=== PATIENT | male | born 1950 | race Caucasian/White ===

== ENCOUNTER 2019-04-12 11:17 | Inpatient (IN) | payer OTHER ==
[~2019-04-12] VITALS: Ht 177.8 cm; Wt 90.7 kg
[~2019-04-12 11:17] MED LIST: ASPI81TA85 PO; BENZ150C2 PO; CEFP200T PO; CHLO125TA PO; D3 H10002 PO; FLOM0.4C39 PO; METO25TA4 PO; PLAV1TAB2 PO; SIMV40TA2 PO; ZYLO300T6 PO
[2019-04-12 12:03] LABS: BASO % 0.2 % (0.0-1.0); EOS # 0.1 10^3/uL (0.0-0.5); EOS % 1.9 % (0.0-3.0); HEMATOCRIT 32.4 % (42.0-52.0); HEMOGLOBIN 10.3 g/dl (13.5-17.5); LYMPH # 0.9 10^3/uL (1.5-5.0); LYMPH % 16.9 % (24.0-44.0); MEAN CORPUSCULAR HEMOGLOBIN 30.1 pg (27.0-33.0); MEAN CORPUSCULAR HGB CONC 31.8 g/dl (32.0-36.5); MEAN CORPUSCULAR VOLUME 94.7 fl (80.0-96.0); MONO # 0.3 10^3/uL (0.0-0.8); MONO % 5.4 % (0.0-5.0); NEUTROPHILS % 74.8 % (36.0-66.0); PLATELET COUNT, AUTOMATED 235 10^3/uL (150-450); RED BLOOD COUNT 3.42 10^6/uL (4.30-6.10); WHITE BLOOD COUNT 5.3 10^3/uL (4.0-10.0)
--- NOTE | 2019-04-12 12:09 | REP ---
Portable chest x-ray: Single view. History: Chest pain. Findings: An Rtuhsc-M-Ahcv catheter is noted in place on the right side. EKG monitoring electrodes are seen. The lungs are symmetrically aerated and clear. Heart size is somewhat prominent unchanged. There is slight blunting of the left lateral pleural angle suspected. Impression: Suspect small left pleural effusion. Borderline heart size. Icacaj-B-Ubbm catheter. Electronically Signed by Porfirio Bangura MD 04/12/2019 12:01 P
[2019-04-12] MEDS ORDERED: DIGOXIN INJ 0.5 MG/2 ML AMP (J1160) IV ONE (12:15)
[2019-04-12 12:29] LABS: CK-MB VALUE MASS < 1.0 NG/ML (<3.6); CPK CREATINE PHOSPHOKINASE 68 U/L (39-308); CREATININE FOR GFR 2.21 MG/DL (0.70-1.30); GLOMERULAR FILTRATION RATE 31.5 (>42); MAGNESIUM LEVEL 1.7 MG/DL (1.8-2.4); MB/CK RELATIVE INDEX 1.47 (< OR =4); TROPONIN I < 0.02 NG/ML (< 0.10)
[2019-04-12] MEDS ORDERED: ZOCO80TA PO (12:29)
[2019-04-12] MEDS ORDERED: NON-325T5 PO (12:29)
[2019-04-12] MEDS ORDERED: BENZ200C70 PO (12:29)
[2019-04-12] MEDS ORDERED: COLA100C5 PO (12:29)
[2019-04-12] MEDS ORDERED: ENAL20TA PO (12:29)
[2019-04-12] MEDS ORDERED: FLOM0.4C39 PO (12:29)
[2019-04-12] MEDS ORDERED: ONDA4TAB5 PO (12:29)
[2019-04-12] MEDS ORDERED: METO50TA7 PO (12:29)
[2019-04-12] MEDS ORDERED: NS 1,000 ML IV ONE (12:30)
[2019-04-12] MEDS ORDERED: PACL1INJ2 IV (12:33)
[2019-04-12] MEDS ORDERED: CARB5INJ3 IV (12:33)
[2019-04-12] MEDS ORDERED: POTASSIUM CHLORIDE 10 MEQ SR TABLET PO ONE (12:45)
--- NOTE | 2019-04-12 13:44 | ECGEPIP ---
[facility] - ED Test Date: 2019-04-12 Pat Name: SHANE NICE Department: Room: - Gender: Male Director Of Therapy Services: : 1950 Requested By: Ramsey Suh Order Number: [id number] Reading MD: Rosetta Rodriguez Measurements Intervals [place] Rate: 118 P: [place]: 0 QRS: -2 QRSD: 87 T: -12 QT: 311 QTc: 437 Interpretive Statements ATRIAL FIBRILLATION WITH RAPID VENTRICULAR RESPONSE NONSPECIFIC ST & T-WAVE ABNORMALITY ABNORMAL RHYTHM ECG NO PRIOR Electronically Signed on 04-12-2019 13:44:09 EST by Rosetta Rodriguez
[2019-04-12] MEDS ORDERED: METOPROLOL TART 25 MG TABLET PO ONE (14:00)
[2019-04-12] MEDS ORDERED: ONDANSETRON 4 MG TAB (S0181) PO PRN (14:00)
[2019-04-12] MEDS ORDERED: BENZONATATE 100 MG CAP PO PRN (14:00)
[2019-04-12] MEDS ORDERED: METOPROLOL TART 25 MG TABLET PO SCH ×2 (14:15→21:00)
[2019-04-12] MEDS ORDERED: METOPROLOL 5 MG/5 ML VIAL IV PRN (14:15)
[2019-04-12] MEDS ORDERED: MAG SULF 1GM/100ML (MAG RUN) 1 GM in IV 1 EA IV ONE (15:00)
--- NOTE | 2019-04-12 15:08 | HPEPDOC ---
General Date of Admission Apr 12, 2019 at 13:51 Date of Service: Apr 12, 2019 Chief Complaint The patient is a 69-year-old male admitted with a reason for visit of Atrial Fibrillation With Rvr. Source: Patient, Family Exam Limitations: No limitations Timing/Duration: Day(s) Severity: Moderate Associated Symptoms: Weakness, Hypotension, Dizziness History of Present Illness Patient is 69 years old male with past medical history bladder carcinoma,Stage III B, [id number] left lung squamous cell carcinoma diagnosed June 2018, status post concurrent chemoradiation, coronary artery diseases, status post stent placement presented with weakness, hypotension. Patient stated that around 1 we ek ago he developed progressive weakness associated with syncope one time. Of note patient recently started second cycle of chemotherapy. Patient stated that he had a poor appetite and did not drink enough water. In emergency room patient was found to have blood pressure of 82/60, with atrial fibrillation on EKG with heart rate 151. Patient received 1 dose of digoxin and fluid resuscitation, his pulse became 120 and blood pressure improved to 126/78, orthostatic vital signs was positive. Patient denies fever, chills, vomiting, increased shortness of breath, diarrhea or dysuria Home Medications Scheduled Allopurinol (Zyloprim) 300 Mg Tablet, 300 MG PO DAILY, (Reported) Aspirin (Aspir 81) 81 Mg Tablet.dr, 81 MG PO DAILY, (Reported) Carboplatin (Carboplatin) 10 Mg/1 Ml Vial, 610 MG IV ASDIRECTED, (Reported) ON DAY 1 OF 21 DAY CYCLE Chlorthalidone (Chlorthalidone) 25 Mg Tablet, 12.5 MG PO DAILY, (Reported) Cholecalciferol (Vitamin D3) (Vitamin D3) 1,000 Unit Capsule, 2,000 UNIT PO DAILY, (Reported) Clopidogrel Bisulfate (Plavix) 75 Mg Tablet, 75 MG PO DAILY, (Reported) Docusate Sodium (Colace) 100 Mg Capsule, 100 MG PO BID, (Reported) Enalapril Maleate (Enalapril Maleate) 20 Mg Tablet, 20 MG PO DAILY, (Reported) Metoprolol Tartrate (Metoprolol Tartrate) 50 Mg Tablet, 25 MG PO BID, (Reported) Paclitaxel (Paclitaxel) 6 Mg/1 Ml Vial, 210 MG IV ASDIRECTED, (Reported) ON DAYS 1,8,15 OF 21 DAY CYCLE Simvastatin (Zocor) 80 Mg Tablet, 40 MG PO QHS, (Reported) Tamsulosin HCl (Flomax) 0.4 Mg Capsule, 0.4 MG PO DAILY, (Reported) Scheduled PRN Acetaminophen (Acetaminophen) 325 Mg Tablet, 650 MG PO Q6H PRN for PAIN, (Reported) Benzonatate (Benzonatate) 200 Mg Capsule, 200 MG PO BID PRN for COUGH, (Reported) Ondansetron HCl (Ondansetron HCl) 4 Mg Tablet, 4 MG PO Q4H PRN for NAUSEA OR VOMITING, (Reported) Allergies Coded Allergies: No Known Allergies (Unverified , 11/06/18) Past Medical History Medical History bladder carcinoma,Stage III B, [id number] left lung squamous cell carcinoma diagnosed June 2018, status post concurrent chemoradiation, coronary artery diseases, status post stent placement, gout Surgical History Aortic aneurysm repair in 2018 Family History His father from colon cancer, mother had diabetes, history of blood clots Social History * Smoker: former Smoker Alcohol: sober A-FIB/CHADSVASC A-FIB History Current/History of A-Fib/PAF?: Yes Current PO Anticoag Therapy: Yes Age/Risk Factor Scoring CHADSVASC: CHADSVASC Response (Comments) Value Age Risk Factor Age 65-74 years old 1 Gender Risk Factor Male 0 Hx of Vascular Disease Yes 1 Total 2 Treatment Treatment ordered: Rivaroxaban Review of Systems Constitutional: Reports: Weakness, Fatigue; Denies: Chills, Fever Eyes: Denies: Pain, Vision change ENT: Denies: Head Aches Skin: Denies: Rash, Lesions Pulmonary: Reports: Cough; Denies: Dyspnea Cardiovascular: Reports: Palpitations, Lt Headedness; Denies: Chest Pain Gastrointestinal: Denies: Nausea, Vomiting Genitourinary: Denies: Dysuria, Frequency Hematologic: Denies: Bruising Endocrine: Denies: Polydipsia, Polyphagia Musculoskeletal: Denies: Neck Pain Neurological: Denies: Weakness, Numbness Psych: Reports: Mood Normal Physical Examination General Exam: Positive: Alert, Cooperative Eye Exam: Positive: PERRLA, Conjunctiva & lids normal ENT Exam: Positive: Atraumatic Neck Exam: Positive: Supple; Negative: JVD Chest Exam: Positive: Rhonchi, Diminished Heart Exam: Positive: Irregular Rhythm Telemetry: Positive: Atrial fibrillation Abdomen Exam: Positive: Normal bowel sounds Extremity Exam: Positive: Cyanosis; Negative: Clubbing Skin Exam: Positive: Nl turgor and temperature Neuro Exam: Positive: Normal Gait, Strength at 5/5 X4 ext, Cranial Nerves 3-12 NL Psych Exam: Positive: Mental status NL Vital Signs Vital Signs Date Time Temp Pulse Resp B/P (MAP) Pulse Ox O2 Delivery O2 Flow Rate FiO2 04/12/19 13:06 120 20 126/78 (94) 98 Room Air 04/12/19 11:23 97.7 Laboratory Data Labs 24H Laboratory Tests 2 04/12/19 11:30: Immature Granulocyte % (Auto) 0.8, Neutrophils (%) (Auto) 74.8H, Lymphocytes (%) (Auto) 16.9L, Monocytes (%) (Auto) 5.4H, Eosinophils (%) (Auto) 1.9, Basophils (%) (Auto) 0.2, Neutrophils # (Auto) 4.0, Lymphocytes # (Auto) 0.9L, Monocytes # (Auto) 0.3, Eosinophils # (Auto) 0.1, Basophils # (Auto) 0.0, Nucleated Red Blood Cells % (auto) 0.0, Glomerular Filtration Rate 31.5L, Magnesium Level 1.7L, Total Creatine Kinase 68, Creatine Kinase MB < 1.0, Creatine Kinase MB Relative Index 1.47, Troponin I < 0.02, Thyroid Stimulating Hormone (TSH) 1.380 04/12/19 11:51: POC Glucose (Misc Panel) 128H, POC Sodium (Misc Panel) 139, POC Potassium (Misc Panel) 3.0L, POC Chloride (Misc Panel) 101, POC Total CO2 (Misc Panel) 25.0, POC Blood Urea Nitrogen (Misc Panel 38H, POC Ionized Calcium (Misc Panel) 4.7, POC Creatinine (Misc Panel) 2.3H, POC Hematocrit (Misc Panel) 33.0L 04/12/19 14:19: CBC/BMP Laboratory Tests 04/12/19 11:30 Assessment/Plan Patient is 69 years old male with past medical history bladder carcinoma,Stage III B, [id number] left lung squamous cell carcinoma diagnosed June 2018, status post concurrent chemoradiation, coronary artery diseases, status post stent p lacement presented with weakness, hypotension. Patient stated that around 1 week ago he developed progressive weakness associated with syncope one time. Patient was found to have atrial fibrillation with rapid ventricular rate Problems (1) Atrial fibrillation with RVR Status: Acute Problem Text: New onset of atrial fibrillation Gerson Vasc score 2 Xarelto PO I increased the dose of metoprolol to 50 mg by mouth twice a day Lopressor 5 mg IV when necessary Echo (2) Hypotension Problem Text: Most likely secondary to atrial fibrillation and dehydration Improved after IV fluid resuscitation (3) Hypomagnesemia Status: Acute Problem Text: Replaced (4) Hypokalemia Status: Acute Problem Text: Replaced (5) Acute renal failure Status: Acute Problem Text: Most likely secondary to dehydration due to poor oral intake Continue to monitor Continue IV hydration (6) Stage III squamous cell carcinoma of left lung Onset Date: ~ 06/2018 Status: Chronic Problem Text: Follow-up with oncologist in the outpatient settings (7) Coronary artery disease Status: Chronic Problem Text: Continue cardioprotective medications Plan / VTE VTE Prophylaxis Ordered?: Yes ANTHONY JONES DO Apr 12, 2019 15:08
[2019-04-12 15:14] LABS: BLOOD UREA NITROGEN 40 MG/DL (7-18); CALCIUM LEVEL 8.6 MG/DL (8.8-10.2); CARBON DIOXIDE LEVEL 27 MEQ/L (21-32); CHLORIDE LEVEL 106 MEQ/L (98-107); GLOMERULAR FILTRATION RATE 35.3 (>42); GLUCOSE, FASTING 126 MG/DL (70-100); MAGNESIUM LEVEL 1.7 MG/DL (1.8-2.4); POTASSIUM SERUM 3.7 MEQ/L (3.5-5.1); SODIUM LEVEL 142 MEQ/L (136-145); TROPONIN I < 0.02 NG/ML (< 0.10)
[2019-04-12 15:38] VITALS: BP 94/66
[2019-04-12] MEDS: NS 1,000 ML IV SCH (16:09)
[2019-04-12] MEDS: CLOPIDOGREL 75 MG TAB PO SCH (16:12)
[2019-04-12] MEDS ORDERED: RIVAROXABAN 10 MG TAB (XARELTO) PO SCH (18:00)
[2019-04-12] MEDS ORDERED: SLF 3 ML SYR IV PRN (18:30)
[2019-04-12 20:00] VITALS: BP 121/68
[2019-04-12] MEDS ORDERED: SIMVASTATIN 40 MG TAB PO SCH (21:00)
[2019-04-12] MEDS: DOCUSATE SODIUM 100 MG CAP PO SCH (21:17)
[2019-04-12] MEDS: ACETAMINOPHEN TAB 650MG DOSE (2X325MG) PO PRN (21:18)
[2019-04-12] MEDS: SLF 3 ML SYR IV SCH (21:19)
[2019-04-12] MEDS: METOPROLOL TART 25 MG TABLET PO SCH (21:19)
[2019-04-13] VITALS: BP 98/58
[2019-04-13] MEDS: NS 1,000 ML IV SCH (02:35)
[2019-04-13 04:00] VITALS: BP 101/54
[2019-04-13] MEDS: SLF 3 ML SYR IV SCH (05:02)
[2019-04-13 06:21] LABS: HEMATOCRIT 26.3 % (42.0-52.0); HEMOGLOBIN 8.4 g/dl (13.5-17.5); MEAN CORPUSCULAR HEMOGLOBIN 30.4 pg (27.0-33.0); MEAN CORPUSCULAR HGB CONC 31.9 g/dl (32.0-36.5); MEAN CORPUSCULAR VOLUME 95.3 fl (80.0-96.0); PLATELET COUNT, AUTOMATED 166 10^3/uL (150-450); RED BLOOD COUNT 2.76 10^6/uL (4.30-6.10); WHITE BLOOD COUNT 3.7 10^3/uL (4.0-10.0)
[2019-04-13 06:31] LABS: ALBUMIN 2.5 GM/DL (3.2-5.2); ALT/SGPT 22 U/L (12-78); BILIRUBIN,TOTAL 0.3 MG/DL (0.2-1.0); BLOOD UREA NITROGEN 33 MG/DL (7-18); CALCIUM LEVEL 8.7 MG/DL (8.8-10.2); CARBON DIOXIDE LEVEL 25 MEQ/L (21-32); CHLORIDE LEVEL 110 MEQ/L (98-107); GLOMERULAR FILTRATION RATE 49.3 (>42); GLUCOSE, FASTING 110 MG/DL (70-100); POTASSIUM SERUM 3.8 MEQ/L (3.5-5.1); SODIUM LEVEL 141 MEQ/L (136-145); TOTAL PROTEIN 6.2 GM/DL (6.4-8.2); TROPONIN I < 0.02 NG/ML (< 0.10)
[2019-04-13 07:34] LABS: MAGNESIUM LEVEL 1.7 MG/DL (1.8-2.4)
[2019-04-13 08:00] VITALS: BP 119/70
[2019-04-13] MEDS ORDERED: ENALAPRIL MALEATE 10 MG TAB PO SCH (09:00)
[2019-04-13] MEDS ORDERED: VITAMIN D 1,000 INTERNATIONAL UNITS TABLET PO SCH (09:00)
[2019-04-13] MEDS ORDERED: ALLOPURINOL 300 MG TAB PO SCH (09:00)
[2019-04-13] MEDS ORDERED: TAMSULOSIN 0.4 MG CAP PO SCH (09:00)
[2019-04-13] MEDS ORDERED: ASPIRIN 81 MG ENTERIC TAB PO SCH (09:00)
[2019-04-13] MEDS: DOCUSATE SODIUM 100 MG CAP PO SCH (09:25)
[2019-04-13] MEDS: CLOPIDOGREL 75 MG TAB PO SCH (09:26)
[2019-04-13] MEDS: ACETAMINOPHEN TAB 650MG DOSE (2X325MG) PO PRN (09:26)
[2019-04-13] MEDS: METOPROLOL TART 25 MG TABLET PO SCH (09:27)
[2019-04-13 11:18] VITALS: BP 119/70
[2019-04-13 12:00] VITALS: BP 109/58
[2019-04-13] MEDS ORDERED: XARE10TA PO (12:13)
[2019-04-13] MEDS ORDERED: METO1TAB87 PO (12:13)
--- NOTE | 2019-04-13 14:22 | DS.PDOC ---
Discharge Summary General Date of Admission Apr 12, 2019 at 13:51 Date of Discharge 04/13/19 Discharge Summary PROCEDURES PERFORMED DURING STAY: [None]. ADMITTING DIAGNOSES: Atrial fibrillation with RVR Hypotension Hypomagnesemia Hypokalemia Acute renal failure Stage III squamous cell carcinoma of left lung Coronary artery disease DISCHARGE DIAGNOSES: Atrial fibrillation with RVR Hypotension Hypomagnesemia Hypokalemia Acute renal failure Stage III squamous cell carcinoma of left lung Coronary artery disease COMPLICATIONS/CHIEF COMPLAINT: Atrial Fibrillation With Rvr. HISTORY OF PRESENT ILLNESS: Patient is 69 years old male with past medical history bladder carcinoma,Stage III B, [id number] left lung squamous cell carcinoma diagnosed June 2018, status post concurrent chemoradiation, coronary artery diseases, status post stent placement presented with weakness, hypotension. Patient stated that around 1 week ago he developed progressive weakness associated with syncope one time. Of note patient recently started second cycle of chemotherapy. Patient stated that he had a poor appetite and did not drink enough water. In emergency room patient was found to have blood pressure of 82/60, with atrial fibrillation on EKG with heart rate 151. Patient received 1 dose of digoxin and fluid resuscitation, his pulse became 120 and blood pressure improved to 126/78, orthostatic vital signs was positive. Patient denies fever, chills, vomiting, increased shortness of breath, diarrhea or dysuria HOSPITAL COURSE: During hospital stay following issue addressed (1) Atrial fibrillation with RVR New onset of atrial fibrillation Gerson Vasc score 2 Xarelto PO I increased the dose of metoprolol to 50 mg by mouth twice a day. On 04/13/19 heart rate is within normal limit Lopressor 5 mg IV when necessary Echo (2) Hypotension Problem Text: Most likely secondary to atrial fibrillation and dehydration Improved after IV fluid resuscitation (3) Hypomagnesemia Status: Acute Problem Text: Replaced (4) Hypokalemia Status: Acute Problem Text: Replaced (5) Acute renal failure Improved Most likely secondary to dehydration due to poor oral intake Patient received IV hydration (6) Stage III squamous cell carcinoma of left lung Onset Date: ~ 06/2018 Status: Chronic Problem Text: Follow-up with oncologist in the outpatient settings (7) Coronary artery disease Status: Chronic Problem Text: Continue cardioprotective medications DISCHARGE MEDICATIONS: Please see below. ALLERGIES: Please see below. PHYSICAL EXAMINATION ON DISCHARGE: VITAL SIGNS: Please see below. GENERAL APPEARANCE: Well-nourished, well-developed, not in apparent distress HEENT: Normocephalic, atraumatic. Mucous members moist and pink CARDIOVASCULAR: S1-S2, irregularly irregular LUNGS: . Diminished lung sounds, ABDOMEN: Bowel sounds are hypoactive. Abdomen is soft and nontender. MUSCULOSKELETAL: Range of motion is intact in all 4 extremities NEUROLOGICAL: Cranial nerves II-12 are grossly intact. Speech is not dysarthric LABORATORY DATA: Please see below. IMAGING: Test Date: 2019-04-12 Pat Name: SHANE NICE Department: Room: - Gender: Male Assisted Living Administrator: : 1950 Requested By: Ramsey Suh Order Number: [id number] Reading MD: Rosetta Rodriguez Measurements Intervals [place] Rate: 118 P: TX: 0 QRS: -2 QRSD: 87 T: -12 QT: 311 QTc: 437 Interpretive Statements ATRIAL FIBRILLATION WITH RAPID VENTRICULAR RESPONSE NONSPECIFIC ST & T-WAVE ABNORMALITY ABNORMAL RHYTHM ECG NO PRIOR Electronically Signed on 04-12-2019 13:44:09 EST by Rosetta Rodriguez DD: Rosetta Rodriguez MD 04/12/19 1143 DT: KENIA 04/12/19 1344 DS: HUONG 04/12/19 1344 04/12/19 1344 DS2: PROGNOSIS: Favorable ACTIVITY:As tolerated DIET: Cardiac DISCHARGE PLAN: Home DISCHARGE INSTRUCTIONS: Continue taking prescribed medications ITEMS TO FOLLOWUP ON ON OUTPATIENT: PCP, oncologist, sql server architect next week DISCHARGE CONDITION: Stable TIME SPENT ON DISCHARGE: Greater than 20 minutes. Vital Signs/I&Os Vital Signs Date Time Temp Pulse Resp B/P (MAP) Pulse Ox O2 Delivery O2 Flow Rate FiO2 04/13/19 12:00 97.8 78 16 109/58 (75) 97 Room Air I&O- Last 24 Hours up to 6 AM 04/13/19 06:00 Intake Total 2800 ml Output Total 550 ml Balance 2250 ml Laboratory Data Labs 24H Laboratory Tests 2 04/12/19 14:19: Anion Gap 9, Glomerular Filtration Rate 35.3L, Calcium Level 8.6L, Magnesium Level 1.7L, Troponin I < 0.02, Thyroid Stimulating Hormone (TSH) 1.050 04/12/19 17:37: Magnesium Level 2.1 04/12/19 21:58: Troponin I < 0.02 04/13/19 05:41: Anion Gap 6L, Glomerular Filtration Rate 49.3, Calcium Level 8.7L, Magnesium Level 1.7L, Troponin I < 0.02, Nucleated Red Blood Cells % (auto) 0.0, Total Bilirubin 0.3, Aspartate Amino Transf (AST/SGOT) 11, Alanine Aminotransferase (ALT/SGPT) 22, Alkaline Phosphatase 80, Total Protein 6.2L, Albumin 2.5L, Albumin/Globulin Ratio 0.68L CBC/BMP Laboratory Tests 04/12/19 14:19 04/13/19 05:41 Discharge Medications Scheduled Allopurinol (Zyloprim) 300 Mg Tablet, 300 MG PO DAILY, (Reported) Aspirin (Aspir 81) 81 Mg Tablet.dr, 81 MG PO DAILY, (Reported) Carboplatin (Carboplatin) 10 Mg/1 Ml Vial, 610 MG IV ASDIRECTED, (Reported) ON DAY 1 OF 21 DAY CYCLE Chlorthalidone (Chlorthalidone) 25 Mg Tablet, 12.5 MG PO DAILY, (Reported) Cholecalciferol (Vitamin D3) (Vitamin D3) 1,000 Unit Capsule, 2,000 UNIT PO DAILY, (Reported) Clopidogrel Bisulfate (Plavix) 75 Mg Tablet, 75 MG PO DAILY, (Reported) Docusate Sodium (Colace) 100 Mg Capsule, 100 MG PO BID, (Reported) Enalapril Maleate (Enalapril Maleate) 20 Mg Tablet, 20 MG PO DAILY, (Reported) Metoprolol Tartrate (Metoprolol Tartrate) 25 Mg Tablet, 50 MG PO BID Paclitaxel (Paclitaxel) 6 Mg/1 Ml Vial, 210 MG IV ASDIRECTED, (Reported) ON DAYS 1,8,15 OF 21 DAY CYCLE Rivaroxaban (Xarelto) 10 Mg Tablet, 10 MG PO DAILY@18 Simvastatin (Zocor) 80 Mg Tablet, 40 MG PO QHS, (Reported) Tamsulosin HCl (Flomax) 0.4 Mg Capsule, 0.4 MG PO DAILY, (Reported) Scheduled PRN Acetaminophen (Acetaminophen) 325 Mg Tablet, 650 MG PO Q6H PRN for PAIN, (Reported) Benzonatate (Benzonatate) 200 Mg Capsule, 200 MG PO BID PRN for COUGH, (Reported) Ondansetron HCl (Ondansetron HCl) 4 Mg Tablet, 4 MG PO Q4H PRN for NAUSEA OR VOMITING, (Reported) Allergies Coded Allergies: No Known Allergies (Unverified , 11/06/18) ANTHONY JONES DO Apr 13, 2019 14:22
--- NOTE | 2019-04-13 14:31 | ECHO ---
DATE OF PROCEDURE: DATE OF STUDY: 04/12/2019 DATE OF : 1950 AGE: 69 REFERRING PROVIDER: Dr. Abiodun Doyle PATIENT LOCATION: Room 3244 REASON FOR THE STUDY: Atrial fibrillation. 2-D MEASUREMENTS: IVS: 1.0 cm LV: 5.4 cm LVPW: 1.1 cm LA: 2.9 cm Aorta: 3.9 cm RV: 2.3 cm IVC: 1.5 cm DOPPLER MEASUREMENTS: Peak velocity across the aortic valve: 1.1 m/s Mitral E: 0.75 Mitral A: 0.90 Ratio: 0.8 2-D COMMENTS: 1. Normal left ventricular size, wall thickness, and overall global left ventricular systolic function. The estimated left ventricular systolic ejection fraction is 55-60%. 2. Normal left atrium. 3. Normal right atrium and right ventricle. 4. The atrial septum appeared to be normal without evidence of defect or shunt. 5. Normal aortic root. Not mentioned above, the ascending aorta is mildly enlarged at 3.7 cm. 6. Small pericardial effusion noted, no evidence of cardiac tamponade. 7. The aortic valve, mitral valve, and tricuspid valve appeared to be normal. The pulmonic valve and proximal pulmonary artery branches were not well visualized. 8. The inferior vena cava was normal in size, central venous pressure is most likely normal. 9. A liver cyst was noted. DOPPLER: No significant valvular abnormalities detected. Abnormal relaxation pattern was noted across the mitral valve leaflets as well as the mitral valve annulus consistent with features of grade 1 left ventricular diastolic dysfunction. IMPRESSION: 1. Normal global left ventricular systolic function. There are some features of grade 1 left ventricular diastolic dysfunction manifested by abnormal relaxation. 2. A small pericardial effusion was noted, no evidence of cardiac tamponade. 3. Mildly dilated ascending aorta at 3.7 cm. 4. No significant valvular abnormalities detected. 5. A liver cyst was noted. The patient might benefit from further imaging study. 6. The patient was in normal sinus rhythm during the test.
== END 2019-04-13 14:19 | disposition home or self-care (01) | DRG 309 ==
LOC: M ED 11:17 → M ED INP 13:51 → M PCU 15:32
PROVIDERS: ADMIT Internal Medicine; ATTEND Internal Medicine
DX: I48.91 Unspecified atrial fibrillation (principal); C34.92 Malignant neoplasm of unspecified part of left bronchus or lung; N17.9 Acute kidney failure, unspecified; E83.42 Hypomagnesemia; E86.0 Dehydration; E87.6 Hypokalemia; I95.9 Hypotension, unspecified; I25.10 Atherosclerotic heart disease of native coronary artery without angina pectoris; M10.9 Gout, unspecified; Z85.51 Personal history of malignant neoplasm of bladder; Z92.21 Personal history of antineoplastic chemotherapy; Z79.82 Long term (current) use of aspirin; Z79.01 Long term (current) use of anticoagulants; Z79.899 Other long term (current) drug therapy; Z86.79 Personal history of other diseases of the circulatory system; Z95.828 Presence of other vascular implants and grafts; Z87.891 Personal history of nicotine dependence

== ENCOUNTER → 2019-04-18 | Outpatient (CLI) | payer OTHER ==
[~2019-04-18] MED LIST changes: +BENZ200C70 PO; +CARB5INJ3 IV; +COLA100C5 PO; +ENAL20TA PO; +METO1TAB87 PO; +METO50TA7 PO; +NON-325T5 PO; +ONDA4TAB5 PO; +PACL1INJ2 IV; +XARE10TA PO; +ZOCO80TA PO
--- NOTE | 2019-04-18 18:13 | REP ---
Five views lumbar spine: 04/18/2019. Indication: Low back pain following injury. Comparison: 09/26/2018. Findings: The the patient is status post Endograft aortic and bilateral renal artery stents. There is compression of the superior L1 endplate with mild loss of craniocaudal height. This appears chronic, however, was not present in September. Multilevel degenerative sequelae are redemonstrated. No acute paraspinal soft tissue abnormalities are detected. Impression: Age indeterminate superior L1 endplate compression deformity as described. Otherwise unchanged compared to 09/26/2018. Electronically Signed by Jarred Deleon DO 04/18/2019 06:04 P
--- NOTE | 2019-04-19 00:29 | REP ---
Clinical: Trauma. Fall. Technique: AP and lateral views of the right knee. Findings: Generalized age-related changes are appreciated. No acute fracture or dislocation. No definite effusion. Impression: Generalized age-related changes. No acute fracture or dislocation appreciated Electronically Signed by Prashanth Franco MD 04/19/2019 12:21 A
== END ==
LOC: M RAD 16:13
PROVIDERS: ATTEND Internal Medicine Medical Oncology
DX: M25.561 Pain in right knee (principal); M53.86 Other specified dorsopathies, lumbar region; M54.5 Low back pain

== ENCOUNTER 2019-04-24 13:48 | Emergency (ER) | payer OTHER ==
[~2019-04-24] VITALS: Ht 177.8 cm; Wt 87.3 kg
[2019-04-24] MEDS ORDERED: CLOP75TA2 PO (14:19)
--- NOTE | 2019-04-24 14:39 | REP ---
CHEST, SINGLE VIEW: Single view of the chest is performed and compared to a prior study of 04/12/2019. There is cardiomegaly again noted. There is ectasia of the thoracic aorta. Mediastinal silhouette is unchanged. There is no evidence of acute infiltrate. Right central venous catheter is again seen. IMPRESSION: Stable exam. No acute infiltrate. Electronically Signed by Lalit Childers MD 04/25/2019 11:23 A
[2019-04-24 14:53] LABS: VENOUS BASE EXCESS 0.8 (-2.0-2.0); VENOUS HCO3 25.7 MEQ/L (23.0-27.0); VENOUS O2 SATURATION 79.6 % (60.0-80.0); VENOUS PARTIAL PRESSURE CO2 41.9 mmHg (38.0-50.0); VENOUS PARTIAL PRESSURE O2 45.9 mmHg (30.0-50.0); VENOUS PH 7.405 UNITS (7.330-7.430); VENOUS STANDARD HCO3 24.9 MEQ/L
[2019-04-24 14:57] LABS: BASO % 0.6 % (0.0-1.0); EOS # 0.1 10^3/uL (0.0-0.5); EOS % 3.4 % (0.0-3.0); HEMATOCRIT 26.9 % (42.0-52.0); HEMOGLOBIN 8.5 g/dl (13.5-17.5); LYMPH # 0.6 10^3/uL (1.5-5.0); LYMPH % 19.3 % (24.0-44.0); MEAN CORPUSCULAR HEMOGLOBIN 30.4 pg (27.0-33.0); MEAN CORPUSCULAR HGB CONC 31.6 g/dl (32.0-36.5); MEAN CORPUSCULAR VOLUME 96.1 fl (80.0-96.0); MONO # 0.2 10^3/uL (0.0-0.8); MONO % 6.2 % (0.0-5.0); NEUTROPHILS # 2.2 10^3/uL (1.5-8.5); NEUTROPHILS % 67.4 % (36.0-66.0); PLATELET COUNT, AUTOMATED 191 10^3/uL (150-450); WHITE BLOOD COUNT 3.2 10^3/uL (4.0-10.0)
[2019-04-24 15:12] LABS: INR 1.17; PROTHROMBIN TIME 14.6 SECONDS (11.8-14.0)
[2019-04-24 15:30] LABS: ALBUMIN 2.9 GM/DL (3.2-5.2); ALT/SGPT 31 U/L (12-78); BILIRUBIN,DIRECT < 0.1 MG/DL (0.0-0.2); BILIRUBIN,TOTAL 0.3 MG/DL (0.2-1.0); BLOOD UREA NITROGEN 23 MG/DL (7-18); CALCIUM LEVEL 8.6 MG/DL (8.8-10.2); CARBON DIOXIDE LEVEL 28 MEQ/L (21-32); CHLORIDE LEVEL 105 MEQ/L (98-107); CK-MB VALUE MASS < 1.0 NG/ML (<3.6); CPK CREATINE PHOSPHOKINASE 34 U/L (39-308); CREATININE FOR GFR 1.24 MG/DL (0.70-1.30); GLOMERULAR FILTRATION RATE > 60.0 (>42); GLUCOSE, FASTING 96 MG/DL (70-100); MB/CK RELATIVE INDEX 2.94 (< OR =4); NT-PRO BNP 120 PG/ML (<125); POTASSIUM SERUM 3.6 MEQ/L (3.5-5.1); SODIUM LEVEL 140 MEQ/L (136-145); TOTAL PROTEIN 7.4 GM/DL (6.4-8.2); TROPONIN I < 0.02 NG/ML (< 0.10)
[2019-04-24] MEDS ORDERED: ISOVUE-370 76% 100ML VIAL (Q9967) As Ordered ONE (15:32)
--- NOTE | 2019-04-24 16:37 | REP ---
CT angiography of the abdomen with IV contrast: History: Recent abdominal aortic aneurysm repair. Chest pain, shortness of breath and bloody sputum. History of lung carcinoma. Comparison CT study abdomen and pelvis September 26, 2018. 100 mL of intravenous Isovue [address] findings: Preliminary digital emergency planning and response manager radiograph demonstrates aortobi-iliac stent graft in place. Bowel gas pattern is normal. There is pleuroparenchymal opacity in the left base unchanged. There are new nodular densities in the lung bases particularly in the right base compared to the September 26, 2018 study. There is fatty infiltration of the liver. There are two adjacent low density nonenhancing liver masses consistent with cysts. There is a small left adrenal nodule, which is unchanged. This measures 2.3 cm in greatest diameter. There is an upper pole cyst in the left kidney measuring 4.2 cm in diameter. Smaller cysts are noted in the kidneys bilaterally. There is bilateral intrarenal nephrolithiasis also noted. The largest calculus is in the lower pole right kidney, 6.6 mm in diameter. No hydronephrosis is seen. No pancreatic abnormality is noted. There are calcific densities in the neck of the gallbladder consistent with cholelithiasis. An aortobi-iliac stent graft is seen in place. There is no evidence of Endo leak. There are bilateral renal artery stents. No evidence of retroperitoneal hematoma. There is left colonic diverticulosis without CT evidence of diverticulitis. Small and large bowel loops are unremarkable. A normal appendix is visible in the right lower quadrant. Urinary bladder is unremarkable. Prostate and seminal vesicles appear intact. No abdominal wall defect is seen. Impression: Aortobi-iliac stent graft in place treating a 6.8 cm abdominal aortic aneurysm. No evidence of graft leak or hematoma. Left colonic diverticulosis. Fatty infiltration of the liver. Hepatic and splenic cysts. Bilateral intrarenal nephrolithiasis without hydronephrosis. 2.2 cm left adrenal nodule. Metastatic nodules in the right lung base. Electronically Signed by Porfirio Bangura MD 04/24/2019 05:00 P
--- NOTE | 2019-04-24 16:48 | REP ---
CT pulmonary angiogram: With IV contrast. History: Recent abdominal aortic aneurysm repair. Chest pain shortness of breath. Bloody sputum. The patient gives a history of lung carcinoma. Comparison studies: Comparison CT study March 22, 2019. Contrast dose: 100 ML of Isovue [address] technique: Helical scanning is acquired and overlapping 1.5 mm and contiguous 3 mm axial images are reformatted. In addition, maximum intensity projection and multiplanar re-formation images are generated in sagittal and coronal imaging projections. CT pulmonary angiographic findings: There is good opacification in the pulmonary arterial tree. No vessel cutoff or filling defect is seen in the pulmonary arterial tree to suggest pulmonary embolism. Thoracic aorta is well opacified as well. The ascending aorta is normal in caliber. There is a aneurysm involving the transverse aorta. This segment of the thoracic aorta measures 5.2 cm in greatest transverse dimension. This is unchanged from comparison CT study March 22, 2019. There is no evidence of dissection. There is a tiny amount of left pleural fluid visible today which is a new finding. There are multiple pulmonary nodules bilaterally as before. The largest of these is in the a right lower lobe posteriorly where two adjacent nodules measure 1.6 and 1.5 cm in greatest diameter respectively. There is some patchy consolidation in the left lower lobe posteriorly which is unchanged from 03/22/2019. Right hilar, left hilar, subcarinal, peritracheal, an anterior mediastinal lymphadenopathy is observed. There is left supraclavicular lymphadenopathy as well. There is adenopathy insinuated between the transverse aorta and the trachea displacing the trachea somewhat to the right and narrowing it mildly. There is some mass effect on the brachial cephalic vein and superior vena cava as well although these structures are patent. A right internal jugular central venous Ustomo-P-Uoev catheter is noted in place. No pericardial effusion is appreciated. No bony destructive lesion is seen. Stents are noted in place in the right renal artery. There are low-density lesions in the left lobe of the liver most consistent with cysts unchanged. There is a small mass in the left adrenal gland measuring 2.3 cm in diameter. This is compatible with an adrenal metastasis. There is a cyst in the left kidney measuring 3.9 cm. There are also three tiny intrarenal calculi in the upper pole left kidney. Impression: No CT evidence of pulmonary embolus. 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 No evidence of dissection. Metastatic pulmonary nodules and bulky metastatic mediastinal and hilar lymphadenopathy again seen unchanged from the March 22, 2019 study. Small left adrenal mass. Stable low density lesions in the liver compatible with cysts. Electronically Signed by Porfirio Bangura MD 04/24/2019 05:00 P
[2019-04-24 18:00] VITALS: BP 114/65
[2019-04-24 18:40] LABS: CK-MB VALUE MASS < 1.0 NG/ML (<3.6); CPK CREATINE PHOSPHOKINASE 34 U/L (39-308); MB/CK RELATIVE INDEX 2.94 (< OR =4); TROPONIN I < 0.02 NG/ML (< 0.10)
[2019-04-25] MEDS ORDERED: METO1TAB87 PO (09:20)
--- NOTE | 2019-04-25 15:00 | ECGEPIP ---
[facility] - ED Test Date: 2019-04-24 Pat Name: SHANE NICE Department: Room: - Gender: Male Spanish Interpreter/Translator: AB : 1950 Requested By: Rosetta Rodriguez Order Number: [id number] Reading MD: Ramsey Suazo Measurements Intervals [place] Rate: 92 P: 51 [place]: 171 QRS: 44 QRSD: 86 T: 28 QT: 358 QTc: 443 Interpretive Statements SINUS RHYTHM NONSPECIFIC T-WAVE ABNORMALITY BASELINE ARTIFACT AFFECTS INTERPRETATION RHYTHM/RATE CHANGE COMPARED TO 04/12/19 Electronically Signed on 04-25-2019 15:00:02 EST by Ramsey Suazo
--- NOTE | 2019-04-25 15:01 | ECGEPIP ---
[facility] - ED Test Date: 2019-04-24 Pat Name: SHANE NICE Department: Room: - Gender: Male Hide Buffer: : 1950 Requested By: LEE ANN HUFF Order Number: [id number] Reading MD: Ramsey Suazo Measurements Intervals [place] Rate: 95 P: 49 [place]: 199 QRS: 1 QRSD: 104 T: -7 QT: 372 QTc: 469 Interpretive Statements SINUS RHYTHM NONSPECIFIC T WAVE ABNORMALITIES BASELINE ARTIFACT AFFECTS INTERPRETATION SIMILAR TO PRIOR ON SAME DATE Electronically Signed on 04-25-2019 15:01:00 EST by Ramsey Suazo
--- NOTE | 2019-04-26 10:29 | ED PDOC ---
Post-Departure Follow-Up dr villafuerte faxed formalmreport of cta chest and abd for fu. Gentry Montoya MD Apr 26, 2019 10:29
== END 2019-04-24 19:09 | disposition home or self-care (01) ==
LOC: M ED 13:48
DX: K92.0 Hematemesis (principal); C34.31 Malignant neoplasm of lower lobe, right bronchus or lung; I71.4 Abdominal aortic aneurysm, without rupture; K76.0 Fatty (change of) liver, not elsewhere classified; K57.90 Diverticulosis of intestine, part unspecified, without perforation or abscess without bleeding; K76.89 Other specified diseases of liver; D73.4 Cyst of spleen; E27.9 Disorder of adrenal gland, unspecified; I10 Essential (primary) hypertension; E78.5 Hyperlipidemia, unspecified; N40.0 Benign prostatic hyperplasia without lower urinary tract symptoms; C67.9 Malignant neoplasm of bladder, unspecified; Z87.891 Personal history of nicotine dependence; Z79.899 Other long term (current) drug therapy; Z79.82 Long term (current) use of aspirin; Z79.02 Long term (current) use of antithrombotics/antiplatelets
CPT/HCPCS: 71045; 71275; 74174; 80048; 80076; 82550; 82553; 82803; 83605; 83880; 84443; 84484; 85025; 85610; 87040; 87486; 87581; 87633; 87798; 93005; 93041; 99285; Q9967

== ENCOUNTER → 2019-06-06 | Outpatient (CLI) | payer OTHER ==
[~2019-06-06] MED LIST changes: +CLOP75TA2 PO; +GASTROGRAFIN SOLUTION 30ML (Q9963) As Ordered ONE; +HYDR-4571 PO; +ISOVUE-370 76% 100ML VIAL (Q9967) As Ordered ONE; -SIMV40TA2 PO; +SIMV40TA20 PO
--- NOTE | 2019-06-06 13:48 | REP ---
CT THORACIC ANGIOGRAM: With IV contrast. HISTORY: Pulmonary embolus, shortness of breath, lymphadenopathy. Stage III squamous cell carcinoma left lung. Post two cycles chemotherapy. COMPARISON STUDIES: Comparison study April 24, 2019. CONTRAST DOSE: 100 mL of Isovue [address] TECHNIQUE: Helical scanning is acquired and overlapping 1.5 mm and contiguous 3 mm axial images are reformatted. In addition, maximum intensity projection and multiplanar re-formation images are generated in sagittal and coronal imaging projections. CT PULMONARY ANGIOGRAPHIC FINDINGS: There is good opacification of the pulmonary arterial tree. There is no CT evidence of pulmonary embolus. The transverse aortic aneurysm is again seen measuring 5.5 cm in greatest right to left dimension, previously 5.4 cm. This is essentially unchanged. It is unchanged in craniocaudal span, 5.2 cm. There is no evidence of dissection. The previously noted pulmonary metastatic disease is improved with significant decrease in size and previously noted pulmonary metastatic lesions. The 16 mm nodule identified previously in the right lower lobe of the lung has decreased to a greatest diameter of 9 mm. No new pulmonary nodule is seen. All of the previously noted nodules are smaller. There is a similar proportion a decrease in the size of the scattered mediastinal lymphadenopathy. The left supraclavicular adenopathy is no longer visible. One of the lymph nodes in the anterior mediastinum has decreased from 18 mm in greatest diameter to 11. Right paratracheal lymph node has decreased from a short axis dimension of 23 mm to 15 mm. No new adenopathy is seen. Stable hepatic cysts are noted. The left adrenal nodule is slightly decreased from 23 mm to 20 mm. The right adrenal gland remains normal. In the lung parenchyma, there is a small persistent infiltrate in the left lower lobe which is unchanged. IMPRESSION: No CT evidence of pulmonary embolus. Interval improvement in pulmonary metastatic nodules and in the hilar and mediastinal adenopathy since the recent prior study of April 24, 2019. Essentially stable transverse thoracic aortic aneurysm. Electronically Signed by Porfirio Bangura MD 06/06/2019 02:06 P
--- NOTE | 2019-06-06 13:51 | REP ---
CT ABDOMEN AND PELVIS WITH IV CONTRAST: HISTORY: Shortness of breath, lymphadenopathy, PE. The patient status post chemotherapy for stage III squamous cell carcinoma left lung. Comparison abdomen CT study April 24, 2019. CT CONTRAST DOSE: 100 mL of intravenous Isovue 370. CT FINDINGS: Stable fairly large hepatic cysts and renal cysts are seen. Intrarenal nephrolithiasis is again noted. There is no evidence of hydronephrosis. Cholelithiasis is visible. No focal hepatic mass lesion is seen. Spleen is unremarkable. There is an adrenal nodule on the left measuring 2.0 cm in greatest diameter. Previously 2.3 cm. There is a small descending duodenal diverticulum. No pancreatic lesion is seen. The right adrenal gland is unremarkable. No upper abdominal lymphadenopathy is seen. No retroperitoneal adenopathy or mass lesion is observed. Aortobi-iliac and renal vascular stents remain in place. Abdominal aortic aneurysm is again seen measuring 6.6 cm in greatest diameter unchanged. No evidence of any avascular leak or rupal-aneurysmal fibrosis seen. Left colonic diverticulosis is again noted. No pelvic mass or adenopathy is observed. There is post-traumatic deformity in the right pelvis anteriorly which is old. No bony destructive lesion is appreciated. IMPRESSION: Slight decrease in the size of the previously noted left adrenal nodule. No new adenopathy seen. Cholelithiasis and nephrolithiasis noted. Renal and hepatic cysts again noted. Aortobi-iliac stent graft for abdominal aortic aneurysm. Electronically Signed by Porfirio Bangura MD 06/06/2019 02:07 P
--- NOTE | 2019-06-06 13:58 | REP ---
CT neck soft tissues: 06/06/2019. Indication: Lymphadenopathy. History of non-small cell lung carcinoma. Comparison: 03/22/2019. Technique: Axial CT images of the neck soft tissues were obtained following the IV administration of 100 ml Isovue 370. Coronal and sagittal reconstructions were provided. Findings: The previous level IV/supraclavicular lymphadenopathy has resolved. There are no pathologic lymph nodes on the current study within the neck soft tissues. Please see dedicated chest CT report for additional details. There is medialization of the left vocal cord consistent with paralysis. Bilateral carotid atherosclerotic disease is present. There is no abnormal solid soft tissue mass or fluid collection within the neck soft tissues. No acute ocular or intraorbital abnormalities are present. There is an incompletely evaluated. Small focus of pathologic gadolinium enhancement within the right frontal lobe best appreciated on page/image one of the axial images. No additional significant intracranial abnormalities are detected. Impression: Resolution of the pathologic level IV/supraclavicular lymph nodes. No current cervical lymphadenopathy. Incompletely evaluated focus of enhancement within the right frontal lobe without appreciated edema. Gadolinium enhanced MRI of the brain would be helpful for further characterization. Metastasis is not excluded. Bilateral carotid atherosclerotic disease. 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 Electronically Signed by Jarred Deleon DO 06/06/2019 01:50 P
== END ==
LOC: M RAD 11:07
PROVIDERS: ATTEND Internal Medicine Medical Oncology
DX: R06.02 Shortness of breath (principal); I89.0 Lymphedema, not elsewhere classified

== ENCOUNTER → 2019-06-17 | Outpatient (CLI) | payer OTHER ==
[~2019-06-17] MED LIST changes: -GASTROGRAFIN SOLUTION 30ML (Q9963) As Ordered ONE; +ONDA-83 PO; -ONDA4TAB5 PO
--- NOTE | 2019-06-17 14:55 | REP ---
INDICATION: Evaluate for metastases PROCEDURE: CT head with and without contrast COMPARISON STUDIES: No prior similar FINDINGS: No acute findings. Ventricles, cisterns and sulci within normal limits. No mass effect or midline shift. No abnormal fluid collections. Paranasal sinuses and mastoid air cells are clear. Following contrast, no abnormal enhancement. CONCLUSION: No acute findings. No evidence of metastatic disease to brain or calvarium. Electronically Signed by Yg Berumen MD 06/17/2019 02:46 P
== END ==
LOC: M RAD 13:56
PROVIDERS: ATTEND Internal Medicine Medical Oncology
DX: C34.90 Malignant neoplasm of unspecified part of unspecified bronchus or lung (principal)
CPT/HCPCS: 70470; Q9967

== ENCOUNTER → 2019-09-04 | Outpatient (CLI) | payer OTHER ==
[~2019-09-04] MED LIST changes: +GASTROGRAFIN SOLUTION 30ML (Q9963) As Ordered ONE
--- NOTE | 2019-09-04 13:58 | REP ---
REASON FOR EXAM: History of nonsmall cell lung carcinoma. COMPARISON: Multiple, the latest 06/24/2019. CONTRAST: 100 mL Isovue 370. There has been no significant change in the appearance of the mediastinum or pulmonary jeff. There is adenopathy status quo. There is no significant change in the appearance of the known thoracic aortic aneurysm. There are no pleural or pericardial effusions. There is no significant change in the appearance of the imaged osseous structures. Evaluation of the lung gonzalez shows increased opacification in the left lower lobe compared to the latest prior exam. The lung gonzalez are otherwise unchanged. Tiny scattered pulmonary nodules status quo. IMPRESSION: 1. No significant change in the appearance of the adenopathy. 2. No significant change in the appearance of the thoracic aortic aneurysm. 3. Increased opacity in the left lung lower lobe. This should be correlated clinically. Worsening disease versus pneumonia. Electronically Signed by Daniel Noel DO 09/04/2019 02:13 P
--- NOTE | 2019-09-04 14:15 | REP ---
REASON FOR EXAM: Followup. Patient has a history of nonsmall cell lung carcinoma. Multiple priors were reviewed, the latest of which is dated 06/06/2019. Contrast 100 mL Isovue 370. The liver, gallbladder, spleen, pancreas, adrenal glands, and kidneys are unchanged. Note is again made of hepatic cysts, renal cysts, and a left adrenal gland nodule. The abdominal aorta and paraaortic regions are unchanged. Note is again made of an abdominal aortic aneurysm which has undergone previous aortoiliac stent graft placement status quo. There is no free fluid or free air in the abdomen. The bowel loops and the mesenteries are essentially unchanged and again seen to be within normal limits. No intra-abdominal mass or adenopathy has developed. Stable lymph nodes are seen in the juan hepatis and near the celiac axis. CT PELVIS: The bowel loops and their mesenteries are essentially unchanged. No mass or adenopathy has developed. There is no free fluid or free air. Bone window technique through the examination shows no significant change in the appearance of the imaged osseous structures. IMPRESSION: 1. No significant change from the prior exam. There are hepatic cysts. There is cholelithiasis. No bilateral renal cysts. There is an unchanged left adrenal gland nodule. This could represent a metastatic focus. No noncontrast enhanced adrenal images were obtained today. If it represents a known metastatic focus, then it is stable. There is scattered colonic diverticulosis. 2. Other findings as described above. Electronically Signed by Daniel Noel DO 09/04/2019 03:03 P
== END ==
LOC: M RAD 10:49
PROVIDERS: ATTEND Internal Medicine Medical Oncology
DX: C34.90 Malignant neoplasm of unspecified part of unspecified bronchus or lung (principal)
CPT/HCPCS: 71260; 74177; Q9963; Q9967

== ENCOUNTER → 2019-11-05 | Outpatient (CLI) | payer OTHER ==
[~2019-11-05] MED LIST changes: +AZIT-12 PO; -GASTROGRAFIN SOLUTION 30ML (Q9963) As Ordered ONE; +GUAI20TA PO; -ISOVUE-370 76% 100ML VIAL (Q9967) As Ordered ONE; +VITAD1000T PO
--- NOTE | 2019-11-06 10:27 | REP ---
REASON FOR EXAM: Followup recurrent metastatic squamous cell carcinoma of the lung diagnosed March 2019. Patient's last chemoradiation therapy was August 2017 but the patient's last chemotherapy only 07/11/2019. No prior CT/PET scans for comparison . Previous CT examination of the chest, abdomen and pelvis, 09/04/2019 was reviewed. After the intravenous administration of 8.15 millicuries of FDG 18, triplane whole body PET/CT was performed from the skull base to the mid thigh. Patient also has a history of invasive transitional cell carcinoma of the urinary bladder. There is abnormal hypermetabolic activity which is of laryngeal origin and on the right with a maximal SUV value of 6.66. There is a focus of abnormal hypermetabolic activity seen in the left parotid space, which has a maximal SUV value of 5.74 and measures approximately 8 mm. In the right parotid space, there is a focus of abnormal hypermetabolic activity in a node, which measures approximately 1.3 cm. In the left subclavian region, there are two foci of hypermetabolic activity. One appears to be at least in part vascular while the other is focal and has a maximal SUV value of 10.34. There is marked mediastinal and hilar bulky adenopathy. In the mediastinum, the hypermetabolic activity has maximal SUV values of 15.53 and in the subcarinal region, the maximal SUV value is 8.3. The mediastinal adenopathy deviates the trachea to the right. There is hypermetabolic activity in the pulmonary jeff with an SUV value on the right of 9.28 and on the left 10.35. In the left lung base, there is abnormal hypermetabolic activity with maximal SUV value of 12.78. This abnormal areas measures approximately 4 x 2.5 cm. In the right lung base, there is a 1.1 cm sized nodule which is hypermetabolic having maximal SUV value of 5.12. Once again, note is made of an aortic aneurysm and an hepatic cyst appearing stable when compared to the latest prior standard CT. No other abnormal hypermetabolic foci are seen in the neck, chest, abdomen, or pelvis. IMPRESSION: There is extensive metastatic disease with hypermetabolic activity seen in the neck and chest as described above. Whether the activity seen in each parotid space is due to concomitant parotid gland disease or is due to metastatic parotid space lymph node disease cannot be determined by this exam. This should be correlated clinically with appropriate followup. Other findings as described above. Electronically Signed by Daniel Noel DO 11/06/2019 11:28 A
== END ==
LOC: M PLARAD 11:32
PROVIDERS: ATTEND Internal Medicine Medical Oncology
DX: C34.32 Malignant neoplasm of lower lobe, left bronchus or lung (principal); Z85.51 Personal history of malignant neoplasm of bladder; K76.89 Other specified diseases of liver; I71.9 Aortic aneurysm of unspecified site, without rupture; C79.89 Secondary malignant neoplasm of other specified sites
CPT/HCPCS: 78815; A9552

== ENCOUNTER 2019-11-14 03:13 | Inpatient (IN) | payer OTHER ==
[~2019-11-14] VITALS: Ht 177.8 cm; Wt 87.5 kg
[~2019-11-14 03:13] MED LIST changes: -GUAI20TA PO; -VITAD1000T PO
[2019-11-14] MEDS ORDERED: GUAI20TA PO (03:37)
[2019-11-14 04:20] LABS: HEMATOCRIT 35.1 % (42.0-52.0); HEMOGLOBIN 11.3 g/dl (13.5-17.5); MEAN CORPUSCULAR HGB CONC 32.2 g/dl (32.0-36.5); MEAN CORPUSCULAR VOLUME 96.2 fl (80.0-96.0); PLATELET COUNT, AUTOMATED 295 10^3/uL (150-450); RED BLOOD COUNT 3.65 10^6/uL (4.30-6.10); WHITE BLOOD COUNT 8.2 10^3/uL (4.0-10.0)
[2019-11-14 04:29] LABS: BLOOD UREA NITROGEN 13 MG/DL (7-18); CALCIUM LEVEL 8.4 MG/DL (8.8-10.2); CARBON DIOXIDE LEVEL 27 MEQ/L (21-32); CHLORIDE LEVEL 108 MEQ/L (98-107); CREATININE FOR GFR 1.04 MG/DL (0.70-1.30); GLOMERULAR FILTRATION RATE > 60.0 (>42); GLUCOSE, FASTING 126 MG/DL (70-100); POTASSIUM SERUM 3.4 MEQ/L (3.5-5.1); SODIUM LEVEL 144 MEQ/L (136-145)
[2019-11-14] MEDS ORDERED: ZYLO300T6 PO (05:13)
[2019-11-14] MEDS ORDERED: VITAD1000T PO (05:14)
[2019-11-14] MEDS ORDERED: KCL 10MEQ/100ML SWI (KRUN) 10 MEQ in IV 1 EA IV SCH (05:30)
--- NOTE | 2019-11-14 05:44 | HPEPDOC ---
[facility] Medical History & Physical Date of Admission Nov 14, 2019 Date of Service: Nov 14, 2019 Attending Physician: AUGUST LEWIS MD History and Physical CHIEF COMPLAINT: Hemoptysis HISTORY OF PRESENT ILLNESS: 69-year-old male with past medical history of metastatic lung cancer status post chemotherapy, currently on immunotherapy, atrial fibrillation on Xarelto, coronary artery disease, hypertension and hyperlipidemia presents from home with hemoptysis. It started 4 hours ago, has coughed up roughly 1 cup of blood, reports bleeding has now stopped. He does report mild dyspnea, no other associated symptoms. Denies any chest pain, nausea, vomiting, diarrhea or constipation. 10 point review of system is negative except for above PAST MEDICAL HISTORY: 1. Lung cancer. 2. Coronary artery disease. 3. Peripheral artery disease. 4. Hypertension PAST SURGICAL HISTORY: 1. AAA repair. 2. Bladder surgery. 3. Renal stent placement. SOCIAL HISTORY: Previous smoker, smoked 1 pack per day for 50 years Denies alcohol use. Denies drug use FAMILY HISTORY: Positive for malignancy ALLERGIES: Please see below. HOME MEDICATIONS: Please see below. PHYSICAL EXAMINATION: VITAL SIGNS: Please see below. GENERAL: No distress HEENT: Normocephalic, atraumatic, moist mucous membranes NECK: Supple CARDIOVASCULAR EXAMINATION: S1, S2, no murmurs RESPIRATORY EXAMINATION: Scattered rhonchi, no wheezing ABDOMINAL EXAMINATION: Soft, nontender, nondistended, positive bowel sounds EXTREMITIES: Range of motion intact SKIN: No rash NEUROLOGICAL EXAMINATION: Alert and oriented 3, no focal deficits PSYCHIATRIC EXAMINATION: Calm and cooperative LABORATORY DATA: See below. IMAGING: Chest x-ray without acute pathology MICROBIOLOGY: Please see below. ASSESSMENT: 69-year-old male with multiple medical comorbidities including lung cancer and atrial fibrillation for which she is on anticoagulation and is being admitted for hemoptysis.. PLAN: 1. Hemoptysis Patient is reportedly taking aspirin, Plavix and Xarelto, unable to tell me if he had any cardiac stents previously, reports aspirin, Plavix usage due to AAA repair, will hold aspirin, Plavix and Xarelto for now, hemoptysis seems to have stopped, H&H stable, patient comfortable on room air at this time. 2. Coronary artery disease/peripheral artery disease. Holding her aspirin/Plavix, continue statin and beta matheus. 3. Metastatic lung cancer. Status post chemotherapy, currently on immunotherapy 4. Atrial fibrillation. Hold Xarelto, continue metoprolol for rate control. DVT prophylaxis: TEDs. GI prophylaxis: Not needed Vital Signs Vital Signs Date Time Temp Pulse Resp B/P (MAP) Pulse Ox O2 Delivery O2 Flow Rate FiO2 11/14/19 03:31 90 97 11/14/19 03:30 112/70 (84) 11/14/19 03:20 18 Room Air 11/14/19 03:18 97.9 Laboratory Data Labs 24H Laboratory Tests 2 11/14/19 03:39: Nucleated Red Blood Cells % (auto) 0.0, Anion Gap 9, Glomerular Filtration Rate > 60.0, Calcium Level 8.4L CBC/BMP Laboratory Tests 11/14/19 03:39 Home Medications Scheduled Allopurinol (Zyloprim) 300 Mg Tablet, 300 MG PO DAILY Aspirin (Aspir 81) 81 Mg Tablet.dr, 81 MG PO DAILY Cholecalciferol (Vitamin D3) (Vitamin D3) 1,000 Unit Tablet, 2,000 UNITS PO DAILY Clopidogrel Bisulfate (Clopidogrel) 75 Mg Tablet, 75 MG PO DAILY Metoprolol Tartrate (Metoprolol Tartrate) 25 Mg Tablet, 12.5 MG PO BID Simvastatin (Simvastatin) 40 Mg Tablet, 40 MG PO QHS Tamsulosin HCl (Flomax) 0.4 Mg Capsule, 0.4 MG PO DAILY Scheduled PRN Docusate Sodium (Colace) 100 Mg Capsule, 100 MG PO BID PRN for CONSTIPATION Guaifenesin (Guaifenesin) 200 Mg Tablet, 200 MG PO Q8H PRN for COUGH Allergies Coded Allergies: No Known Allergies (Unverified , 11/06/18) A-FIB/CHADSVASC A-FIB History Current/History of A-Fib/PAF?: No AUGUST LEWIS MD Nov 14, 2019 05:44
[2019-11-14] MEDS: NS 1,000 ML IV SCH ×2 (05:45→17:26)
--- NOTE | 2019-11-14 05:46 | REP ---
Clinical: Hemoptysis . Comparison: 04/24/2019 . Findings: [id number] with tip in the SVC. The mediastinum and cardiac silhouette are stable and within normal limits for portable technique. The lung gonzalez are clear without acute consolidation, effusion, or pneumothorax. Skeletal structures are intact. Impression: No acute cardiopulmonary process appreciated. Electronically Signed by Prashanth Franco MD 11/14/2019 05:37 A
[2019-11-14 07:15] VITALS: BP 130/90
[2019-11-14] MEDS: allopurinoL 300 MG TAB PO SCH (09:46)
[2019-11-14] MEDS: METOPROLOL TART 25 MG TABLET PO SCH ×2 (09:46→20:19)
[2019-11-14 12:00] VITALS: BP 110/70
[2019-11-14 13:37] LABS: MAGNESIUM LEVEL 1.5 MG/DL (1.8-2.4)
[2019-11-14 16:00] VITALS: BP 128/80
[2019-11-14] MEDS ORDERED: ISOVUE-370 76% 100ML VIAL As Ordered ONE (16:23)
[2019-11-14] MEDS: TAMSULOSIN 0.4 MG CAP PO SCH (17:25)
[2019-11-14] MEDS ORDERED: ACETAMINOPHEN 500 MG TAB PO PRN (18:15)
[2019-11-14 19:37] LABS: HEMATOCRIT 33.2 % (42.0-52.0); HEMOGLOBIN 10.7 g/dl (13.5-17.5); MEAN CORPUSCULAR HEMOGLOBIN 31.2 pg (27.0-33.0); MEAN CORPUSCULAR HGB CONC 32.2 g/dl (32.0-36.5); MEAN CORPUSCULAR VOLUME 96.8 fl (80.0-96.0); PLATELET COUNT, AUTOMATED 269 10^3/uL (150-450); RED BLOOD COUNT 3.43 10^6/uL (4.30-6.10); WHITE BLOOD COUNT 8.6 10^3/uL (4.0-10.0)
[2019-11-14 20:00] VITALS: BP 134/78
[2019-11-14] MEDS ORDERED: SIMVASTATIN 40 MG TAB PO SCH (21:00)
--- NOTE | 2019-11-14 21:29 | ECGEPIP ---
[facility] - ED Test Date: 2019-11-14 Pat Name: SHANE NICE Department: Room: [place] [address] Gender: Male Magnetic Doctor: lupis : 1950 Requested By: Ramsey Suh Order Number: [id number] Reading MD: Ramsey Suazo Measurements Intervals [place] Rate: 89 P: 31 IN: 179 QRS: 14 QRSD: 87 T: -48 QT: 387 QTc: 471 Interpretive Statements SINUS RHYTHM BASELINE ARTIFACT AFFECTS INTERPRETATION SIMILAR TO 04/24/19 Electronically Signed on 11-14-2019 21:29:21 EDT by Ramsey Suazo
[2019-11-15] VITALS: BP 124/72
[2019-11-15] MEDS: NS 1,000 ML IV SCH ×2 (03:26→11:15)
[2019-11-15 04:00] VITALS: BP 120/64
[2019-11-15 05:08] LABS: BASO % 0.2 % (0.0-1.0); EOS # 0.3 10^3/uL (0.0-0.5); EOS % 4.7 % (0.0-3.0); HEMATOCRIT 30.7 % (42.0-52.0); HEMOGLOBIN 10.1 g/dl (13.5-17.5); LYMPH # 1.1 10^3/uL (1.5-5.0); LYMPH % 16.4 % (24.0-44.0); MEAN CORPUSCULAR HEMOGLOBIN 31.7 pg (27.0-33.0); MEAN CORPUSCULAR HGB CONC 32.9 g/dl (32.0-36.5); MEAN CORPUSCULAR VOLUME 96.2 fl (80.0-96.0); MONO # 0.5 10^3/uL (0.0-0.8); MONO % 7.2 % (0.0-5.0); NEUTROPHILS # 4.7 10^3/uL (1.5-8.5); NEUTROPHILS % 71.2 % (36.0-66.0); PLATELET COUNT, AUTOMATED 243 10^3/uL (150-450); RED BLOOD COUNT 3.19 10^6/uL (4.30-6.10); WHITE BLOOD COUNT 6.6 10^3/uL (4.0-10.0)
[2019-11-15 05:19] LABS: INR 1.16; PROTHROMBIN TIME 14.5 SECONDS (11.8-14.0)
[2019-11-15 05:26] LABS: BLOOD UREA NITROGEN 10 MG/DL (7-18); CALCIUM LEVEL 8.1 MG/DL (8.8-10.2); CARBON DIOXIDE LEVEL 27 MEQ/L (21-32); CHLORIDE LEVEL 111 MEQ/L (98-107); CREATININE FOR GFR 0.85 MG/DL (0.70-1.30); GLOMERULAR FILTRATION RATE > 60.0 (>42); GLUCOSE, FASTING 93 MG/DL (70-100); POTASSIUM SERUM 3.7 MEQ/L (3.5-5.1); SODIUM LEVEL 144 MEQ/L (136-145)
--- NOTE | 2019-11-15 05:26 | REP ---
Clinical: Hemoptysis with history of metastatic lung cancer. Technique: Axial contrast enhanced images from the thoracic inlet to the upper abdomen with coronal and sagittal re-formations. Comparison: 09/04/2019. Findings: The lung gonzalez demonstrate NEW scattered noncalcified presumed metastatic nodules bilaterally including the largest nodule in the right lower lobe measuring approximately 13 mm (image 75). Area of consolidation in the left lower lobe with suspected adjacent 2 cm necrotic metastatic mass lesion is similar to prior examination (images 63 - 75). Increased mediastinal and hilar adenopathy noted. As example, a subcarinal lymph node currently measures 3.6 cm maximal diameter and previously measured 2.8 cm maximal diameter at the same level (image 52). No effusion or pneumothorax. Further evaluation of the mediastinum again demonstrates aneurysmal dilatation involving the thoracic aortic arch and distal descending thoracic aorta through the hiatus to the upper abdomen unchanged from prior examination. Limited upper abdomen demonstrates stable 2 cm left adrenal lesion, cystic changes in the liver, and evidence for cholelithiasis. Simple and complex rounded bilateral renal lesions and 2 mm nonobstructing left renal calculus are also identified. Impression: 1. New scattered bilateral pulmonary metastatic lesions and increased mediastinal/hilar adenopathy noted. 2. Small area of consolidation and adjacent necrotic nodule in the left lower lobe again noted. 3. Stable multifocal thoracic aortic aneurysm and upper abdominal findings as described above. Electronically Signed by Prashanth Franco MD 11/15/2019 05:17 A
[2019-11-15 07:31] LABS: MAGNESIUM LEVEL 1.1 MG/DL (1.8-2.4)
[2019-11-15 08:00] VITALS: BP 134/76
[2019-11-15] MEDS: allopurinoL 300 MG TAB PO SCH (08:43)
[2019-11-15] MEDS: TAMSULOSIN 0.4 MG CAP PO SCH (08:43)
[2019-11-15 08:45] VITALS: BP 134/76
[2019-11-15] MEDS: METOPROLOL TART 25 MG TABLET PO SCH (08:45)
[2019-11-15] MEDS ORDERED: MAG SULF 1GM/100ML (MAG RUN) 1 GM in IV 1 EA IV SCH (09:00)
[2019-11-15] MEDS ORDERED: MAGNESIUM OXIDE 400 MG TAB (MAG-OX) PO ONE (10:30)
[2019-11-15] MEDS ORDERED: MAGN400T2 PO (11:05)
[2019-11-15 12:00] VITALS: BP 132/78
--- NOTE | 2019-11-15 14:17 | DS.PDOC ---
Discharge Summary General Date of Admission Nov 14, 2019 at 05:11 Date of Discharge 11/15/19 Attending Physician: VAIBHAV SANDERS MD Discharge Summary PROCEDURES PERFORMED DURING STAY: [None]. ADMITTING DIAGNOSES: 1. Hemoptysis 2/2 Metastatic Lung cancer DISCHARGE DIAGNOSES: 1.Hemoptysis 2/2 Metastatic Lung cancer COMPLICATIONS/CHIEF COMPLAINT: Chronic A-Fib W/ Rvr,Cad, Hemoptysis, Lung Cancer. HISTORY OF PRESENT ILLNESS: Patient is a 69 year old male with past medical history significant for metastatic recurrent squamous cell carcinoma of the lung diagnosed in 2018 s/p chemoradiation and currently on Keytruda, transitional cell carcinoma of the bladder, severe PAD, AAA w/ endograft repair 2018, and atrial fibrillation on Xarelto who presented to the [facility] ER with c omplaint of hemoptysis. He had stated that he had originally coughed up 1 cup of blood however the bleeding had since stopped on presentation to the ER. He did report shortness of breath which is chronic. He denied any shortness of breath, nausea, vomiting, diarrhea or constipation. In the ER the patient was vitally stable. His blood thinner and antiplatelets were held HOSPITAL COURSE: During the course of the patients hospitalization his hemoglobin remained stable. He did have another episode of hemoptysis which was less than 100ml. The patient was otherwise stable. He did have hypomagnesemia. Patient was found fit to discharge after receiving magnesium however he had refused IV magnesium therapy. The patient was given supplemental magnesium with instructions to follow-up with PCP for recheck of his BMP and Mg. Patient was instructed to stop his aspirin and plavix. He is to follow-up with his vascular surgeon for consideration of restarting Plavix and Aspirin Additionally, patient had received a PET scan as an outpatient on 11/05/2019 for restaging of his lung cancer. It was found that he had an abnormal hypermetabolic activity of laryngeal origin. Patient was referred to ENT for possible scope. DISCHARGE MEDICATIONS: Please see below. ALLERGIES: Please see below. PHYSICAL EXAMINATION ON DISCHARGE: VITAL SIGNS: Please see below. GENERAL: Awake, alert, and oriented. Lying comfortably in bed. Appears in no acute distress HEENT: Atraumatic, normocephalic. Eyes are nonicteric. Trachea is midline CARDIOVASCULAR EXAMINATION: Normal S1, S2. Regular rate and rhythm. No clicks, rubs, or murmurs RESPIRATORY EXAMINATION: Diminished breath sounds throughout. Rhonchorous breath sounds in the left mid and lower lung field. Symmetric chest expansion. Good respiratory effort ABDOMINAL EXAMINATION: Soft, nondistended. Nontender. Normoactive bowel sounds throughout EXTREMITIES: No edema. Full and equal pulses in bilateral upper and lower extremities SKIN: No rashes or lesions NEUROLOGICAL EXAMINATION: No focal neurological deficits PSYCHIATRIC EXAMINATION: Mood and affect appear appropriate LABORATORY DATA: Please see below. IMAGING: Clinical: Hemoptysis . Comparison: 04/24/2019 . Findings: [id number] with tip in the SVC. The mediastinum and cardiac silhouette are stable and within normal limits for portable technique. The lung gonzalez are clear without acute consolidation, effusion, or pneumothorax. Skeletal structures are intact. Impression: No acute cardiopulmonary process appreciated. Electronically Signed by Prashanth Franco MD 11/14/2019 05:37 A Clinical: Hemoptysis with history of metastatic lung cancer. Technique: Axial contrast enhanced images from the thoracic inlet to the upper abdomen with coronal and sagittal re-formations. Comparison: 09/04/2019. Findings: The lung gonzalez demonstrate NEW scattered noncalcified presumed metastatic nodules bilaterally including the largest nodule in the right lower lobe measuring approximately 13 mm (image 75). Area of consolidation in the left lower lobe with suspected adjacent 2 cm necrotic metastatic mass lesion is similar to prior examination (images 63 - 75). Increased mediastinal and hilar adenopathy noted. As example, a subcarinal lymph node currently measures 3.6 cm maximal diameter and previously measured 2.8 cm maximal diameter at the same level (image 52). No effusion or pneumothorax. Further evaluation of the mediastinum again demonstrates aneurysmal dilatation involving the thoracic aortic arch and distal descending thoracic aorta through the hiatus to the upper abdomen unchanged from prior examination. Limited upper abdomen demonstrates stable 2 cm left adrenal lesion, cystic changes in the liver, and evidence for cholelithiasis. Simple and complex rounded bilateral renal lesions and 2 mm nonobstructing left renal calculus are also identified. Impression: 1. New scattered bilateral pulmonary metastatic lesions and increased mediastinal/hilar adenopathy noted. 2. Small area of consolidation and adjacent necrotic nodule in the left lower lobe again noted. 3. Stable multifocal thoracic aortic aneurysm and upper abdominal findings as described above. Electronically Signed by Prashanth Franco MD 11/15/2019 05:17 A PROGNOSIS: Overall Prison Prognosis guarded; poor ACTIVITY: [As tolerated]. DIET: As tolerated DISCHARGE PLAN: Patient is to be discharged home. He is to take oral magnesium. He is to follow-up with PCP for discussion on goals of care as well as repeat blood work including BMP and Magnesium level. He is to stop his aspirin and Plavix. He is to follow-up with his vascular surgeon for recommendations of when/if to restart Plavix and aspirin given hemoptysis. Patient will be referred to ENT for possible scope to assess hypermetabolic laryngeal area noted on PET scan from 11/05/2019. He is to follow-up with Hematology/Oncology DISPOSITION: . DISCHARGE CONDITION: [Stable]. TIME SPENT ON DISCHARGE: Greater than 40 minutes. As preceptor for this patient I was fully available. All aspects of the patient interview, examination, medical decision making process, and medical care plan development were reviewed and approved. Aware and concur with the plan as stated in the body of this note and will attest to such by my cosignature. Vital Signs/I&Os Vital Signs Date Time Temp Pulse Resp B/P (MAP) Pulse Ox O2 Delivery O2 Flow Rate FiO2 11/15/19 12:00 97.4 92 17 132/78 (96) 96 Room Air I&O- Last 24 Hours up to 6 AM 11/15/19 05:59 Intake Total 1700 ml Output Total 800 ml Balance 900 ml Laboratory Data Labs 24H Laboratory Tests 2 11/14/19 19:10: Nucleated Red Blood Cells % (auto) 0.0 11/15/19 04:41: Nucleated Red Blood Cells % (auto) 0.0, Immature Granulocyte % (Auto) 0.3, Neutrophils (%) (Auto) 71.2H, Lymphocytes (%) (Auto) 16.4L, Monocytes (%) (Auto) 7.2H, Eosinophils (%) (Auto) 4.7H, Basophils (%) (Auto) 0.2, Neutrophils # (Auto) 4.7, Lymphocytes # (Auto) 1.1L, Monocytes # (Auto) 0.5, Eosinophils # (Auto) 0.3, Basophils # (Auto) 0.0, Prothrombin Time 14.5H, Prothromb Time International Ratio 1.16, Activated Partial Thromboplast Time 35.0, Anion Gap 6L, Glomerular Filtration Rate > 60.0, Calcium Level 8.1L, Magnesium Level 1.1L CBC/BMP Laboratory Tests 11/14/19 19:10 11/15/19 04:41 Discharge Medications Scheduled Allopurinol (Zyloprim) 300 Mg Tablet, 300 MG PO DAILY, (Reported) Cholecalciferol (Vitamin D3) (Vitamin D3) 1,000 Unit Tablet, 2,000 UNITS PO DAILY, (Reported) Magnesium Oxide (Magnesium Oxide) 400 Mg Tablet, 400 MG PO BID for constipation Metoprolol Tartrate (Metoprolol Tartrate) 25 Mg Tablet, 12.5 MG PO BID, (Re ported) Simvastatin (Simvastatin) 40 Mg Tablet, 40 MG PO QHS, (Reported) Tamsulosin HCl (Flomax) 0.4 Mg Capsule, 0.4 MG PO DAILY, (Reported) Scheduled PRN Docusate Sodium (Colace) 100 Mg Capsule, 100 MG PO BID PRN for CONSTIPATION, (Reported) Guaifenesin (Guaifenesin) 200 Mg Tablet, 200 MG PO Q8H PRN for COUGH, (Reported) Allergies Coded Allergies: No Known Allergies (Unverified , 11/14/19) KATE ADAMS DO Nov 15, 2019 14:17 VAIBHAV SANDERS MD Nov 18, 2019 14:08
[2019-11-15] MEDS ORDERED: METOPROLOL TART 12.5 MG PER 1/2 TAB PO SCH (21:00)
== END 2019-11-15 15:20 | disposition home or self-care (01) | DRG 204 ==
LOC: EDBD 03:13 → M ED 03:13 → M ED INP 05:11 → ENRESERV 05:51 → M PCU 07:13
PROVIDERS: ADMIT Internal Medicine; ATTEND Internal Medicine
DX: R04.2 Hemoptysis (principal); I48.20 Chronic atrial fibrillation, unspecified; C34.90 Malignant neoplasm of unspecified part of unspecified bronchus or lung; C78.01 Secondary malignant neoplasm of right lung; I25.10 Atherosclerotic heart disease of native coronary artery without angina pectoris; I10 Essential (primary) hypertension; E78.5 Hyperlipidemia, unspecified; I73.9 Peripheral vascular disease, unspecified; I71.2 Thoracic aortic aneurysm, without rupture; Z87.891 Personal history of nicotine dependence; Z79.01 Long term (current) use of anticoagulants; Z79.82 Long term (current) use of aspirin; Z79.899 Other long term (current) drug therapy

== ENCOUNTER 2020-03-05 08:08 | Outpatient (RCR) | payer OTHER ==
[2018-11-06 13:48] VITALS: BP 120/79
[2018-11-06 15:10] LABS: HEMATOCRIT 36.2 % (42.0-52.0); HEMOGLOBIN 11.6 g/dl (13.5-17.5); LYMPH % 21.5 % (24.0-44.0); MEAN CORPUSCULAR HEMOGLOBIN 32.2 pg (27.0-33.0); MEAN CORPUSCULAR VOLUME 100.6 fl (80.0-96.0); NEUTROPHILS # 3.9 10^3/uL (1.8-7.7); NEUTROPHILS % 69.3 % (36.0-66.0); RED BLOOD COUNT 3.6 10^6/uL (4.30-6.10); WHITE BLOOD COUNT 5.6 10^3/uL (4.0-10.0)
[2018-11-06 15:24] LABS: BLOOD UREA NITROGEN 12 MG/DL (6-20); CALCIUM LEVEL 8.9 MG/DL (8.5-10.2); CARBON DIOXIDE LEVEL 27 MEQ/L (23-31); CHLORIDE LEVEL 105 MMOL/L (98-107); CREATININE FOR GFR 1.15 MG/DL (0.90-1.30); GLOMERULAR FILTRATION RATE > 60.0 (>49); GLUCOSE, FASTING 94 MG/DL (70-105); POTASSIUM SERUM 4.3 MMOL/L (3.5-5.1); SODIUM LEVEL 140 MMOL/L (135-145); TOTAL PROTEIN 6.6 GM/DL (6.4-8.3)
--- NOTE | 2018-11-07 14:44 | MEDONC ---
MEDICAL ONCOLOGY INITIAL VISIT DATE OF SERVICE: 11/06/2018 REFERRING PROVIDER: JORDON Anguiano, [place] Hematology/Oncology, [facility]. DIAGNOSES: 1. Stage III B, [id number] left lung squamous cell carcinoma diagnosed June 2018 status post concurrent chemoradiation with carboplatin/paclitaxel completed 08/28/2018 referred for adjuvant durvalumab. 2. Incidental finding of bladder mass suspicious for carcinoma [facility] [place] current plan is for TURBT no firm appointment for same yet. HISTORY OF PRESENT ILLNESS: Mr. 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 05/02/2018 PET at [facility] showed a 1.2 cm left parotid gland tissue SUV 10, 1.3 cm right parotid gland SUV 16, a 7 mm right parotid nodule SUV 5.66; in the chest a 5.2 x 3.2 x 2.8 cm multilobulated left lower lobe mass with adjacent pleural thickening SUV 20.94, subcentimeter left hilar lymph nodes present which were not hypermetabolic, and a 1 cm paraesophageal lymph node, SUV 4.42. No other sites of hypermetabolic uptake. 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 Bronchoscopic biopsy 06/15/2018 of the paraesophageal node was positive for moderately differentiated squamous cell carcinoma. Because of the family history of colon cancer he underwent colonoscopy the same day with findings of tubular adenoma and multiple benign colon polyps. From 07/17/2018 - 08/28/2018 he underwent concurrent chemoradiation with weekly carboplatin/paclitaxel at the [facility]. Followup imaging with chest CT 09/27/2018 showed interval decrease in the size of the lung and mediastinal lymph nodes but increase in the known abdominal aortic aneurysm and a new bladder mass. The abdominal aortic aneurysm now measuring greater than 6 cm, with increase in the size of the aortic arch aneurysm as well. I do not have the notes that Mr. Jean-Baptiste reports having seen urology at the [facility] and is now awaiting appointment for a TURBT. He was referred here by his hematology/oncology nurse practitioner to avoid the travel to [place] with a current recommendation for adjuvant durvalumab q. 2 weeks for 1 year. Meanwhile, there is a vascular surgeon in [place] he is waiting to hear from having been told his aortic and abdominal aneurysms requiring open surgery too complex for the [facility] but possibly amendable to surgery in [place]. I have contacted VLAD Schaefer of the [facility] urology service ([phone]) and passed on my cell phone so that the surgeon can call me to discuss this complex patient's medical background. Mr. Jean-Baptiste is accompanied today by his daughter, Elaine Bhatia. She is his point person. She is also his health care proxy. Her telephone is [phone] (cell), and work number [phone]. Mr. Jean-Baptiste denies hemoptysis, says he often coughs up clear or some white phlegm. He has no significant new exertional dyspnea since completing radiation. He denies bowel or bladder complaints. He has no new musculoskeletal pain, has some chronic aches and pains involving his back. PAST MEDICAL HISTORY: Hypertension. BPH. Gout. Hypercholesterolemia. Abdominal aortic aneurysm greater than 5 cm. PAST SURGICAL HISTORY: Bronchoscopy. Colonoscopy. MEDICATIONS: - allopurinol 300 mg daily - aspirin 81 mg daily - chlorthalidone 25 mg 1/2 tablet daily - metoprolol 25 mg b.i.d. - simvastatin 40 mg daily - tamsulosin 0.4 mg daily ALLERGIES: NO KNOWN DRUG ALLERGIES. SOCIAL HISTORY: 40 pack-year smoking history stopped 1 year ago. Denies alcohol. Retired entry level electrician. Lives alone. Legally many years. Lives in [place], [place]. PCP: Guillermo Stahl MD, [place], [place]. FAMILY HISTORY: Father diagnosed with colon cancer age 54. Brother diagnosed with throat cancer. A sister of lung cancer age 61. A paternal uncle had some kind of cancer. A second paternal uncle had colon cancer. A paternal aunt lung cancer, possibly also colon cancer. REVIEW OF SYSTEMS: 12-system written review completed by the patient positive for occasional cough. Remainder of 12-system review negative. PHYSICAL EXAMINATION: Height 175 cm, weight 93 kg, BMI 30.4. Patient is a well-groomed, middle-aged man in no distress. Respiratory: Coarse breath sounds throughout the left lung gonzalez with no basilar rales. Right lung gonzalez clear to auscultation anteriorly and posteriorly. Cardiac: S1, S2, regular rate and rhythm. No murmur. No gallop. Abdomen: Soft, nontender, nondistended. No hepatosplenomegaly or mass. Extremities: No edema. Lymph nodes: No palpable submandibular, cervical, supraclavicular or axillary adenopathy bilaterally. No palpable parotid masses. LABORATORY DATA: WBC 5.6, hemoglobin 11.6, hematocrit 36.2, platelets 277, MCV 100. Electrolytes, liver functions normal. Albumin 4.0. Normal renal function. CEA 2.7. IMPRESSION: Clinical stage III, T3N2M0, squamous cell carcinoma of left lower lobe status post concurrent chemoradiation with carboplatin/paclitaxel completed August 28, 2018 after initial diagnosis of lung cancer in June 2018. 2.3 x 1.4 cm suspicious bladder mass, anticipating TURBT biopsy. Enlarging ascending and descending aortic aneurysm with abdominal aneurysm now measuring 6.8 x 5.4 cm requiring open vascular repair. Albert is a candidate for adjuvant durvalumab immunotherapy following his chemoradiation. He is still within the 12-week window when it would normally be started. However, he also has as an enlarging, potentially life-threatening threatening AAA for which surgical consult may need to be addressed aggressively if there is a chance at repair. I outlined for him the rationale for adjuvant durvalumab, which is to increase overall survival and prolonged time to recurrence. Stage III lung cancer has a fairly high 5-year recurrence rate in both overall and progression free survival improvements have been achieved with adjuvant durvalumab. However, if treatment with durvalumab were to hold up addressing a potentially life-threatening abdominal aortic aneurysm the benefits of durvalumab would be obliterated of course. In addition, he now has a finding of suspicious bladder mass for which a transurethral biopsy is planned. If he needed treatment of an invasive bladder carcinoma with neoadjuvant chemotherapy for example, immunotherapy might have to be interrupted possibly rendering its benefits nil. I suggested a priority list of his problems with perhaps the AAA at the top, bladder mass second and whether or not he undergoes adjuvant durvalumab third. I will continue to try to reach the vascular surgeon in [place] to discuss the complexity of this case and emphasize the stakes in terms of whether or not surgery is pursued. For context, [facility] data on 2-year and 5-year survival for stage III B non-small cell lung carcinoma is 44% and 26% respectively. Data presented at [facility] 2019 showed in a randomized clinical trial of patient's receiving durvalumab following chemoradiation for stage III lung cancer 57% of patients alive at 3 years versus 43% on placebo. These statistics accurately mimic known [facility] data and represent a significant improvement in progression free and potentially overall survival as 5 years. Thus, whether or not Mr. Jean-Baptiste receives durvalumab is a question of moment. PLAN: 1. Care coordination with [facility]. A call has been placed to VLAD Schaefer at [phone], and I will follow this up this week. We will also ask our nurse navigator to help us coordinate a conversation between the vascular surgeon and myself. If Mr. Jean-Baptiste is a very good candidate with a good surgical risk and benefit to open surgery repair his aortic aneurysm this may need to preempt starting durvalumab; if on the other hand his perioperative mortality is very high and/or the long-term survival benefit marginal with the vascular repair he may be better off pursuing adjuvant durvalumab. 2. Will also try to coordinate care with [facility] in [place] to let them know the current issues. My belief is strongly that TURBT should take place first and soon in order to establish whether there is an invasive bladder carcinoma that requires neoadjuvant chemotherapy and surgery. 3. Will start MediPort flushes on a monthly basis. 4. I will see Mr. Jean-Baptiste back in 10 days. Hopefully at that point we can sort out the order of priority for his several complex medical problems. TIME STATEMENT: 60 minutes [id number] with the patient , more than 50% involving counseling regarding the above issues and answering the patient's questions. Another 5 minutes correcting transription errors to the best of my ability. Copies to Guess what? I spelled every name out slowly. Every name. All it would take is listening and typing. Asphalt Distributor Tender. Please look in the difficult to find and sift through [facility] to retrieve this information I SPELLED OUT to make it easier for energy director. Oni Evans MD Vascular Surgery [place] and Olimpia Sapp, Hematology/Oncology Ticket Speculator, [facility] (Medical records, it's my understanding, has the burden of "verifying") Electronically Signed by Laura Ayala MD 11/07/2018 07:12 P DD: Laura Ayala MD 11/06/2018 05:13 P DT: ector 11/07/2018 08:50 A CC: MD Blake Schmid PA William Jorgenson, DO Debra Vincent, MD
[2019-03-28 09:50] VITALS: BP 102/70
[2019-03-28 11:05] LABS: HEMATOCRIT 33.2 % (42.0-52.0); HEMOGLOBIN 10.6 g/dl (13.5-17.5); LYMPH % 17.9 % (24.0-44.0); MEAN CORPUSCULAR HEMOGLOBIN 30.7 pg (27.0-33.0); MEAN CORPUSCULAR HGB CONC 31.9 g/dl (32.0-36.5); MEAN CORPUSCULAR VOLUME 96.2 fl (80.0-96.0); NEUTROPHILS # 5.8 10^3/uL (1.8-7.7); NEUTROPHILS % 72.9 % (36.0-66.0); RED BLOOD COUNT 3.45 10^6/uL (4.30-6.10)
[2019-03-28 11:26] LABS: ALBUMIN 4.2 GM/DL (3.5-5.2); BLOOD UREA NITROGEN 19 MG/DL (6-20); CARBON DIOXIDE LEVEL 27 MEQ/L (23-31); CHLORIDE LEVEL 108 MMOL/L (98-107); CREATININE FOR GFR 1.16 MG/DL (0.90-1.30); GLOMERULAR FILTRATION RATE > 60.0 (>42); GLUCOSE, FASTING 107 MG/DL (70-105); SODIUM LEVEL 145 MMOL/L (135-145); TOTAL PROTEIN 7.6 GM/DL (6.4-8.3)
--- NOTE | 2019-03-29 00:24 | MEDONC ---
MEDICAL ONCOLOGY FOLLOWUP DATE OF SERVICE: 03/26/2019 DIAGNOSIS: 1. Stage IIIB, T3N2M0 squamous cell carcinoma of left lung diagnosed June 2018, status post CCRT with carboplatin/Taxol completed 08/28/2018. Lost to followup between November 2018 when he first visit here and now as he pursued abdominal aortic aneurysm repair and has also been treated for superficial bladder cancer. By his and his daughter's report, he now has widely metastatic lung cancer based on CTs recently done at [facility] during a brief hospitalization on March 23. 2. Presumptive superficial bladder urothelial carcinoma, worked up and treated at [facility], status post cystoscopy and ablative procedures. The patient declined BCG. Awaits next cystoscopy due 04/24/2019 with [facility]. 3. Left ureteral stent, status post removal 01/23/2019, presumptively secondary to bladder mass detected in spring 2018 INTERVAL HISTORY: Mr. Jean-Baptiste is here with his daughter Elaine. He was hospitalized for acute shortness of breath on 03/23/2019, and by his report, a CT shows extensive new metastases. He says "PDL was tested" and his treatment would depend on that. He signed a release today to obtain records from the [facility]. He has images to be uploaded which will help us further. He has followup in April with urology in [place], but says he would like to have treatment up here. From the notes I can gather, which are not recent, he has been treated for superficial bladder cancer in the last year. He underwent a major surgery for AAA repair, but says this was uncomplicated. REVIEW OF SYSTEMS: Cough but no hemoptysis. Exertional dyspnea, worse now than 6 months ago and not much improved since his admission recently. No diarrhea. Occasional constipation. No blood in urine. No abdominal pain. The patient asserts unintended weight loss. Denies sweats. No new leg asymmetry or swelling, occasional headache but he reports head CT in [place] was negative. No visual changes. Remainder of 12 system review negative. PHYSICAL EXAMINATION: Weight 91 kg. Minimal change versus November. Remainder of vital signs are normal and stable. Respiratory: Coarse breath sounds throughout the lung gonzalez but no pretracheal stridor and no overt wheezes. Cardiac: S1, S2, 1/6 systolic murmur. No gallop. Abdomen is soft, nontender, nondistended. No hepatosplenomegaly. No mass. Extremities: Trace pedal pitting edema, bilaterally symmetric. Lymph nodes: No palpable submandibular, cervical, supraclavicular or axillary adenopathy bilaterally. LABORATORY DATA: WBC 8, hemoglobin 10.6, hematocrit 33, platelets 346, MCV 96. Normal electrolytes, renal function and liver function. Albumin 4.2. IMPRESSION: Advanced squamous cell carcinoma of left lung, stage IIIB, T3N2M0 diagnosed June 2018, treated with concurrent chemoradiation, durvalumab deferred for AAA repair and bladder cancer followup. Now, by patient report, with new extensive lung and abdomen metastases, thought lung primary and for which a recent PD-L1 test was being performed "on the old tissue," paucity of available records today. Superficial bladder carcinoma, followed at [facility] in [place]. ECOG performance status: 1-2 PLAN: 1. I had a long talk with Albert and his daughter about goals of care. Explained that when lung cancer has spread to distant areas, it is not curable. It is treated in an effort to control symptoms and progression of disease. Not knowing PD-L1 status, will plan to start Albert on combination carboplatin/paclitaxel and atezolizumab could be added later. I reviewed risks and benefits of this chemotherapy. He had radiosensitizing doses previously. This would be full dose. Risks, benefits and side effects including but not limited to myelosuppression with attendant risk of fatigue, bleeding, infection at the site, alopecia, nausea, vomiting, peripheral neuropathy. Written informed consent was obtained. 2. Obtain records from [facility], all scanned reports and pathology reports. 3. Return to clinic to begin chemotherapy. I will see Albert again day 1. Will try to round up the existing missing information. Low threshold for adding atezolizumab to chemotherapy. TIME STATEMENT: 40 minutes [id number] with the patient; more than 50% involved in counseling, reviewing what is known so far, answering the patient and his daughter's questions to the best of my ability, obtaining written informed. Electronically Signed by Laura Ayala MD 03/29/2019 06:49 P DD: Laura Ayala MD 03/28/2019 12:50 P DT: jill 03/28/2019 11:53 P CC: MD Aguilar Schmid MD Jason Drayton, PA William Jorgensen, DO Debra Vincent, MD
[2019-04-04 08:31] VITALS: BP 115/82
[2019-04-04 09:17] LABS: HEMOGLOBIN 10.9 g/dl (13.5-17.5); LYMPH % 17.3 % (24.0-44.0); MEAN CORPUSCULAR HEMOGLOBIN 30.7 pg (27.0-33.0); MEAN CORPUSCULAR HGB CONC 32.1 g/dl (32.0-36.5); MEAN CORPUSCULAR VOLUME 95.8 fl (80.0-96.0); NEUTROPHILS # 5.8 10^3/uL (1.8-7.7); NEUTROPHILS % 75.1 % (36.0-66.0); RED BLOOD COUNT 3.55 10^6/uL (4.30-6.10); WHITE BLOOD COUNT 7.7 10^3/uL (4.0-10.0)
[2019-04-04 09:34] LABS: ALBUMIN 4.2 GM/DL (3.5-5.2); BLOOD UREA NITROGEN 14 MG/DL (6-20); CARBON DIOXIDE LEVEL 26 MEQ/L (23-31); CHLORIDE LEVEL 104 MMOL/L (98-107); CREATININE FOR GFR 1.12 MG/DL (0.90-1.30); GLOMERULAR FILTRATION RATE > 60.0 (>42); GLUCOSE, FASTING 122 MG/DL (70-105); SODIUM LEVEL 141 MMOL/L (135-145); TOTAL PROTEIN 7.6 GM/DL (6.4-8.3)
--- NOTE | 2019-04-04 10:07 | ONC.PHACK ---
CHEMO ADMIN CHECKLIST Order Contains Pt ID: Name, Order on Chemo Order Form?: Yes Order Form Includes ALL: Correct Tx Day, Correct Date, Correct Cycle Number Pt ID on Order form Matches: Pt ID on PHA Label Med on Chemo OrderForm Matches: PHA Label, Med Used for Preparation [facility] Apr 04, 2019 10:07
--- NOTE | 2019-04-04 11:06 | MEDONC ---
MEDICAL ONCOLOGY FOLLOWUP/TREATMENT VISIT DATE OF SERVICE: 04/04/2019 DIAGNOSES: 1. Intrathoracic metastatic recurrence of stage III B, T3N2M0 squamous cell carcinoma involving left lung diagnosed June 2018 status post CCRT with weekly carboplatin/Taxol completed August 2018. Long delay before medical oncology initial visit 11/2018, deferred adjuvant durvalumab for AAA surgery. Now with metastatic recurrence of disease involving lung identified on recent CAT scans at [facility] during March 2019 hospitalization. Pathology from June 2018 paraesophageal lymph node biopsy, EGFR, ALK, KRAS negative; PD-L1 1% (negative). 2. 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 Albert is here to begin chemotherapy with carboplatin/Taxol for which he signed written informed consent last week. He was previously treated with weekly carboplatin/Taxol during chemoradiation in 2019. Today, he reports he had a severe hypotensive episode after chemotherapy before requiring hospitalization. He subsequently tolerated treatment but at lower doses. Based on this, I suggested strongly that we switch his treatment plan to carboplatin/albumin bound-paclitaxel. I reviewed risks, benefits, side effects with the patient. I cancelled old orders, wrote new orders. Reviewed the new schedule on days 1, 8, 15. Previously Albert needed G-CSF support and will build this into the current orders with filgrastim. His daughter asks if he can have this done at home. We will work on that, perhaps one of the biosimilars could be used. REVIEW OF SYSTEMS: CONSTITUTIONAL: No fever, chills, sweats, fatigue; some decreased appetite lately and subjected weight loss. HEENT: No oral discomfort or mouth or lip ulcers. Hearing normal in both ears. RESPIRATORY: Denies cough, hemoptysis, pleurisy; slowly progressive increasing exertional dyspnea. CARDIOVASCULAR: Denies chest pain, palpitations. MUSCULOSKELETAL: Denies skeletal pain, joint swelling, pain, or erythema. GASTROINTESTINAL: No nausea, vomiting, constipation, diarrhea, dysphagia, bleeding, or anorexia. SKIN: Denies rash, ecchymosis, petechiae, jaundice. NEUROLOGICAL: No headache, visual difficulty, motor weakness, sensory deficits. No paresthesias. EXTREMITIES: No extremity edema. VITAL SIGNS: Weight 89 kg, down 2 kg. Temperature 97.7, blood pressure 115/82, heart rate 92, respiratory rate 18, O2 sat 95%. Labs are being drawn during this dictation. IMPRESSION: Metastatic recurrence of high-risk stage III squamous cell carcinoma in a 69-year-old man with significant other medical problems including recently repaired large abdominal aortic aneurysm, non muscle invasive bladder carcinoma status post TURBT pending cystoscopy in April, refused BCG. Anorexia and weight loss with exertional dyspnea associated with progressive cancer. Known left adrenal [facility]; we await new scans but possibly this is the site of disease progression in addition to chest. ECOG performance status 1. PLAN: 1. Begin carboplatin/nab-paclitaxel today. 2. Plan G-CSF support on days 16, 17, and 18 with filgrastim 480 or biosimilar. 3. CBC each treatment day, CBC, stat CMP each day 1, clinical exam on each day 1. 4. A second attempt will be made to obtain the patient imaging report from the [facility] where he was most recently treated. 5. Consider addition of atezolizumab or pembrolizumab to combination carboplatin/Abraxane. There is not a clinical trial demonstrating this specific combination with atezolizumab; there is evidence for atezolizumab plus [place] doublet improved efficacy in metastatic lung cancer irrespective of PD-L1 status which is the more applicable datum in this patient's case. TIME STATEMENT: 30 minutes [id number] with the patient more than 50% involving counseling regarding changing the chemotherapy from Taxol to Abraxane describing the rationale, answering the patient and his daughter's questions, reviewing the new schedule, obtained written informed consent, rewriting orders. Electronically Signed by Laura Ayala MD 04/05/2019 06:44 P DD: Laura Ayala MD 04/04/2019 09:06 A DT: ector 04/04/2019 10:42 A CC:
--- NOTE | 2019-04-04 11:41 | ONC.PHACK ---
CHEMO ADMIN CHECKLIST Order Contains Pt ID: Name, Order on Chemo Order Form?: Yes Order Form Includes ALL: Correct Tx Day, Correct Date, Correct Cycle Number Pt ID on Order form Matches: Pt ID on PHA Label Med on Chemo OrderForm Matches: PHA Label, Med Used for Preparation [facility] Apr 04, 2019 11:41
[2019-04-12 08:26] LABS: BASO % 0.2 % (0.0-1.0); EOS # 0.1 10^3/uL (0.0-0.5); EOS % 1.9 % (0.0-3.0); HEMATOCRIT 29.2 % (42.0-52.0); HEMOGLOBIN 9.5 g/dl (13.5-17.5); LYMPH # 0.8 10^3/uL (1.5-5.0); LYMPH % 14.9 % (24.0-44.0); MEAN CORPUSCULAR HEMOGLOBIN 30.3 pg (27.0-33.0); MEAN CORPUSCULAR HGB CONC 32.5 g/dl (32.0-36.5); MONO # 0.3 10^3/uL (0.0-0.8); MONO % 5.4 % (0.0-5.0); NEUTROPHILS % 76.8 % (36.0-66.0); PLATELET COUNT, AUTOMATED 220 10^3/uL (150-450); RED BLOOD COUNT 3.14 10^6/uL (4.30-6.10); WHITE BLOOD COUNT 5.2 10^3/uL (4.0-10.0)
[2019-04-12 08:33] VITALS: BP 84/56
[2019-04-12 10:50] VITALS: BP 91/64
--- NOTE | 2019-04-12 18:39 | ONC.PHACK ---
CHEMO ADMIN CHECKLIST Order Contains Pt ID: Name, Order on Chemo Order Form?: Yes Order Form Includes ALL: Correct Tx Day, Correct Date, Correct Cycle Number Pt ID on Order form Matches: Pt ID on PHA Label Med on Chemo OrderForm Matches: PHA Label, Med Used for Preparation [facility] Apr 12, 2019 18:39
[2019-04-18 13:10] LABS: BASO % 0.3 % (0.0-1.0); EOS # 0.1 10^3/uL (0.0-0.5); EOS % 4.1 % (0.0-3.0); HEMATOCRIT 28.6 % (42.0-52.0); LYMPH # 0.7 10^3/uL (1.5-5.0); LYMPH % 21.5 % (24.0-44.0); MEAN CORPUSCULAR HEMOGLOBIN 29.7 pg (27.0-33.0); MEAN CORPUSCULAR HGB CONC 31.5 g/dl (32.0-36.5); MEAN CORPUSCULAR VOLUME 94.4 fl (80.0-96.0); MONO # 0.5 10^3/uL (0.0-0.8); MONO % 13.9 % (0.0-5.0); NEUTROPHILS % 59.6 % (36.0-66.0); PLATELET COUNT, AUTOMATED 205 10^3/uL (150-450); RED BLOOD COUNT 3.03 10^6/uL (4.30-6.10); WHITE BLOOD COUNT 3.4 10^3/uL (4.0-10.0)
[2019-04-18 13:15] VITALS: BP 91/64
[2019-04-18 13:37] LABS: ALBUMIN 3.1 GM/DL (3.2-5.2); ALT/SGPT 28 U/L (12-78); BILIRUBIN,TOTAL 0.3 MG/DL (0.2-1.0); BLOOD UREA NITROGEN 20 MG/DL (7-18); CALCIUM LEVEL 9.8 MG/DL (8.8-10.2); CARBON DIOXIDE LEVEL 28 MEQ/L (21-32); CHLORIDE LEVEL 104 MEQ/L (98-107); CREATININE FOR GFR 1.26 MG/DL (0.70-1.30); GLOMERULAR FILTRATION RATE > 60.0 (>42); GLUCOSE, FASTING 115 MG/DL (70-100); POTASSIUM SERUM 3.6 MEQ/L (3.5-5.1); SODIUM LEVEL 140 MEQ/L (136-145); TOTAL PROTEIN 7.8 GM/DL (6.4-8.2)
--- NOTE | 2019-04-18 14:42 | ONC.PHACK ---
CHEMO ADMIN CHECKLIST Order Contains Pt ID: Name, Order on Chemo Order Form?: Yes Order Form Includes ALL: Correct Tx Day, Correct Date, Correct Cycle Number Pt ID on Order form Matches: Pt ID on PHA Label Med on Chemo OrderForm Matches: PHA Label, Med Used for Preparation [facility] Apr 18, 2019 14:42
--- NOTE | 2019-04-19 10:44 | MEDONC ---
MEDICAL ONCOLOGY FOLLOWUP/TREATMENT VISIT DATE OF SERVICE: 04/18/2019 DIAGNOSIS: 1. Intrathoracic metastatic recurrence and possible liver recurrence of stage IIIB, T3N2M0 squamous cell carcinoma of left lung diagnosed June 2018 treated with CCRT, weekly carboplatin/Taxol completed August 2018. Extended delay in medical oncology followup, underwent AAA repair and in the interval developed new lung recurrence and possible liver recurrence. June 2018 paraesophageal lymph node KRAS negative, ALK, EGFR negative, PD-L1 1%. 2. 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 Next cystoscopy April 2019, declined BCG. CURRENT THERAPY: Albert began carboplatin/nab-paclitaxel 04/04/2019. On the he was here for day 8 treatment but wound up going to the emergency room because of tachycardia and hypotension. There he was diagnosed with atrial fibrillation with RVR. He contacted his thermite welder and today Albert is preoccupied with the complaint that his thermite welder said the emergency room doctor should have treated him differently than he did. Most of Albert's medical care is via the [facility]. Today's heart rate is again up. He denies any lightheadedness. He fell 8 days ago he reports, and is back and knee hurt quite a bad. He denies head trauma. PHYSICAL EXAMINATION: Weight 87.2 kg, stable. Temperature 98.3, blood pressure 91/64, heart rate 122, respiratory rate 16, O2 sat 100%. Heart rate measured apically and peripherally by MD 100. RESPIRATORY: Mostly clear breath sounds throughout the lung. No audible wheezes. CARDIAC: S1-S2 regular rate and rhythm. No murmur. No gallop. No ectopy. ABDOMEN: Soft, nontender, nondistended, no hepatosplenomegaly or mass. EXTREMITIES: Tender right lateral lower femur/knee area. No medial tenderness. No ecchymoses. Left knee without tenderness. No edema. No asymmetry. MUSCULOSKELETAL: No vertebral tenderness to percussion along the spinal column. But on deep palpation in the right and left paraspinal area in the upper sacral area the patient has some tenderness without ecchymosis. LABS: WBC 3.4, hemoglobin 9, hematocrit 28.6, platelets 205, MCV 94, ANC 200,000. Electrolytes normal. GFR normal. Liver function normal. Albumin 3.1. IMPRESSION: 1. Recurrent PD-L1 1% squamous cell carcinoma of lung involving intrathoracic and possible liver recurrence now on palliative carboplatin/nab-paclitaxel as salvage treatment with possible plan to add immunotherapy depending on tolerance of cycle one. 2. 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 The patient declined BCG. 3. Recent traumatic fall with right knee tenderness and low back tenderness. PLAN: 1. The patient was quite argumentative today about starting his chemotherapy, absolutely insists he wants to continue with it and asks for hydration. This is not unreasonable. Albert is dealing with some low appetite. He also was somewhat less mobile and dependent on family members to get around.. Will give him a liter of fluid to be followed by delayed day 8 nab-paclitaxel. 2. Plain x-rays of right knee and lumbar spine. 3. One week return for day 15 cycle one with office visit, CBC, stat CMP. TIME STATEMENT: 30 minutes [id number] with the patient more than 50% in discussing management of his tachycardia, salvage chemotherapy, answering the patient's questions to his apparent satisfaction. ADDENDUM: We will do our utmost to reengage our nurse navigator with Albert to help coordinate his care. This has been an ongoing issue about which we spent quite a bit of time discussing today. Almost all of his medical care is through the [place] for which there is no direct communication for us. I will continue to try to send copies to his doctors but easy communication is virtually impossible given the voice mail tree at [place] and Albert's inability to remember the names of his doctors and the multitude of doctors he sees. Will continue to try to help him as best we can. Electronically Signed by Laura Ayala MD 04/19/2019 12:49 P DD: Laura Ayala MD 04/18/2019 05:59 P DT: slick 04/19/2019 08:08 A CC: [facility]
[2019-04-25 09:20] VITALS: BP 90/56
--- NOTE | 2019-04-25 10:37 | ONC.PHACK ---
CHEMO ADMIN CHECKLIST Order Contains Pt ID: Name, Order on Chemo Order Form?: Yes Order Form Includes ALL: Correct Tx Day, Correct Date, Correct Cycle Number Pt ID on Order form Matches: Pt ID on PHA Label Med on Chemo OrderForm Matches: PHA Label, Med Used for Preparation [facility] Apr 25, 2019 10:37
--- NOTE | 2019-04-25 11:07 | ONC.PHACK ---
CHEMO ADMIN CHECKLIST Order Contains Pt ID: Name, Order on Chemo Order Form?: Yes Order Form Includes ALL: Correct Tx Day, Correct Date, Correct Cycle Number Pt ID on Order form Matches: Pt ID on PHA Label Med on Chemo OrderForm Matches: PHA Label, Med Used for Preparation [facility] Apr 25, 2019 11:07
--- NOTE | 2019-04-29 09:27 | MEDONC ---
DATE: 04/25/2019 REASON FOR FOLLOWUP: Recurrent squamous cell carcinoma of the lung. HISTORY OF PRESENT ILLNESS: 1. 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 Currently he is on weekly CarboTaxol. The patient's chemotherapy was interrupted because of abdominal aortic aneurysm (AAA) repair. He was seen yesterday in the ER because of possible blood tinged sputum. Laboratory work was done and was not significant. Also, a CT scan of the chest was done which showed no evidence of pulmonary embolism (PE), the same previously noted CT scan findings. 2. 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 urology. Next cystoscopy was April 2019, the patient declined BCG adjuvant treatment. CURRENT TREATMENT: Mr. Jean-Baptiste is currently on weekly carboplatin, nab-paclitaxel. He has no major complaints from the treatment with the exception of the blood tinged sputum, which he had to go to the emergency room yesterday. PHYSICAL EXAMINATION: Normal vitals. Chest occasional wheezes. Heart exam revealed normal S1 and S2 with no murmur. Abdomen showed no tenderness or rigidity. No organomegaly. Labs which were done yesterday showed a white count of 3.2, hemoglobin of 8.5 and platelet count of 191. Normal serum chemistry. The CT scan of the chest showed no evidence of pulmonary embolism. Transthoracic aortic aneurysm 5.2 cm, no evidence of dissection. Metastatic pulmonary nodules and bulky metastatic mediastinal and hilar lymphadenopathy again seen, unchanged from March 22, 2019. Small left adrenal mass stable. Low density lesion in the liver compatible with cyst. ASSESSMENT/PLAN: We are going to go ahead with the dose of carboplatin/nab-paclitaxel. He will be seen next week with another CBC and CMP. Electronically Signed by Riccardo Child MD 04/30/2019 11:52 A DD: Riccardo Child MD 04/25/2019 10:02 A DT: slick 04/29/2019 09:07 A CC:
[2019-05-09 09:07] VITALS: BP 105/71
[2019-05-09 09:12] LABS: BASO % 0.4 % (0.0-1.0); EOS # 0.1 10^3/uL (0.0-0.5); HEMATOCRIT 29.1 % (42.0-52.0); HEMOGLOBIN 9.1 g/dl (13.5-17.5); LYMPH # 0.8 10^3/uL (1.5-5.0); LYMPH % 9.4 % (24.0-44.0); MEAN CORPUSCULAR HEMOGLOBIN 30.3 pg (27.0-33.0); MEAN CORPUSCULAR HGB CONC 31.3 g/dl (32.0-36.5); MONO # 0.7 10^3/uL (0.0-0.8); MONO % 8.1 % (0.0-5.0); NEUTROPHILS # 6.5 10^3/uL (1.5-8.5); NEUTROPHILS % 79.4 % (36.0-66.0); PLATELET COUNT, AUTOMATED 279 10^3/uL (150-450); WHITE BLOOD COUNT 8.2 10^3/uL (4.0-10.0)
[2019-05-09 09:48] LABS: ALBUMIN 2.9 GM/DL (3.2-5.2); ALT/SGPT 23 U/L (12-78); BILIRUBIN,TOTAL 0.4 MG/DL (0.2-1.0); BLOOD UREA NITROGEN 12 MG/DL (7-18); CALCIUM LEVEL 8.9 MG/DL (8.8-10.2); CARBON DIOXIDE LEVEL 27 MEQ/L (21-32); CHLORIDE LEVEL 110 MEQ/L (98-107); CREATININE FOR GFR 1.12 MG/DL (0.70-1.30); GLOMERULAR FILTRATION RATE > 60.0 (>42); GLUCOSE, FASTING 127 MG/DL (70-100); POTASSIUM SERUM 4.1 MEQ/L (3.5-5.1); SODIUM LEVEL 142 MEQ/L (136-145); TOTAL PROTEIN 6.9 GM/DL (6.4-8.2)
--- NOTE | 2019-05-09 11:28 | ONC.PHACK ---
CHEMO ADMIN CHECKLIST Order Contains Pt ID: Name, Order on Chemo Order Form?: Yes Order Form Includes ALL: Correct Tx Day, Correct Date, Correct Cycle Number Pt ID on Order form Matches: Pt ID on PHA Label Med on Chemo OrderForm Matches: PHA Label, Med Used for Preparation [facility] May 09, 2019 11:28
--- NOTE | 2019-05-10 10:32 | MEDONC ---
DATE OF SERVICE: 05/09/2019 REASON FOR FOLLOWUP: Recurrent squamous cell carcinoma of the lung on chemotherapy. HISTORY OF PRESENT ILLNESS: The patient has intrathoracic metastatic recurrence and possible liver recurrence of [id number] squamous cell carcinoma of the left lung diagnosed in June 2018. He was initially treated by combined chemotherapy and radiation therapy. Currently he is on weekly Carbo taxol. The patient's chemotherapy was interrupted because of abdominal aneurysm repair. 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 CURRENT TREATMENT: He is weekly carboplatin and weekly taxol. He has no major complaints from the treatment. Patient said that he is doing well. PHYSICAL EXAMINATION: Vital signs are stable. Chest examination showed no wheezes. There are basal crackles. Heart examination S1, S2 normal. No gallop. Abdomen is soft and nontender. No organomegaly. ASSESSMENT AND PLAN: Recurrent squamous cell carcinoma of the lung. We will continue with carbo and taxol every week until he can no longer tolerate chemotherapy or toxicity. Will also stop chemotherapy if there is disease progression. We will see him back in 3 weeks. Electronically Signed by Padmini Ponce MD 05/10/2019 05:45 P DD: Padmini Ponce MD 05/09/2019 05:31 P DT: melissa 05/10/2019 10:05 A CC:
[2019-05-16 09:00] VITALS: BP 101/71
[2019-05-16 09:26] LABS: BASO % 0.7 % (0.0-1.0); EOS % 1.1 % (0.0-3.0); HEMATOCRIT 28.2 % (42.0-52.0); HEMOGLOBIN 8.9 g/dl (13.5-17.5); LYMPH # 0.7 10^3/uL (1.5-5.0); LYMPH % 22.8 % (24.0-44.0); MEAN CORPUSCULAR HEMOGLOBIN 30.1 pg (27.0-33.0); MEAN CORPUSCULAR HGB CONC 31.6 g/dl (32.0-36.5); MEAN CORPUSCULAR VOLUME 95.3 fl (80.0-96.0); MONO # 0.1 10^3/uL (0.0-0.8); MONO % 3.5 % (0.0-5.0); NEUTROPHILS % 69.4 % (36.0-66.0); PLATELET COUNT, AUTOMATED 229 10^3/uL (150-450); RED BLOOD COUNT 2.96 10^6/uL (4.30-6.10); WHITE BLOOD COUNT 2.9 10^3/uL (4.0-10.0)
[2019-05-16 09:56] LABS: ALBUMIN 3.3 GM/DL (3.2-5.2); BILIRUBIN,TOTAL 0.3 MG/DL (0.2-1.0); CALCIUM LEVEL 8.9 MG/DL (8.8-10.2); CREATININE FOR GFR 1.27 MG/DL (0.70-1.30); GLOMERULAR FILTRATION RATE 59.7 (>42); POTASSIUM SERUM 4.2 MEQ/L (3.5-5.1); TOTAL PROTEIN 7.2 GM/DL (6.4-8.2)
--- NOTE | 2019-05-16 10:12 | ONC.PHACK ---
CHEMO ADMIN CHECKLIST Order Contains Pt ID: Name, Order on Chemo Order Form?: Yes Order Form Includes ALL: Correct Tx Day, Correct Date, Correct Cycle Number Pt ID on Order form Matches: Pt ID on PHA Label Med on Chemo OrderForm Matches: PHA Label, Med Used for Preparation [facility] May 16, 2019 10:12
[2019-05-23 09:10] VITALS: BP 82/52
[2019-05-23 09:16] LABS: EOS % 2.8 % (0.0-3.0); HEMATOCRIT 26.3 % (42.0-52.0); HEMOGLOBIN 8.5 g/dl (13.5-17.5); LYMPH # 0.5 10^3/uL (1.5-5.0); LYMPH % 35.4 % (24.0-44.0); MEAN CORPUSCULAR HEMOGLOBIN 30.5 pg (27.0-33.0); MEAN CORPUSCULAR HGB CONC 32.3 g/dl (32.0-36.5); MEAN CORPUSCULAR VOLUME 94.3 fl (80.0-96.0); MONO # 0.4 10^3/uL (0.0-0.8); MONO % 24.3 % (0.0-5.0); NEUTROPHILS % 36.1 % (36.0-66.0); PLATELET COUNT, AUTOMATED 154 10^3/uL (150-450); RED BLOOD COUNT 2.79 10^6/uL (4.30-6.10)
[2019-05-23 09:24] LABS: NEUTROPHILS # 0.5 10^3/uL (1.5-8.5); WHITE BLOOD COUNT 1.4 10^3/uL (4.0-10.0)
[2019-05-23 09:41] LABS: ALBUMIN 3.1 GM/DL (3.2-5.2); ALT/SGPT 39 U/L (12-78); BILIRUBIN,TOTAL 0.5 MG/DL (0.2-1.0); BLOOD UREA NITROGEN 16 MG/DL (7-18); CALCIUM LEVEL 8.3 MG/DL (8.8-10.2); CARBON DIOXIDE LEVEL 28 MEQ/L (21-32); CHLORIDE LEVEL 106 MEQ/L (98-107); CREATININE FOR GFR 1.23 MG/DL (0.70-1.30); GLOMERULAR FILTRATION RATE > 60.0 (>42); GLUCOSE, FASTING 138 MG/DL (70-100); POTASSIUM SERUM 3.4 MEQ/L (3.5-5.1); SODIUM LEVEL 139 MEQ/L (136-145)
[2019-05-23 11:40] VITALS: BP 123/75
[2019-06-06 09:32] LABS: BASO % 0.3 % (0.0-1.0); EOS # 0.1 10^3/uL (0.0-0.5); EOS % 2.2 % (0.0-3.0); HEMATOCRIT 28.9 % (42.0-52.0); HEMOGLOBIN 8.7 g/dl (13.5-17.5); LYMPH % 16.4 % (24.0-44.0); MEAN CORPUSCULAR HEMOGLOBIN 29.5 pg (27.0-33.0); MEAN CORPUSCULAR HGB CONC 30.1 g/dl (32.0-36.5); MONO # 0.5 10^3/uL (0.0-0.8); NEUTROPHILS # 4.6 10^3/uL (1.5-8.5); NEUTROPHILS % 72.3 % (36.0-66.0); PLATELET COUNT, AUTOMATED 317 10^3/uL (150-450); RED BLOOD COUNT 2.95 10^6/uL (4.30-6.10); WHITE BLOOD COUNT 6.4 10^3/uL (4.0-10.0)
[2019-06-06 09:46] VITALS: BP 122/87
[2019-06-06 09:56] LABS: ALBUMIN 2.7 GM/DL (3.2-5.2); ALT/SGPT 13 U/L (12-78); BILIRUBIN,TOTAL 0.3 MG/DL (0.2-1.0); BLOOD UREA NITROGEN 9 MG/DL (7-18); CALCIUM LEVEL 9.3 MG/DL (8.8-10.2); CARBON DIOXIDE LEVEL 26 MEQ/L (21-32); CHLORIDE LEVEL 108 MEQ/L (98-107); CREATININE FOR GFR 1.15 MG/DL (0.70-1.30); GLOMERULAR FILTRATION RATE > 60.0 (>42); GLUCOSE, FASTING 109 MG/DL (70-100); POTASSIUM SERUM 3.2 MEQ/L (3.5-5.1); SODIUM LEVEL 142 MEQ/L (136-145); TOTAL PROTEIN 7.3 GM/DL (6.4-8.2)
--- NOTE | 2019-06-08 07:59 | MEDONC ---
MEDICAL ONCOLOGY FOLLOWUP/TREATMENT VISIT: DATE OF SERVICE: 06/06/2019 DIAGNOSES: 1. Metastatic recurrent squamous cell carcinoma of lung involving bilateral neck nodes, mediastinum and possibly liver. Original diagnosis of stage III B T3 N2 squamous cell carcinoma of lung in June 2018 treated with C [employer] DEVELOPER. Recurrence of occurring in March 2019 following extended hiatus from oncology care due to need for AAA repair. Currently, on palliative weekly carboplatin/nab-paclitaxel with potential plan to add immunotherapy. 2. Non- muscle invasive transitional cell carcinoma of bladder status post TURBT. Followed at [facility] urology. CURRENT THERAPY: Carboplatin/nab-paclitaxel with nab-paclitaxel days 1,8,15, carboplatin AUC 6 on day one all on a 21-day cycle. Plan is for four cycles. Day 1, cycle one 04/04/2019. Evidence of major partial response on current restaging. Today will potentially be cycle 2 day 15 versus day 1 cycle three. OTHER MEDICAL PROBLEMS: 1. Status post recent AAA repair. 2. Unexplained new shortness of breath. INTERVAL HISTORY: Albert is here after several missed treatments. He complains of new shortness of breath. He has some significant anemia, hemoglobin 8.7, hematocrit 29. He has difficulty getting here because he is dependent for a ride from [facility]. We talked about obtaining imaging immediately to sort out whether he has got a pulmonary embolism; he is not anticoagulated. His neck is visibly smaller and likely he is having good response to treatment, thus pulmonary embolism and/or infection climb higher on the differential diagnosis. He also is mildly hypokalemic. He agrees to KCl repletion today but instead of treatment will go ahead with a CT. Albert has limitations on availability of his ride. He is not able to do both the CT angio today and receive treatment. LIMITED PHYSICAL EXAM: Weight 82 kg, temperature 97.7, blood pressure 122/87, heart rate 98, respiratory 18, O2 sat 98%. Patient is a robust appearing gentleman. Respiratory: Clear lungs throughout the lung gonzalez, though distant breath sounds clear. No wheezes, rales, rhonchi. No stridor. Cardiac: S1, S2, occasional ectopy. Abdomen: Soft, nontender, nondistended. No hepatosplenomegaly or mass. Extremities: No edema. Lymph nodes: No palpable submandibular, cervical or supraclavicular or axillary adenopathy. LABS: WBC 6.4, hemoglobin 8.7, hematocrit 29, platelets 317, MCV 98. Potassium 3.2, chloride 108. Remainder of electrolytes normal. Renal function normal. Liver function normal albumin 2.7. IMPRESSION: Metastatic recurrent squamous cell carcinoma of lung involving cervical mediastinal lymphadenopathy, possible liver metastases in a patient with multiple medical problems, severe peripheral vascular disease status post AAA repair and with superficial bladder carcinoma status post 1-1/2 cycles of carboplatin/nab-paclitaxel clinically with apparent response but new shortness of breath. PLAN: 1. Hold treatment today. 2. CT angio of the chest with abdomen and pelvis imaging as well as restaging and rule out PE and/or pneumonia. 3. 10 mEq KCl IV today. 4. Return to clinic for day 1 cycle three chemotherapy next week. Patient requests only as his only days he has transportation. 5. Following the visit CT angio returned showing no pulmonary embolism, evidence of response to chemotherapy, with significant improvement in pulmonary metastatic disease near 50% reduction in size of several foci, resolved left supraclavicular adenopathy, much decreased paratracheal adenopathy. No evidence of pneumonia. Abdomen and pelvis with decrease in size of the left adrenal nodule. No other suspicious sites and neck CT showing resolution of level IV lymphadenopathy and no other cervical lymphadenopathy. ADDENDUM: 06/07/2019 at 06:[address] neck imaging report, it notes "incompletely evaluated focus of enhancement within the right frontal lobe without appreciated edema" and recommends gadolinium enhanced brain MRI in order to rule out metastases. I will contact Albert about this results and recommend brain MRI and/or head CT with contrast. Time Statement: 15 minutes [id number] with the patient. More than 50% involved in reviewing his symptoms, discussing treatment schedule workup with CT angio. I called him later to review the results of the CT of the chest and neck excluding the brain detail noted above. Electronically Signed by Laura Ayala MD 06/11/2019 07:49 A DD: Laura Ayala MD 06/07/2019 06:46 P DT: [email or web address] 06/08/2019 07:44 A CC: MD Guillermo Schmid DO Debra Vincent, MD
[2019-06-13 09:00] VITALS: BP 117/75
[2019-06-13 09:07] LABS: BASO % 0.4 % (0.0-1.0); EOS # 0.4 10^3/uL (0.0-0.5); EOS % 5.4 % (0.0-3.0); HEMATOCRIT 30.7 % (42.0-52.0); HEMOGLOBIN 9.6 g/dl (13.5-17.5); LYMPH # 1.1 10^3/uL (1.5-5.0); LYMPH % 15.6 % (24.0-44.0); MEAN CORPUSCULAR HEMOGLOBIN 30.2 pg (27.0-33.0); MEAN CORPUSCULAR HGB CONC 31.3 g/dl (32.0-36.5); MEAN CORPUSCULAR VOLUME 96.5 fl (80.0-96.0); MONO # 0.6 10^3/uL (0.0-0.8); MONO % 8.9 % (0.0-5.0); NEUTROPHILS # 4.8 10^3/uL (1.5-8.5); NEUTROPHILS % 69.1 % (36.0-66.0); PLATELET COUNT, AUTOMATED 390 10^3/uL (150-450); RED BLOOD COUNT 3.18 10^6/uL (4.30-6.10)
[2019-06-13 09:31] LABS: ALT/SGPT 17 U/L (12-78); BILIRUBIN,TOTAL 0.3 MG/DL (0.2-1.0); BLOOD UREA NITROGEN 8 MG/DL (7-18); CALCIUM LEVEL 8.8 MG/DL (8.8-10.2); CARBON DIOXIDE LEVEL 26 MEQ/L (21-32); CHLORIDE LEVEL 107 MEQ/L (98-107); CREATININE FOR GFR 1.07 MG/DL (0.70-1.30); GLOMERULAR FILTRATION RATE > 60.0 (>42); GLUCOSE, FASTING 110 MG/DL (70-100); POTASSIUM SERUM 3.7 MEQ/L (3.5-5.1); SODIUM LEVEL 143 MEQ/L (136-145)
--- NOTE | 2019-06-13 09:58 | ONC.PHACK ---
CHEMO ADMIN CHECKLIST Order Contains Pt ID: Name, Order on Chemo Order Form?: Yes Order Form Includes ALL: Correct Tx Day, Correct Date, Correct Cycle Number Pt ID on Order form Matches: Pt ID on PHA Label Med on Chemo OrderForm Matches: PHA Label, Med Used for Preparation [facility] Jun 13, 2019 09:57
[2019-06-21 08:56] VITALS: BP 91/65
[2019-06-21 09:05] LABS: EOS # 0.1 10^3/uL (0.0-0.5); EOS % 3.4 % (0.0-3.0); HEMATOCRIT 29.2 % (42.0-52.0); HEMOGLOBIN 8.9 g/dl (13.5-17.5); LYMPH # 0.6 10^3/uL (1.5-5.0); LYMPH % 23.2 % (24.0-44.0); MEAN CORPUSCULAR HEMOGLOBIN 29.4 pg (27.0-33.0); MEAN CORPUSCULAR HGB CONC 30.5 g/dl (32.0-36.5); MEAN CORPUSCULAR VOLUME 96.4 fl (80.0-96.0); MONO # 0.1 10^3/uL (0.0-0.8); MONO % 5.2 % (0.0-5.0); NEUTROPHILS # 1.8 10^3/uL (1.5-8.5); NEUTROPHILS % 67.1 % (36.0-66.0); PLATELET COUNT, AUTOMATED 163 10^3/uL (150-450); RED BLOOD COUNT 3.03 10^6/uL (4.30-6.10); WHITE BLOOD COUNT 2.7 10^3/uL (4.0-10.0)
[2019-06-21 09:15] LABS: ALBUMIN 3.2 GM/DL (3.2-5.2); ALT/SGPT 26 U/L (12-78); BILIRUBIN,TOTAL 0.4 MG/DL (0.2-1.0); BLOOD UREA NITROGEN 13 MG/DL (7-18); CALCIUM LEVEL 8.8 MG/DL (8.8-10.2); CARBON DIOXIDE LEVEL 26 MEQ/L (21-32); CHLORIDE LEVEL 107 MEQ/L (98-107); CREATININE FOR GFR 1.01 MG/DL (0.70-1.30); GLOMERULAR FILTRATION RATE > 60.0 (>42); GLUCOSE, FASTING 118 MG/DL (70-100); POTASSIUM SERUM 3.7 MEQ/L (3.5-5.1); SODIUM LEVEL 140 MEQ/L (136-145); TOTAL PROTEIN 7.1 GM/DL (6.4-8.2)
--- NOTE | 2019-06-21 11:50 | ONC.PHACK ---
CHEMO ADMIN CHECKLIST Order Contains Pt ID: Name, Order on Chemo Order Form?: Yes Order Form Includes ALL: Correct Tx Day, Correct Date, Correct Cycle Number Pt ID on Order form Matches: Pt ID on PHA Label Med on Chemo OrderForm Matches: PHA Label, Med Used for Preparation [facility] Jun 21, 2019 11:50
--- NOTE | 2019-06-22 09:39 | MEDONC ---
MEDICAL ONCOLOGY FOLLOWUP/TREATMENT VISIT DATE OF SERVICE: 06/21/2019 DIAGNOSIS: 1. 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 2. History of stage IIIB, T3N2M0 squamous cell carcinoma of lung diagnosed June 2018 . 3. 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 Follows in [facility]. TREATMENT HISTORY Concurrent chemoradiation with weekly carboplatin/paclitaxel completed 06/2017 - 08/2017 Declined adjuvant durvalumab 06/2018 paraesophageal node biopsy positive for recurrent carcinoma TURBT 2019, [facility]; declined BCG CURRENT THERAPY: Carboplatin/nab-paclitaxel on a 21-day schedule. Day 1, cycle one, 04/04/2019. Major partial response after two cycles. Pembrolizumab to be added for day 1 as of cycle three. COMORBIDITIES: Severe peripheral vascular disease GOUT AAA repair MOLECULAR/GENOMIC -06/2018 para-esophageal biopsy: ALK/EGFR/KRAS negative; PD-L1 1% SURVEILLANCE: Restaging CT CAP/Neck 06/06/[address] 06/17/19 no evidence of metastases Cystoscopy per [facility] INTERVAL HISTORY: Albert is here accompanied by his daughter. He is feeling good. We reviewed the scans showing decrease in the left adrenal nodule 2 cm down from 2.3 cm, resolution of level 4/supraclavicular lymph nodes, cervical lymphadenopathy, and significant decrease in pulmonary parenchymal metastatic lesions and mediastinal adenopathy. He is very pleased with these results. Head CT in the interval was also negative for intracranial disease. Albert asks if he can receive Neulasta instead of filgrastim. I cautioned about the half-life of Neulasta being 7-8 days. This would mean possible overlap by one or two days of Neulasta with treatment. He would like to avoid the travel and bother of injections here. His nurse who would inject him at home is going to be on vacation in [place]. His daughter and he are okay with the possible risk of overlapping Neulasta on day 7 or 8 with treatment with chemotherapy. I then discussed adding pembrolizumab to his current regimen. This effectively ill not be until day 1, cycle four, but will rewrite the orders today. Finally, to reduce the risk of persistent neutropenia, which he again has today, will decrease carboplatin and Abraxane doses by 20%. He is accepting of all of these interventions. REVIEW OF SYSTEMS: In addition to pertinent positives and negatives above, patient says his appetite is good. He denies fever, chills. He has had a weight loss of 20 pounds in the last 6 months. He is denies difficulty with swallowing, denies new shortness of breath. Denies hemoptysis. Denies urinary or bowel problems other than some mild constipation. He denies new numbness or tingling in his hands or feet. He has occasional dizziness when he gets up. We talked about his a blood pressure medications, which apparently were revised downward on his last primary care visit, based on his weight loss and blood pressure control. Remainder of 12-system review negative. PHYSICAL EXAM: Weight 82 kg, BMI 28, temperature 97.8, blood pressure 91/65, heart rate 102, respiratory 22, O2 sat 100%. The patient is a well-groomed, older gentleman with alopecia. HEENT: No scleral icterus. Oropharynx clear. Respiratory: Distant but clear breath sounds throughout the lung gonzalez. No wheezes or rales. Cardiac: S1, S2, tachycardiac. Abdomen: Soft, nontender. Extremities: No edema. LABS: WBC 2.7, ANC 1800, hemoglobin 8.9, hematocrit 29, platelets 163, MCV 96. Electrolytes normal. Renal function normal. Liver functions normal. IMPRESSION: Early metastatic recurrence of squamous cell carcinoma of lung with bilateral neck, mediastinal lymphadenopathy, pulmonary nodules, question of liver nodules, and adrenal met on first-line palliative treatment with carboplatin/Abraxane. Grade 2-3 neutropenia has caused interruptions of treatment requiring G-CSF. Major partial response on restaging scans. Improvement in performance status now 0. PLAN: 1. Day 8, cycle three today. 2. Return to clinic 1 week for day 15, cycle three. 3. Discontinue filgrastim, begin Neulasta On-body, attached day 15 each cycle. 4. Add pembrolizumab to day 1 as of cycle four. 5. Plan will be to complete four cycles of [place]-based doublet therapy. After that, will continue on maintenance pembrolizumab. 6. 20% dose reduction in nab-paclitaxel and carboplatin as of day 8, cycle three, today. Electronically Signed by Laura Ayala MD 06/24/2019 05:17 P DD: Laura Ayala MD 06/21/2019 03:58 P DT: buck 06/22/2019 09:01 A CC: Guillermo Bhandari DO
[2019-06-27 08:30] VITALS: BP 95/52
[2019-06-27 08:47] LABS: EOS # 0.1 10^3/uL (0.0-0.5); EOS % 4.7 % (0.0-3.0); HEMATOCRIT 26.7 % (42.0-52.0); HEMOGLOBIN 8.3 g/dl (13.5-17.5); LYMPH # 0.6 10^3/uL (1.5-5.0); LYMPH % 33.1 % (24.0-44.0); MEAN CORPUSCULAR HEMOGLOBIN 29.9 pg (27.0-33.0); MEAN CORPUSCULAR HGB CONC 31.1 g/dl (32.0-36.5); MONO # 0.2 10^3/uL (0.0-0.8); MONO % 8.9 % (0.0-5.0); NEUTROPHILS % 52.7 % (36.0-66.0); RED BLOOD COUNT 2.78 10^6/uL (4.30-6.10)
[2019-06-27 09:11] LABS: NEUTROPHILS # 0.9 10^3/uL (1.5-8.5); PLATELET COUNT, AUTOMATED 69 10^3/uL (150-450); WHITE BLOOD COUNT 1.7 10^3/uL (4.0-10.0)
[2019-06-27 09:15] LABS: ALBUMIN 3.2 GM/DL (3.2-5.2); ALT/SGPT 31 U/L (12-78); BILIRUBIN,TOTAL 0.4 MG/DL (0.2-1.0); BLOOD UREA NITROGEN 15 MG/DL (7-18); CALCIUM LEVEL 8.1 MG/DL (8.8-10.2); CARBON DIOXIDE LEVEL 26 MEQ/L (21-32); CHLORIDE LEVEL 109 MEQ/L (98-107); CREATININE FOR GFR 1.14 MG/DL (0.70-1.30); GLOMERULAR FILTRATION RATE > 60.0 (>42); GLUCOSE, FASTING 118 MG/DL (70-100); POTASSIUM SERUM 3.5 MEQ/L (3.5-5.1); SODIUM LEVEL 143 MEQ/L (136-145); TOTAL PROTEIN 6.7 GM/DL (6.4-8.2)
[2019-07-11 09:11] LABS: BASO % 0.3 % (0.0-1.0); EOS # 0.1 10^3/uL (0.0-0.5); EOS % 1.8 % (0.0-3.0); HEMATOCRIT 28.5 % (42.0-52.0); HEMOGLOBIN 8.8 g/dl (13.5-17.5); LYMPH % 13.8 % (24.0-44.0); MEAN CORPUSCULAR HEMOGLOBIN 30.7 pg (27.0-33.0); MEAN CORPUSCULAR HGB CONC 30.9 g/dl (32.0-36.5); MEAN CORPUSCULAR VOLUME 99.3 fl (80.0-96.0); MONO # 0.7 10^3/uL (0.0-0.8); MONO % 9.3 % (0.0-5.0); NEUTROPHILS # 5.5 10^3/uL (1.5-8.5); NEUTROPHILS % 73.7 % (36.0-66.0); PLATELET COUNT, AUTOMATED 275 10^3/uL (150-450); RED BLOOD COUNT 2.87 10^6/uL (4.30-6.10); WHITE BLOOD COUNT 7.4 10^3/uL (4.0-10.0)
[2019-07-11 09:13] VITALS: BP 120/79
[2019-07-11 09:38] LABS: ALT/SGPT 20 U/L (12-78); BILIRUBIN,TOTAL 0.3 MG/DL (0.2-1.0); BLOOD UREA NITROGEN 10 MG/DL (7-18); CALCIUM LEVEL 8.7 MG/DL (8.8-10.2); CARBON DIOXIDE LEVEL 26 MEQ/L (21-32); CHLORIDE LEVEL 110 MEQ/L (98-107); CREATININE FOR GFR 1.04 MG/DL (0.70-1.30); GLOMERULAR FILTRATION RATE > 60.0 (>42); GLUCOSE, FASTING 111 MG/DL (70-100); POTASSIUM SERUM 3.5 MEQ/L (3.5-5.1); SODIUM LEVEL 144 MEQ/L (136-145)
--- NOTE | 2019-07-11 10:02 | ONC.PHACK ---
CHEMO ADMIN CHECKLIST Order Contains Pt ID: Name, Order on Chemo Order Form?: Yes Order Form Includes ALL: Correct Tx Day, Correct Date, Correct Cycle Number Pt ID on Order form Matches: Pt ID on PHA Label Med on Chemo OrderForm Matches: PHA Label, Med Used for Preparation [facility] Jul 11, 2019 10:02
--- NOTE | 2019-07-11 12:24 | ONC.PHACK ---
CHEMO ADMIN CHECKLIST Order Contains Pt ID: Name, Order on Chemo Order Form?: Yes Order Form Includes ALL: Correct Tx Day, Correct Date, Correct Cycle Number Pt ID on Order form Matches: Pt ID on PHA Label Med on Chemo OrderForm Matches: PHA Label, Med Used for Preparation [facility] Jul 11, 2019 12:24
--- NOTE | 2019-07-12 07:23 | MEDONC ---
MEDICAL ONCOLOGY FOLLOWUP / TREATMENT VISIT: DATE OF SERVICE: 07/11/2019 DIAGNOSIS: 1. 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 2. History of stage IIIB, T3N2M0 squamous cell carcinoma of lung diagnosed June 2018 . 3. 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 Follows in [facility]. TREATMENT HISTORY Concurrent chemoradiation with weekly carboplatin/paclitaxel completed 06/2017 - 08/2017 Declined adjuvant durvalumab 06/2018 paraesophageal node biopsy positive for recurrent carcinoma TURBT 2019, [facility]; declined BCG CURRENT THERAPY: Carboplatin/nab-paclitaxel on a 21-day schedule. Day 1, cycle one, 04/04/2019. Major partial response after two cycles. Pembrolizumab to be added for day 1 as of cycle three. COMORBIDITIES: Severe peripheral vascular disease GOUT AAA repair MOLECULAR/GENOMIC -06/2018 para-esophageal biopsy: ALK/EGFR/KRAS negative; PD-L1 1% SURVEILLANCE: Restaging CT CAP/Neck 06/06/[address] 06/17/19 no evidence of metastases Cystoscopy per [facility] INTERVAL HISTORY: Albert is here for cycle four treatment. We are adding pembrolizumab as of today. We had previously discussed risks of autoimmune side effects. I then reviewed with him that will continue after this with pembrolizumab maintenance. As his most recent scans were done mid June showing major [place] there is no current need to restage following cycle four chemo therapy. Albert offers no new complaints. REVIEW OF SYSTEMS: CONSTITUTIONAL: No fever, chills, sweats, fatigue, or weight loss. HEENT: No oral discomfort or mouth or lip ulcers. Hearing normal in both ears. RESPIRATORY: Denies cough, dyspnea, hemoptysis, pleurisy. CARDIOVASCULAR: Denies chest pain, palpitations. MUSCULOSKELETAL: Denies skeletal pain, joint swelling, pain, or erythema. GENITOURINARY: No history of urinary frequency, burning, hematuria, or pain. GASTROINTESTINAL: No nausea, vomiting, constipation, diarrhea, dysphagia, bleeding, or anorexia. SKIN: Denies rash, ecchymosis, petechiae, jaundice. NEUROLOGICAL: No headache, visual difficulty, motor weakness, sensory deficits. No paresthesias. EXTREMITIES: No extremity edema. PHYSICAL EXAM: Weight is 84 kg, BMI 28, temperature 97.8, blood pressure 120/79, heart rate 104, respiratory 20, O2 sat 100% patient is a well groomed normal weight appearing gentleman in no distress. HEENT: No scleral icterus. Oropharynx clear. Respiratory: Clear lungs to auscultation distant but clear. No wheezes or rales. Cardiac: S1-S2, occasional irregularity. Regular underlying rate. Abdomen: Soft, nontender, nondistended, no hepatosplenomegaly or mass. Extremities: No edema. Lymph nodes no submandibular, cervical, supraclavicular or axillary adenopathy bilaterally. Skin: No ecchymoses, petechiae or rash. Musculoskeletal: No vertebral tenderness to percussion. Psych the patient is alert, oriented to person, place and time. Speech is fluent. Affect appropriate. LABS: WBC 7.4, hemoglobin 8.8, hematocrit 28.5, platelets 275, MCV 99. Electrolytes, renal function liver function normal, albumin 3.0, CEA pending. Most recent CEA 2.3 on 06/13/2019. IMPRESSION: Recurrent / metastatic squamous cell carcinoma of lung presenting March 2019 with bilateral neck adenopathy. Pulmonary nodules possible liver nodules now with major NC on carboplatin / nab paclitaxel. Status post three cycles. Today's day one cycle four. We are adding pembrolizumab for this cycle and then will continue with maintenance pembrolizumab thereafter. ECOG performance status zero line below that persistent hoarseness despite resolution of bilateral low cervical lymph nodes. PLAN: 1. Cycle four [place] based doublet chemotherapy today with pembrolizumab added 2. 3-week interval return for day one cycle one maintenance pembrolizumab CBC stat CMP, TSH, free T4 on that day. 3. In the interval Albert will be here for days 8 and 15, carboplatin / nab paclitaxel 4. Anticipate restaging early September barring new symptoms. Electronically Signed by Laura Ayala MD 07/12/2019 07:38 P DD: Laura Ayala MD 07/11/2019 05:03 P DT: melissa 07/12/2019 07:15 A CC: Guillermo Bhandari DO
[2019-07-18] VITALS (9 sets, daily range): BP systolic 95–157; BP diastolic 65–88
[2019-07-18 08:17] LABS: BASO % 0.3 % (0.0-1.0); EOS # 0.1 10^3/uL (0.0-0.5); EOS % 1.9 % (0.0-3.0); HEMATOCRIT 26.1 % (42.0-52.0); HEMOGLOBIN 7.9 g/dl (13.5-17.5); LYMPH # 0.7 10^3/uL (1.5-5.0); LYMPH % 18.6 % (24.0-44.0); MEAN CORPUSCULAR HEMOGLOBIN 29.8 pg (27.0-33.0); MEAN CORPUSCULAR HGB CONC 30.3 g/dl (32.0-36.5); MEAN CORPUSCULAR VOLUME 98.5 fl (80.0-96.0); MONO # 0.2 10^3/uL (0.0-0.8); MONO % 6.7 % (0.0-5.0); NEUTROPHILS # 2.6 10^3/uL (1.5-8.5); NEUTROPHILS % 70.8 % (36.0-66.0); PLATELET COUNT, AUTOMATED 234 10^3/uL (150-450); RED BLOOD COUNT 2.65 10^6/uL (4.30-6.10); WHITE BLOOD COUNT 3.6 10^3/uL (4.0-10.0)
[2019-07-18 08:47] LABS: ALBUMIN 3.1 GM/DL (3.2-5.2); ALT/SGPT 20 U/L (12-78); BILIRUBIN,TOTAL 0.4 MG/DL (0.2-1.0); BLOOD UREA NITROGEN 15 MG/DL (7-18); CALCIUM LEVEL 8.6 MG/DL (8.8-10.2); CARBON DIOXIDE LEVEL 29 MEQ/L (21-32); CHLORIDE LEVEL 106 MEQ/L (98-107); CREATININE FOR GFR 1.04 MG/DL (0.70-1.30); GLOMERULAR FILTRATION RATE > 60.0 (>42); GLUCOSE, FASTING 116 MG/DL (70-100); POTASSIUM SERUM 3.7 MEQ/L (3.5-5.1); SODIUM LEVEL 142 MEQ/L (136-145); TOTAL PROTEIN 7.1 GM/DL (6.4-8.2)
[2019-07-25 08:23] VITALS: BP 94/68
[2019-07-25 08:50] LABS: BASO % 0.4 % (0.0-1.0); EOS # 0.1 10^3/uL (0.0-0.5); EOS % 2.1 % (0.0-3.0); HEMATOCRIT 32.2 % (42.0-52.0); HEMOGLOBIN 10.3 g/dl (13.5-17.5); LYMPH # 0.6 10^3/uL (1.5-5.0); LYMPH % 22.3 % (24.0-44.0); MEAN CORPUSCULAR HEMOGLOBIN 30.2 pg (27.0-33.0); MEAN CORPUSCULAR VOLUME 94.4 fl (80.0-96.0); MONO # 0.4 10^3/uL (0.0-0.8); MONO % 12.7 % (0.0-5.0); NEUTROPHILS # 1.7 10^3/uL (1.5-8.5); NEUTROPHILS % 61.1 % (36.0-66.0); PLATELET COUNT, AUTOMATED 164 10^3/uL (150-450); RED BLOOD COUNT 3.41 10^6/uL (4.30-6.10); WHITE BLOOD COUNT 2.8 10^3/uL (4.0-10.0)
[2019-07-25 09:18] LABS: ALBUMIN 3.3 GM/DL (3.2-5.2); ALT/SGPT 25 U/L (12-78); BILIRUBIN,TOTAL 0.5 MG/DL (0.2-1.0); BLOOD UREA NITROGEN 20 MG/DL (7-18); CALCIUM LEVEL 7.7 MG/DL (8.8-10.2); CARBON DIOXIDE LEVEL 28 MEQ/L (21-32); CHLORIDE LEVEL 109 MEQ/L (98-107); CREATININE FOR GFR 1.07 MG/DL (0.70-1.30); GLOMERULAR FILTRATION RATE > 60.0 (>42); GLUCOSE, FASTING 110 MG/DL (70-100); SODIUM LEVEL 142 MEQ/L (136-145); TOTAL PROTEIN 6.9 GM/DL (6.4-8.2)
[2019-08-01 08:10] VITALS: BP 112/78
[2019-08-01 08:13] LABS: BASO # 0.1 10^3/uL (0.0-0.2); BASO % 0.6 % (0.0-1.0); EOS # 0.1 10^3/uL (0.0-0.5); EOS % 0.7 % (0.0-3.0); HEMATOCRIT 32.6 % (42.0-52.0); HEMOGLOBIN 10.6 g/dl (13.5-17.5); LYMPH # 1.3 10^3/uL (1.5-5.0); LYMPH % 7.4 % (24.0-44.0); MEAN CORPUSCULAR HEMOGLOBIN 30.7 pg (27.0-33.0); MEAN CORPUSCULAR HGB CONC 32.5 g/dl (32.0-36.5); MEAN CORPUSCULAR VOLUME 94.5 fl (80.0-96.0); MONO % 12.6 % (0.0-5.0); NEUTROPHILS # 12.9 10^3/uL (1.5-8.5); NEUTROPHILS % 75.9 % (36.0-66.0); PLATELET COUNT, AUTOMATED 161 10^3/uL (150-450); RED BLOOD COUNT 3.45 10^6/uL (4.30-6.10)
[2019-08-01 08:15] LABS: MONO # 2.1 10^3/uL (0.0-0.8)
[2019-08-01 08:40] LABS: ALBUMIN 3.3 GM/DL (3.2-5.2); ALT/SGPT 20 U/L (12-78); BILIRUBIN,TOTAL 0.3 MG/DL (0.2-1.0); BLOOD UREA NITROGEN 11 MG/DL (7-18); CARBON DIOXIDE LEVEL 26 MEQ/L (21-32); CHLORIDE LEVEL 109 MEQ/L (98-107); CREATININE FOR GFR 1.25 MG/DL (0.70-1.30); GLOMERULAR FILTRATION RATE > 60.0 (>42); GLUCOSE, FASTING 119 MG/DL (70-100); POTASSIUM SERUM 3.6 MEQ/L (3.5-5.1); SODIUM LEVEL 143 MEQ/L (136-145); TOTAL PROTEIN 7.1 GM/DL (6.4-8.2)
--- NOTE | 2019-08-01 08:55 | ONC.PHACK ---
CHEMO ADMIN CHECKLIST Order Contains Pt ID: Name, Order on Chemo Order Form?: Yes Order Form Includes ALL: Correct Tx Day, Correct Date, Correct Cycle Number Pt ID on Order form Matches: Pt ID on PHA Label Med on Chemo OrderForm Matches: PHA Label, Med Used for Preparation [facility] Aug 01, 2019 08:55
[2019-08-01 09:21] LABS: FREE T4 1.4 NG/DL (0.76-1.46); THYROID STIMULATING HORMONE 1.57 uIU/ML (0.358-3.740)
--- NOTE | 2019-08-02 07:52 | MEDONC ---
MEDICAL ONCOLOGY FOLLOWUP/TREATMENT VISIT DATE OF SERVICE: 08/01/2019 DIAGNOSIS: 1. 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 2. History of stage IIIB, T3N2M0 squamous cell carcinoma of lung diagnosed June 2018 . 3. 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 Follows in [facility]. TREATMENT HISTORY Concurrent chemoradiation with weekly carboplatin/paclitaxel completed 06/2017 - 08/2017 Declined adjuvant durvalumab 06/2018 paraesophageal node biopsy positive for recurrent carcinoma TURBT 2019, [facility]; declined BCG Carboplatin/nab-paclitaxel three cycles 04/04/2019-06/19/2019. Carboplatin/nab-paclitaxel/pembrolizumab one cycle 07/11/2019. CURRENT THERAPY: Carboplatin/nab-paclitaxel on a 21-day schedule. Day 1, cycle one, 04/04/2019. Major partial response after two cycles. Pembrolizumab to be added for day 1 as of cycle three. Albert is here today to begin maintenance pembrolizumab. COMORBIDITIES: Severe peripheral vascular disease GOUT AAA repair MOLECULAR/GENOMIC -06/2018 para-esophageal biopsy: ALK/EGFR/KRAS negative; PD-L1 1% SURVEILLANCE: Restaging CT CAP/Neck 06/06/[address] [place] [address] 06/17/19 no evidence of metastases Cystoscopy per [facility] INTERVAL HISTORY: Albert is doing okay. 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 He reports feeling "better." His breathing is better, his appetite is good though we note he has lost a little weight and I encouraged him to keep the calorie intake going. He denies significant tingling or numbness in his hands or feet, just a little bit. It is not interfering with buttons, zipping, walking or balance. His appetite is okay. He is ready to begin maintenance pembrolizumab. I outlined the typical treatment plan in which he is seen for clinical exam, doctor visit every other treatment, and receives the pembrolizumab on a q. 3-week basis. Labs will be drawn each time. REVIEW OF SYSTEMS: CONSTITUTIONAL: No fever, chills, sweats, fatigue, or weight loss. HEENT: No oral discomfort or mouth or lip ulcers. Hearing normal in both ears. RESPIRATORY: Denies cough, dyspnea, hemoptysis, pleurisy. Hoarseness persistent. Occasional production of phlegm with cough. CARDIOVASCULAR: Denies chest pain, palpitations. MUSCULOSKELETAL: Denies skeletal pain, joint swelling, pain, or erythema. GENITOURINARY: No history of urinary frequency, burning, hematuria, or pain. GASTROINTESTINAL: No nausea, vomiting, constipation, diarrhea, dysphagia, bleeding, or anorexia. SKIN: Denies rash, ecchymosis, petechiae, jaundice. NEUROLOGICAL: No headache, visual difficulty, motor weakness, sensory deficits. Mild tingling that lasts a few days involving hands and feet. EXTREMITIES: No extremity edema. VITAL SIGNS: Weight 82 kg, BMI 28, temperature 97.7, blood pressure 112/78, heart rate 88, respiratory 20, O2 sat 98%. PHYSICAL EXAMINATION: LABORATORY DATA: WBC 17, hemoglobin 10.6, hematocrit 33, platelets 161, MCV 94. Electrolytes unremarkable. Renal function normal. Liver function normal. Alkaline phosphatase 129. TSH 1.5. CEA pending, most recent was 2 on 07/18/2019. IMPRESSION: 69-year-old man with metastatic recurrence of squamous cell carcinoma of lung status post four cycles of doublet chemotherapy with pembrolizumab added as first-line palliative treatment with major clinical response, ECOG performance status 0. Leukocytosis secondary to G-CSF support. Persistent hoarseness. PLAN: 1. Begin maintenance pembrolizumab today. 2. 3-week interval return for cycle two; 6-week interval return for cycle three. 3. CBC, stat CMP, TSH, free T4, CEA each cycle. Electronically Signed by Laura Ayala MD 08/02/2019 01:28 P DD: Laura Ayala MD 08/01/2019 09:56 A DT: elliot 08/02/2019 07:40 A CC: Guillermo Bhandari DO
[2019-08-22 08:00] VITALS: BP 90/63
[2019-08-22 08:45] LABS: ALBUMIN 3.2 GM/DL (3.2-5.2); ALT/SGPT 15 U/L (12-78); BILIRUBIN,TOTAL 0.3 MG/DL (0.2-1.0); BLOOD UREA NITROGEN 15 MG/DL (7-18); CALCIUM LEVEL 9.5 MG/DL (8.8-10.2); CARBON DIOXIDE LEVEL 27 MEQ/L (21-32); CHLORIDE LEVEL 107 MEQ/L (98-107); CREATININE FOR GFR 1.08 MG/DL (0.70-1.30); GLOMERULAR FILTRATION RATE > 60.0 (>42); GLUCOSE, FASTING 116 MG/DL (70-100); POTASSIUM SERUM 3.7 MEQ/L (3.5-5.1); SODIUM LEVEL 140 MEQ/L (136-145); TOTAL PROTEIN 7.4 GM/DL (6.4-8.2)
--- NOTE | 2019-08-22 09:03 | ONC.PHACK ---
CHEMO ADMIN CHECKLIST Order Contains Pt ID: Name, Order on Chemo Order Form?: Yes Order Form Includes ALL: Correct Tx Day, Correct Date, Correct Cycle Number Pt ID on Order form Matches: Pt ID on PHA Label Med on Chemo OrderForm Matches: PHA Label, Med Used for Preparation [facility] Aug 22, 2019 09:03
[2019-08-22 09:58] LABS: FREE T4 1.33 NG/DL (0.76-1.46); THYROID STIMULATING HORMONE 1.3 uIU/ML (0.358-3.740)
[2019-09-12 08:07] VITALS: BP 131/88
[2019-09-12 08:20] LABS: BASO % 0.3 % (0.0-1.0); EOS # 0.7 10^3/uL (0.0-0.5); EOS % 9.3 % (0.0-3.0); HEMATOCRIT 35.3 % (42.0-52.0); HEMOGLOBIN 11.4 g/dl (13.5-17.5); LYMPH # 1.1 10^3/uL (1.5-5.0); MEAN CORPUSCULAR HEMOGLOBIN 31.3 pg (27.0-33.0); MEAN CORPUSCULAR HGB CONC 32.3 g/dl (32.0-36.5); MONO # 0.6 10^3/uL (0.0-0.8); NEUTROPHILS # 5.2 10^3/uL (1.5-8.5); NEUTROPHILS % 67.9 % (36.0-66.0); PLATELET COUNT, AUTOMATED 248 10^3/uL (150-450); RED BLOOD COUNT 3.64 10^6/uL (4.30-6.10); WHITE BLOOD COUNT 7.6 10^3/uL (4.0-10.0)
[2019-09-12 08:41] LABS: ALT/SGPT 18 U/L (12-78); BILIRUBIN,TOTAL 0.5 MG/DL (0.2-1.0); BLOOD UREA NITROGEN 13 MG/DL (7-18); CALCIUM LEVEL 8.6 MG/DL (8.8-10.2); CARBON DIOXIDE LEVEL 29 MEQ/L (21-32); CHLORIDE LEVEL 108 MEQ/L (98-107); CREATININE FOR GFR 1.07 MG/DL (0.70-1.30); GLOMERULAR FILTRATION RATE > 60.0 (>42); GLUCOSE, FASTING 106 MG/DL (70-100); POTASSIUM SERUM 3.9 MEQ/L (3.5-5.1); SODIUM LEVEL 143 MEQ/L (136-145)
[2019-09-12 09:28] LABS: FREE T4 1.18 NG/DL (0.76-1.46); THYROID STIMULATING HORMONE 2.93 uIU/ML (0.358-3.740)
--- NOTE | 2019-09-12 12:04 | ONC.PHACK ---
CHEMO ADMIN CHECKLIST Order Contains Pt ID: Name, Order on Chemo Order Form?: Yes Order Form Includes ALL: Correct Tx Day, Correct Date, Correct Cycle Number Pt ID on Order form Matches: Pt ID on PHA Label Med on Chemo OrderForm Matches: PHA Label, Med Used for Preparation [facility] Sep 12, 2019 12:04
--- NOTE | 2019-09-13 08:34 | MEDONC ---
MEDICAL ONCOLOGY FOLLOWUP/TREATMENT VISIT DATE OF SERVICE: 09/12/2019 DIAGNOSIS: 1. 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 2. History of stage IIIB, T3N2M0 squamous cell carcinoma of lung diagnosed June 2018 . 3. 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 Follows in [facility]. TREATMENT HISTORY Concurrent chemoradiation with weekly carboplatin/paclitaxel completed 06/2017 - 08/2017 Declined adjuvant durvalumab 06/2018 paraesophageal node biopsy positive for recurrent carcinoma TURBT 2019, [facility]; declined BCG Carboplatin/nab-paclitaxel three cycles 04/04/2019-06/19/2019. Carboplatin/nab-paclitaxel/pembrolizumab one cycle 07/11/2019. CURRENT THERAPY: Carboplatin/nab-paclitaxel on a 21-day schedule. Day 1, cycle one, 04/04/2019. Major partial response after two cycles. Pembrolizumab to be added for day 1 as of cycle three. Albert is here today to begin maintenance pembrolizumab. COMORBIDITIES: Severe peripheral vascular disease GOUT AAA repair MOLECULAR/GENOMIC -06/2018 para-esophageal biopsy: ALK/EGFR/KRAS negative; PD-L1 1% SURVEILLANCE: Restaging CT CAP/Neck 06/06/[address] [place] [address] 06/17/19 no evidence of metastases Cystoscopy per [facility] 09/04/2019 CT CAP: Increased opacity left lower lobe versus prior no other changes. INTERVAL HISTORY: Albert is here for cycle three maintenance pembrolizumab. He reports doing very well. He has no new complaints. He denies fevers, chills or new shortness of breath. He will have episodes of treatment related shortness of breath, having had radiation but denies any new respiratory changes. REVIEW OF SYSTEMS: CONSTITUTIONAL: No fever, chills, sweats, fatigue, or weight loss. HEENT: No oral discomfort or mouth or lip ulcers. Hearing normal in both ears. RESPIRATORY: Denies cough, dyspnea, hemoptysis, pleurisy; some exertional dyspnea unchanged and morning cough with clear sputum unchanged. CARDIOVASCULAR: Denies chest pain, palpitations. MUSCULOSKELETAL: Denies skeletal pain, joint swelling, pain, or erythema; the patient notices a twinge of pain occasionally in his left lower mid back. GENITOURINARY: No history of urinary frequency, burning, hematuria, or pain. GASTROINTESTINAL: No nausea, vomiting, constipation, diarrhea, dysphagia, bleeding, or anorexia. SKIN: Denies rash, ecchymosis, petechiae, jaundice. NEUROLOGICAL: No headache, visual difficulty, motor weakness, sensory deficits. No paresthesias. EXTREMITIES: No extremity edema. PHYSICAL EXAMINATION: Weight 84 kg, increased by 3 kg. Temperature 97.1. Blood pressure 131/80. Heart rate 88. Respiratory 18. O2 sat 98%. The patient is a robust appearing well-groomed gentleman in no distress, wearing a facemask. Limited physical exam. Lung Exam: Clear to auscultation throughout the entire lung gonzalez anteriorly and posteriorly save for left base where there is a focus of crackles laterally. LABORATORY DATA: WBC 7.6, hemoglobin 11, hematocrit 35, platelets 248, MCV 97. Electrolytes unremarkable. Renal function normal. Liver function normal. Albumin 3. TSH 2.9. CEA pending. Most recent CEA 3.3 on 08/01/2019, an increase versus 1.90 in early July. 69-year-old man with COPD, peripheral vascular disease, and metastatic recurrence of squamous cell carcinoma of lung on maintenance pembrolizumab clinically well with left lower lobe focus of opacity/consolidation, no respiratory symptoms but some pleuritic pain in that area. ECOG performance status 0/1. Mild exertional dyspnea unchanged. No new cough. PLAN: 1. Proceed with cycle three maintenance pembrolizumab today. 2. Close monitoring of symptoms and signs. If Albert develops new shortness of breath, fever or chills, this needs to be immediately worked up not just in terms of COVID-19 but a simple pneumonia. 3. Empiric antibiotics with azithromycin over the next 5 days. 4. 3 week return for cycle four pembrolizumab with labs; 6 week return for cycle five with labs and office visit. 5. Any new respiratory symptoms need to be carefully worked up with Albert given his susceptibility both to complications of COVID infection, and to pneumonia and respiratory infection due to underlying COPD. We talked this over during the visit today and agreed that avoiding extra visits with extra scans is preferable currently to working up for this finding further with PET. He agreed to let me know if he is having any worsening symptoms. Once COVID has calmed down we can think of the PET as long as he remains clinically well. Electronically Signed by Laura Ayala MD 09/13/2019 05:20 P DD: Laura Ayala MD 09/12/2019 05:05 P DT: ector 09/13/2019 08:14 A CC: Guillermo Bhandari,
[2019-10-03 08:14] VITALS: BP 103/72
[2019-10-03 08:22] LABS: BASO % 0.3 % (0.0-1.0); EOS # 0.3 10^3/uL (0.0-0.5); EOS % 3.8 % (0.0-3.0); HEMATOCRIT 35.7 % (42.0-52.0); HEMOGLOBIN 11.5 g/dl (13.5-17.5); LYMPH # 1.1 10^3/uL (1.5-5.0); LYMPH % 14.1 % (24.0-44.0); MEAN CORPUSCULAR HEMOGLOBIN 31.3 pg (27.0-33.0); MEAN CORPUSCULAR HGB CONC 32.2 g/dl (32.0-36.5); MEAN CORPUSCULAR VOLUME 97.3 fl (80.0-96.0); MONO # 0.6 10^3/uL (0.0-0.8); MONO % 7.4 % (0.0-5.0); NEUTROPHILS # 5.8 10^3/uL (1.5-8.5); NEUTROPHILS % 73.8 % (36.0-66.0); PLATELET COUNT, AUTOMATED 243 10^3/uL (150-450); RED BLOOD COUNT 3.67 10^6/uL (4.30-6.10); WHITE BLOOD COUNT 7.9 10^3/uL (4.0-10.0)
[2019-10-03 08:55] LABS: ALBUMIN 3.1 GM/DL (3.2-5.2); ALT/SGPT 21 U/L (12-78); BILIRUBIN,TOTAL 0.6 MG/DL (0.2-1.0); BLOOD UREA NITROGEN 10 MG/DL (7-18); CALCIUM LEVEL 9.3 MG/DL (8.8-10.2); CARBON DIOXIDE LEVEL 29 MEQ/L (21-32); CHLORIDE LEVEL 105 MEQ/L (98-107); CREATININE FOR GFR 1.03 MG/DL (0.70-1.30); GLOMERULAR FILTRATION RATE > 60.0 (>42); GLUCOSE, FASTING 130 MG/DL (70-100); POTASSIUM SERUM 3.8 MEQ/L (3.5-5.1); SODIUM LEVEL 140 MEQ/L (136-145); TOTAL PROTEIN 7.3 GM/DL (6.4-8.2)
[2019-10-03 10:13] LABS: FREE T4 1.13 NG/DL (0.76-1.46); THYROID STIMULATING HORMONE 1.5 uIU/ML (0.358-3.740)
[2019-10-23 10:37] LABS: BASO % 0.2 % (0.0-1.0); EOS # 0.3 10^3/uL (0.0-0.5); EOS % 3.7 % (0.0-3.0); HEMATOCRIT 36.2 % (42.0-52.0); HEMOGLOBIN 11.6 g/dl (13.5-17.5); LYMPH # 1.5 10^3/uL (1.5-5.0); LYMPH % 16.8 % (24.0-44.0); MEAN CORPUSCULAR HEMOGLOBIN 31.4 pg (27.0-33.0); MEAN CORPUSCULAR VOLUME 97.8 fl (80.0-96.0); MONO # 0.6 10^3/uL (0.0-0.8); NEUTROPHILS # 6.2 10^3/uL (1.5-8.5); NEUTROPHILS % 71.8 % (36.0-66.0); PLATELET COUNT, AUTOMATED 283 10^3/uL (150-450); WHITE BLOOD COUNT 8.6 10^3/uL (4.0-10.0)
[2019-10-23 11:02] VITALS: BP 131/92
[2019-10-23 11:04] LABS: ALBUMIN 3.2 GM/DL (3.2-5.2); ALT/SGPT 19 U/L (12-78); BILIRUBIN,TOTAL 0.7 MG/DL (0.2-1.0); BLOOD UREA NITROGEN 12 MG/DL (7-18); CARBON DIOXIDE LEVEL 29 MEQ/L (21-32); CHLORIDE LEVEL 106 MEQ/L (98-107); CREATININE FOR GFR 1.05 MG/DL (0.70-1.30); GLOMERULAR FILTRATION RATE > 60.0 (>42); GLUCOSE, FASTING 122 MG/DL (70-100); POTASSIUM SERUM 3.8 MEQ/L (3.5-5.1); SODIUM LEVEL 142 MEQ/L (136-145); TOTAL PROTEIN 7.7 GM/DL (6.4-8.2)
--- NOTE | 2019-10-23 11:35 | ONC.PHACK ---
CHEMO ADMIN CHECKLIST Order Contains Pt ID: Name, Order on Chemo Order Form?: Yes Order Form Includes ALL: Correct Tx Day, Correct Date, Correct Cycle Number Pt ID on Order form Matches: Pt ID on PHA Label Med on Chemo OrderForm Matches: PHA Label, Med Used for Preparation [facility] October 23, 2019 11:35
[2019-10-23 12:14] LABS: FREE T4 1.26 NG/DL (0.76-1.46); THYROID STIMULATING HORMONE 1.76 uIU/ML (0.358-3.740)
--- NOTE | 2019-10-28 12:44 | MEDONC ---
MEDICAL ONCOLOGY FOLLOWUP/TREATMENT VISIT DATE OF SERVICE: 10/23/2019 DIAGNOSIS: 1. 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 2. History of stage IIIB, T3N2M0 squamous cell carcinoma of lung diagnosed June 2018 . 3. 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 Follows in [facility]. TREATMENT HISTORY Concurrent chemoradiation with weekly carboplatin/paclitaxel completed 06/2017 - 08/2017 Declined adjuvant durvalumab 06/2018 paraesophageal node biopsy positive for recurrent carcinoma TURBT 2018, [facility]; declined BCG Carboplatin/nab-paclitaxel three cycles 04/04/2019-06/19/2019. Carboplatin/nab-paclitaxel/pembrolizumab one cycle 07/11/2019. CURRENT THERAPY: Maintenance pembrolizumab, day 1 cycle 1, 08/01/2019. COMORBIDITIES: Severe peripheral vascular disease GOUT AAA repair MOLECULAR/GENOMIC -06/2018 para-esophageal biopsy: ALK/EGFR/KRAS negative; PD-L1 1% SURVEILLANCE: Restaging CT CAP/Neck 06/06/[address] 06/17/19 no evidence of metastases Cystoscopy per [facility] 09/04/2019 CT CAP: Increased opacity left lower lobe versus prior no other changes. INTERVAL HISTORY: Albert is here for day 1 cycle 5 maintenance pembrolizumab. His most recent surveillance scans were CT chest, abdomen, and pelvis on September 03. Of note, a left lower lobe opacity which appeared new was seen as well as a stable left adrenal nodule possibly representing metastatic focus. He otherwise has unchanged mediastinal adenopathy and unchanged thoracic aortic aneurysm with no new effusions and no obvious bony lesions. Today, I offered Albert switch to every 6 week pembrolizumab dosed at 400 mg to decrease frequency of visits. I also recommended PET scan to sort out the left lower lobe finding. He is minimally to asymptomatic with respect to lung symptom and he does have a cough occasionally, but this is unchanged. I also informed him of my impending departure from [facility] end of December. He would like to start this pembrolizumab q. 6 weeks and accepts the news about my departure. REVIEW OF SYSTEMS: CONSTITUTIONAL: No fever, chills, sweats, fatigue, or weight loss. HEENT: No oral discomfort or mouth or lip ulcers. Hearing normal in both ears. RESPIRATORY: Denies dyspnea, hemoptysis, pleurisy; occasional cough of clear sputum. CARDIOVASCULAR: Denies chest pain, palpitations. MUSCULOSKELETAL: Denies skeletal pain, joint swelling, pain, or erythema. GENITOURINARY: No history of urinary frequency, burning, hematuria, or pain. Scheduled for a telehealth visit with following renal cyst. GASTROINTESTINAL: No nausea, vomiting, constipation, diarrhea, dysphagia, bleeding, or anorexia. SKIN: Denies rash, ecchymosis, petechiae, jaundice. NEUROLOGICAL: No headache, visual difficulty, motor weakness; some mild tingling in hands and feet. No balance problems. No falls. EXTREMITIES: No extremity edema. VITAL SIGNS: Reviewed. Weight 85 kg, stable. Temperature 98, blood pressure 131/92, heart rate 92, respiratory 18, O2 sat 98%. The patient is a very well groomed, pleasant, youthful older gentleman. Respiratory: Clear lungs throughout the lung gonzalez. No wheezes, rales, or rubs. Cardiac: S1, S2, regular rate and rhythm. No audible murmur. No gallop. Abdomen: Soft, nontender, nondistended. Extremities: No edema or asymmetry. Lymph Nodes: No submandibular, cervical, supraclavicular, or axillary adenopathy bilaterally. LABORATORY DATA: WBC 8.6, hemoglobin 12, hematocrit 36, platelets 283, MCV 97, ANC 6200. Electrolytes normal. Renal function, liver functions normal. Glucose 122. TSH pending. Most recent TSH on 10/03/2019 normal. CEA pending. Most recent on 09/12/2019 2.1. IMPRESSION: 69-year-old man with metastatic/recurrent squamous cell carcinoma of lung, COPD, peripheral vascular disease, renal cyst, on maintenance pembrolizumab following initial [place] based combination chemoimmunotherapy with major partial response having presented with bulky neck and mediastinal adenopathy now resolved. New left lung opacity bares evaluation on PET. No infectious signs or symptoms. ECOG performance status 0/1, mild exertional dyspnea unchanged. No new cough, chronic mild occasional cough. PLAN: 1. Cycle 5 maintenance pembrolizumab today. 2. Switch to q. 6 week schedule in dosing. 3. Return to clinic in 6 weeks for cycle 6 maintenance with labs. 4. PET/CT to evaluate left lung. Electronically Signed by Laura Ayala MD 10/29/2019 06:27 P DD: Laura Ayala MD 10/23/2019 11:24 A DT: ector 10/28/2019 12:44 P CC:
[2019-11-19 14:51] VITALS: BP 110/74
[2019-11-21 10:10] VITALS: BP 113/78
[2019-11-21 10:12] LABS: BASO % 0.2 % (0.0-1.0); EOS # 0.3 10^3/uL (0.0-0.5); HEMATOCRIT 34.9 % (42.0-52.0); HEMOGLOBIN 11.3 g/dl (13.5-17.5); LYMPH # 1.1 10^3/uL (1.5-5.0); LYMPH % 12.3 % (24.0-44.0); MEAN CORPUSCULAR HEMOGLOBIN 31.1 pg (27.0-33.0); MEAN CORPUSCULAR HGB CONC 32.4 g/dl (32.0-36.5); MEAN CORPUSCULAR VOLUME 96.1 fl (80.0-96.0); MONO # 0.6 10^3/uL (0.0-0.8); MONO % 6.7 % (0.0-5.0); NEUTROPHILS # 6.8 10^3/uL (1.5-8.5); NEUTROPHILS % 77.5 % (36.0-66.0); PLATELET COUNT, AUTOMATED 272 10^3/uL (150-450); RED BLOOD COUNT 3.63 10^6/uL (4.30-6.10); WHITE BLOOD COUNT 8.8 10^3/uL (4.0-10.0)
[2019-11-21 10:36] LABS: ALT/SGPT 14 U/L (12-78); BILIRUBIN,TOTAL 0.3 MG/DL (0.2-1.0); BLOOD UREA NITROGEN 13 MG/DL (7-18); CALCIUM LEVEL 9.4 MG/DL (8.8-10.2); CARBON DIOXIDE LEVEL 30 MEQ/L (21-32); CHLORIDE LEVEL 105 MEQ/L (98-107); CREATININE FOR GFR 0.99 MG/DL (0.70-1.30); GLOMERULAR FILTRATION RATE > 60.0 (>42); GLUCOSE, FASTING 116 MG/DL (70-100); POTASSIUM SERUM 3.4 MEQ/L (3.5-5.1); SODIUM LEVEL 140 MEQ/L (136-145); TOTAL PROTEIN 7.4 GM/DL (6.4-8.2)
--- NOTE | 2019-11-21 10:57 | ONC.PHACK ---
CHEMO ADMIN CHECKLIST Order Contains Pt ID: Name, Order on Chemo Order Form?: Yes Order Form Includes ALL: Correct Tx Day, Correct Date, Correct Cycle Number Pt ID on Order form Matches: Pt ID on PHA Label Med on Chemo OrderForm Matches: PHA Label, Med Used for Preparation [facility] Nov 21, 2019 10:57
--- NOTE | 2019-11-21 11:42 | MEDONC ---
MEDICAL ONCOLOGY FOLLOWUP DATE OF SERVICE: 11/19/2019 DIAGNOSES: 1. 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 2. History of stage IIIB, T3N2M0 squamous cell carcinoma of lung diagnosed June 2018 . 3. 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 Follows in [facility]. CURRENT THERAPY: Maintenance pembrolizumab, day 1 cycle 1, 08/01/2019. TREATMENT HISTORY Concurrent chemoradiation with weekly carboplatin/paclitaxel completed 06/2017 - 08/2017 Declined adjuvant durvalumab 06/2018 paraesophageal node biopsy positive for recurrent carcinoma TURBT 2018, [facility]; declined BCG Carboplatin/nab-paclitaxel three cycles 04/04/2019-06/19/2019. Carboplatin/nab-paclitaxel/pembrolizumab one cycle 07/11/2019. COMORBIDITIES: Severe peripheral vascular disease GOUT AAA repair MOLECULAR/GENOMIC: -06/2018 para-esophageal biopsy: ALK/EGFR/KRAS negative; PD-L1 1% INTERVAL HISTORY: Albert is here for followup of restaging scans which, unfortunately, show disease progression. In addition, he was seen in the emergency room in the [facility] in [place] and told he had disease progression. He has had new shortness of breath. Chest CT 11/14/2019 shows new bilateral pulmonary metastatic lesions and an increased mediastinal and hilar adenopathy and though not delineated in the report, impression, encroachment on the trachea extrinsically. PET CT from 11/05/2019 shows hypermetabolic uptake in the larynx, left parotid, right parotid, left subclavian, mediastinum, and hilar which is bulky subcarinal and even in the abdominal areas. Albert reports some difficulty with breathing at times. I spoke with him very directly about the rapid progression of his cancer and need to switch therapies off maintenance pembrolizumab onto active chemotherapy second-line, such as docetaxel. We would try to get this started this week. I requested tomorrow, but it turns out he has been scheduled for . All I can do is request. I brought it to the attention of our administrative program specialist. I showed Albert the pictures, showed him the tracheal encroachment. I also discussed the case with Dr. Ryder of radiation oncology and made a rapid referral for potential salvage radiation in the event systemic chemotherapy is inadequate to control disease. I was very forthright with Albert that should his cancer continue to grow through next line treatment, his life expectancy will be very short, and asphyxiation is a risk, potentially requiring tracheotomy, but that would need to be below the level of disease encroachment. He expressed willingness to move quickly and return quickly this week for treatment. IMPRESSION: Recurrent metastatic squamous cell carcinoma of lung, now with progression through first-line palliative maintenance immunotherapy, very worrisome with rapid progression involving neck, chest, and abdomen adenopathy in a patient who has previously undergone primary chemoradiation. PLAN: 1. Return to clinic within 48 hours to begin single-agent docetaxel with plan to add ramucirumab after a cycle or two (Albert acknowledged hemoptysis today based on which I am holding the ramucirumab in the first few cycles). 2. I did request verbally that he be treated beginning tomorrow but learned at the end of the day after the business day over that he was scheduled for the following day. 3. I cautioned Albert to call 9-1-1 should he develop any abrupt new shortness of breath while at home. 4. A.s.a.p. radiation oncology referral for potential salvage radiation. TIME STATEMENT: 25 minutes [id number] with the patient, more than 50% involving counseling, reviewing imaging, discussing next line chemotherapy, its salvage nature, obtaining written informed consent. Electronically Signed by Laura Ayala MD 11/25/2019 05:02 P DD: Laura Ayala MD 11/19/2019 04:30 P DT: pritesh 11/21/2019 11:21 A CC: MD Guillermo Helms DO
[2019-12-11 08:28] VITALS: BP 116/82
[2019-12-11 08:42] LABS: BASO % 0.1 % (0.0-1.0); HEMATOCRIT 35.2 % (42.0-52.0); HEMOGLOBIN 11.1 g/dl (13.5-17.5); LYMPH # 0.9 10^3/uL (1.5-5.0); LYMPH % 6.8 % (24.0-44.0); MEAN CORPUSCULAR HGB CONC 31.5 g/dl (32.0-36.5); MEAN CORPUSCULAR VOLUME 95.1 fl (80.0-96.0); MONO # 0.3 10^3/uL (0.0-0.8); MONO % 2.4 % (0.0-5.0); NEUTROPHILS # 11.5 10^3/uL (1.5-8.5); NEUTROPHILS % 89.6 % (36.0-66.0); PLATELET COUNT, AUTOMATED 518 10^3/uL (150-450); WHITE BLOOD COUNT 12.9 10^3/uL (4.0-10.0)
[2019-12-11 09:11] LABS: ALBUMIN 2.9 GM/DL (3.2-5.2); ALT/SGPT 34 U/L (12-78); BILIRUBIN,TOTAL 0.2 MG/DL (0.2-1.0); BLOOD UREA NITROGEN 17 MG/DL (7-18); CALCIUM LEVEL 10.5 MG/DL (8.8-10.2); CARBON DIOXIDE LEVEL 29 MEQ/L (21-32); CHLORIDE LEVEL 102 MEQ/L (98-107); CREATININE FOR GFR 1.13 MG/DL (0.70-1.30); GLOMERULAR FILTRATION RATE > 60.0 (>42); GLUCOSE, FASTING 172 MG/DL (70-100); POTASSIUM SERUM 4.5 MEQ/L (3.5-5.1); SODIUM LEVEL 138 MEQ/L (136-145); TOTAL PROTEIN 8.1 GM/DL (6.4-8.2)
[2019-12-11] MEDS: SODIUM CHLORIDE 0.9% INJ 10 ML SYR IV PRN ×2 (11:29→11:59)
--- NOTE | 2019-12-19 23:05 | MEDONC ---
MEDICAL ONCOLOGY FOLLOWUP/TREATMENT VISIT DATE OF SERVICE: 12/11/2019 DIAGNOSES: 1. 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 2. History of stage IIIB, T3N2M0 squamous cell carcinoma of lung diagnosed June 2018 . 3. 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 Follows in [facility]. CURRENT THERAPY: Docetaxel single agent begun 11/21/2019 as salvage chemotherapy for rapidly progressing recurrent disease. Plan is to add ramucirumab if docetaxel tolerated TREATMENT HISTORY: Concurrent chemoradiation with weekly carboplatin/paclitaxel completed 06/2017 - 08/2017 Declined adjuvant durvalumab 06/2018 paraesophageal node biopsy positive for recurrent carcinoma TURBT 2018, [facility]; declined BCG Carboplatin/nab-paclitaxel three cycles 04/04/2019-06/19/2019. Carboplatin/nab-paclitaxel/pembrolizumab one cycle 07/11/2019. Maintenance pembrolizumab 08/01/2019-11/19/2019, stopped for progression. COMORBIDITIES: Severe peripheral vascular disease GOUT AAA repair MOLECULAR/GENOMIC: -06/2018 para-esophageal biopsy: ALK/EGFR/KRAS negative; PD-L1 1% INTERVAL HISTORY: Albert is here accompanied by his daughter. He reports "not doing well." However, on very close questioning it sounds as though the first 2-3 days of the first cycle of docetaxel went well, he then had some fatigue and overall, though he is still having some breathing problems, it does not appear that he is clinically significantly worse versus starting docetaxel. I spoke with Albert and his daughter very specifically frankly and directly about the fact that he is on a salvage attempt of treatment, and should this not be effective, his options for disease control become very limited, though other drugs exist that could be tried. I reviewed again the films showing tracheal compression. I asked Albert closely about symptoms regarding shortness of breath and my clinical impression is there is no major worsening of his symptoms today versus 3 weeks ago. FOCUSED REVIEW OF SYSTEMS: No fevers or chills. Positive for cough. Positive for shortness of breath. Negative for orthopnea. Negative for new leg swelling, facial swelling, neck swelling or pain. PHYSICAL EXAMINATION: Weight 80 kg down by 5 kg versus 11/20, temperature 97, blood pressure 116/82, heart rate 91, respiratory rate 20, O2 sat 97%. Respiratory: Clear lung sounds throughout the lung gonzalez anteriorly and posteriorly with some slight rhonchi but no stridor. No pretracheal stridor. No wheezes. No basilar rales. Cardiac: S1, S2, regular rate and rhythm. No murmur. No gallop. Abdomen: Soft, nontender, nondistended, no hepatosplenomegaly or mass. Extremities: No edema. HEENT: No facial swelling. No facial edema. No venous distension. Lymph nodes: No submandibular, cervical, supraclavicular or palpable axillary adenopathy bilaterally. LABORATORY DATA: WBC 12.9, hemoglobin 11, hematocrit 35, platelets 518, MCV 95. Electrolytes, renal function normal. Glucose 172. Liver functions normal. Alk phos 131. CEA pending. CEA on 11/21/2019 was 1.6. IMPRESSION: 69-year-old man with recurrent metastatic squamous cell carcinoma of lung, original diagnosis was stage III disease in June 2018, metastatic recurrence in March 2019 after chemo radiation; major partial response to immunochemotherapy, now with recurrence on second-line metastatic treatment with single-agent docetaxel, waiting to add ramucirumab for restaging scans after two cycles. So far tolerating dose docetaxel fairly well, though performance status now one. PLAN: 1. Cycle two docetaxel today. 2. Restaging scans two weeks after today's treatment and followup in 3 weeks for cycle three. As long as stable disease or improvement, add ramucirumab and continue until disease progression. 3. I spoke frankly and directly with Albert and his daughter today about the salvage nature of current treatment, the somewhat ominous way his cancer has recurred early and suddenly, and advised immediate 9-1-1 call and emergency room evaluation for any increase in shortness of breath, or new facial swelling, or neck discomfort. Electronically Signed by Laura Ayala MD 12/25/2019 07:14 A DD: Laura Ayala MD 12/11/2019 03:51 P DT: jill 12/19/2019 10:47 P CC: MD Guillermo Helms DO
[2020-01-23 11:18] VITALS: BP 92/65
[2020-01-23 12:04] LABS: BASO # 0.1 10^3/uL (0.0-0.2); BASO % 0.5 % (0.0-1.0); EOS # 0.1 10^3/uL (0.0-0.5); EOS % 1.1 % (0.0-3.0); HEMATOCRIT 35.5 % (42.0-52.0); HEMOGLOBIN 11.1 g/dl (13.5-17.5); LYMPH # 1.2 10^3/uL (1.5-5.0); LYMPH % 9.3 % (24.0-44.0); MEAN CORPUSCULAR HEMOGLOBIN 29.9 pg (27.0-33.0); MEAN CORPUSCULAR HGB CONC 31.3 g/dl (32.0-36.5); MEAN CORPUSCULAR VOLUME 95.7 fl (80.0-96.0); MONO # 1.1 10^3/uL (0.0-0.8); MONO % 8.9 % (0.0-5.0); NEUTROPHILS # 10.2 10^3/uL (1.5-8.5); NEUTROPHILS % 79.7 % (36.0-66.0); PLATELET COUNT, AUTOMATED 341 10^3/uL (150-450); RED BLOOD COUNT 3.71 10^6/uL (4.30-6.10); WHITE BLOOD COUNT 12.8 10^3/uL (4.0-10.0)
--- NOTE | 2020-01-23 12:09 | MEDONCPDOC ---
Medical Oncology Office Note Date of Service: Jan 23, 2020 Diagnosis/Treatment History DIAGNOSES: 1. 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 2. History of stage IIIB, T3N2M0 squamous cell carcinoma of lung diagnosed June 2018 . 3. 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 Follows in [facility]. CURRENT THERAPY: Docetaxel single agent begun 11/21/2019 as salvage chemotherapy for rapidly progressing recurrent disease. Ramucirumab added 01/02/2020. TREATMENT HISTORY: Concurrent chemoradiation with weekly carboplatin/paclitaxel completed 06/2017 - 08/2017. Declined adjuvant durvalumab. 06/2018 paraesophageal node biopsy positive for recurrent carcinoma TURBT 2018, [facility]; declined BCG Carboplatin/nab-paclitaxel three cycles 04/04/2019-06/19/2019. Carboplatin/nab-paclitaxel/pembrolizumab one cycle 07/11/2019. Maintenance pembrolizumab 08/01/2019-11/19/2019, stopped for progression. COMORBIDITIES: Severe peripheral vascular disease GOUT AAA repair MOLECULAR/GENOMIC: -06/2018 para-esophageal biopsy: ALK/EGFR/KRAS negative; PD-L1 1% Interval History Mr. Albert Jean-Baptiste is a 69-year-old man with metastatic recurrent squamous cell carcinoma of the lung diagnosed March 2019. He is currently on docetaxel chemotherapy with ramucirumab. He reports poor taste sensation and has lost weight since starting treatment. He also has a cough with phlegm every once in a while. Mild hemoptysis occasionally with the last episode 2 weeks ago. He reports burning chest pain for which he takes acetaminophen with relief. He also reports that his respiratory status/breathing has improved since starting treatment. He still has shortness of breath with exertion mild to moderate at present. Allergies Coded Allergies: No Known Allergies (Unverified , 11/14/19) Home Medications Active Scripts Dexamethasone (Dexamethasone) 4 Mg Tablet, 4 MG PO ASDIRECTED for 10 Days, #30 TAB 3 Refills TAKE 2 TABLETS BY MOUTH TWICE DAILY FOR 3 DAYS, STARTING 1 DAY BEFORE CHEMOTHERAPY. Prov:Laura Ayala MD 11/19/19 Prochlorperazine Maleate (Prochlorperazine Maleate) 10 Mg Tablet, 10 MG PO Q8H PRN for NAUSEA, #30 TAB 3 Refills Prov:Newton CenterLaura. 11/19/19 Ondansetron HCl (Ondansetron HCl) 8 Mg Tablet, 8 MG PO Q6H PRN for NAUSEA, #30 TAB 3 Refills Prov:Jamie,Laura F. 11/19/19 Reported Medications Cholecalciferol (Vitamin D3) (Vitamin D3) 1,000 Unit Tablet, 2000 UNITS PO DAILY 11/14/19 Allopurinol (Zyloprim) 300 Mg Tablet, 300 MG PO DAILY, TAB 11/14/19 Guaifenesin (Guaifenesin) 200 Mg Tablet, 200 MG PO Q8H PRN for COUGH 11/14/19 Simvastatin (Simvastatin) 40 Mg Tablet, 40 MG PO QHS 06/27/19 Metoprolol Tartrate (Metoprolol Tartrate) 25 Mg Tablet, 12.5 MG PO BID 05/09/19 Tamsulosin HCl (Flomax) 0.4 Mg Capsule, 0.4 MG PO DAILY, CAP 04/12/19 Docusate Sodium (Colace) 100 Mg Capsule, 100 MG PO BID PRN for CONSTIPATION 04/12/19 Past Medical History Past Medical History: Hypertension. BPH. Gout. Hypercholesterolemia. Abdominal aortic aneurysm greater than 5 cm. Family History: Father diagnosed with colon cancer age 54. Brother diagnosed with throat cancer. A sister of lung cancer age 61. A paternal uncle had some kind of cancer. A second paternal uncle had colon cancer. A paternal aunt lung cancer, possibly also colon cancer. Social History: 40 pack-year smoking history stopped 1 year ago. Denies alcohol. 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 Legally many years. Lives in [place], [place]. Review of Systems General: Denies: Chills, Night Sweats, Fatigue, Malaise, Normal Appetite Constitutional: Reports: Weight Loss; Denies: Chills, Fever, Malaise, Night Sweats, Weakness, Fatigue, Lethargy, Normal appetite Eyes: Denies: Pain, Vision change, Conjunctivae inflammation, Eyelid inflammation, Redness HEENT: Reports: Head Aches; Denies: Ear Pain, Dysphagia, Sinus Congestion, Post Nasal Drip, Sore Throat, Epistaxis Skin: Denies: Rash, Lesions, Jaundice, Bruising Pulmonary: Reports: Dyspnea, Cough; Denies: Pleuritic Chest Pain Cardiovascular: Denies: Chest Pain, Palpitations, Orthopnea, Paroxysmal Noc. Dyspnea, Edema, Lt Headedness Gastrointestinal: Reports: Constipation, Hematochezia; Denies: Nausea, Vomiting, Abdominal Pain, Diarrhea, Melena Genitourinary: Denies: Dysuria, Frequency, Incontinence, Hematuria, Retention Hematologic: Denies: Bruising, Bleeding Excessively, Petecchia, Purpura, Enlarged Lymph Nodes Endocrine: Denies: Polydipsia, Polyphagia, Polyuria, Heat Intolerance, Cold Intolerance Musculoskeletal: Reports: Back pain; Denies: Neck pain, Shoulder pain, Arm pain, Hand pain, Leg pain, Foot pain, Joint pain, Muscle pain, Spasms, Gout, Joint sweling, Muscle stiffness, Midthoracic pain Neurological: Denies: Weakness, Numbness, Incoordination, Change in Speech, Confusion, Seizures Psych: Reports: Mood Normal; Denies: Anxiety, Depression, Memory Issues, Thoughts of Self Harm, Anger, Thoughts of harming Other Physical Examination General Exam: Positive: Alert, Cooperative, No Acute Distress, Oriented Times Three Eye Exam: Positive: PERRLA, Conjunctiva & lids normal, EOMI; Negative: Sclera icteric, Ptosis ENT EXAM: Positive: Atraumatic, Mucous membr. moist/pink, Pharynx Normal, Tongue Midline, Nares Patent; Negative: Pharyngeal Edema Neck Exam: Positive: Supple; Negative: JVD, Thyromegaly, Lymphadenopathy Chest Exam: Positive: Clear to auscultation, Normal air movement; Negative: Rales, Rhonchi, Wheezing Heart Exam: Positive: Rate Normal, Regular Rhythm, Normal S1, Normal S2; Negative: Gallops, Murmurs, Rubs Abdomen Exam: Positive: Normal bowel sounds, Soft; Negative: Tenderness, Hepatospenomegaly, Mass, Hernia Extremity Exam: Positive: Normal pulses; Negative: Clubbing, Cyanosis, Edema, Tenderness, Swelling Skin Exam: Positive: Nl turgor and temperature; Negative: Rash, Breakdown, Lesion, Pruritus Neuro Exam: Positive: Normal Gait, Normal Tone; Negative: Normal Speech Psych Exam: Positive: Mental status NL, Mood NL, Oriented x 3; Negative: Anxiety Ht / Wt Ht / Wt Height:5 Feet 8 Inches Weight: 76.700 Kg Vital Signs Vital Signs Date Time Temp Pulse Resp B/P (MAP) Pulse Ox O2 Delivery O2 Flow Rate FiO2 01/23/20 11:18 97.6 100 16 92/65 (74) 96 Room Air Laboratory Data Laboratory Tests Test 01/23/20 10:40 01/23/20 10:53 Assessment/Plan 69-year-old with metastatic squamous cell carcinoma of the lung on docetaxel chemotherapy with ramucirumab. CT chest, abdomen and pelvis 12/25/2019 after 2 cycles of chemotherapy showed disease progression with increase in bilateral mediastinal and hilar adenopathy and increased size and number of pulmonary nodules. Results discussed with the patient. I discussed possible options moving forward. One is to continue with the same regimen as he only had 2 cycles so far and may derive additional benefit with additional cycles. In addition, he reports improvement in respiratory status/breathing on current regimen. Another option would be to switch to another chemotherapy regimen, though I did caution him that there is likely no other chemotherapy that would confer a bigger benefit than docetaxel and ramucirumab. He has decided to go through an additional 2 cycles of chemotherapy including one today. We will obtain another follow-up imaging study after the next cycle of chemotherapy. CC TO: CC TO: Primary Care Provider: PCP,Unknown Referring Provider: Rachel Haque FLORENCE P. MD Jan 23, 2020 12:09
[2020-01-23 12:12] LABS: ALBUMIN 2.6 GM/DL (3.2-5.2); ALT/SGPT 11 U/L (12-78); BILIRUBIN,TOTAL 0.4 MG/DL (0.2-1.0); BLOOD UREA NITROGEN 15 MG/DL (7-18); CALCIUM LEVEL 9.4 MG/DL (8.8-10.2); CARBON DIOXIDE LEVEL 27 MEQ/L (21-32); CHLORIDE LEVEL 105 MEQ/L (98-107); CREATININE FOR GFR 1.04 MG/DL (0.70-1.30); GLOMERULAR FILTRATION RATE > 60.0 (>42); GLUCOSE, FASTING 114 MG/DL (70-100); POTASSIUM SERUM 3.8 MEQ/L (3.5-5.1); SODIUM LEVEL 138 MEQ/L (136-145); TOTAL PROTEIN 6.7 GM/DL (6.4-8.2)
[2020-01-23 12:38] LABS: FREE T4 1.28 NG/DL (0.76-1.46); THYROID STIMULATING HORMONE 1.9 uIU/ML (0.358-3.740)
--- NOTE | 2020-01-23 12:52 | ONC.PHACK ---
CHEMO ADMIN CHECKLIST Order Contains Pt ID: Name, Order on Chemo Order Form?: Yes Order Form Includes ALL: Correct Tx Day, Correct Date, Correct Cycle Number Pt ID on Order form Matches: Pt ID on PHA Label Med on Chemo OrderForm Matches: PHA Label, Med Used for Preparation [facility] Jan 23, 2020 12:52
[2020-02-11 12:38] LABS: BASO # 0.1 10^3/uL (0.0-0.2); BASO % 0.5 % (0.0-1.0); EOS # 0.4 10^3/uL (0.0-0.5); EOS % 2.8 % (0.0-3.0); HEMATOCRIT 34.6 % (42.0-52.0); LYMPH # 1.4 10^3/uL (1.5-5.0); LYMPH % 9.5 % (24.0-44.0); MEAN CORPUSCULAR HEMOGLOBIN 30.4 pg (27.0-33.0); MEAN CORPUSCULAR HGB CONC 31.8 g/dl (32.0-36.5); MEAN CORPUSCULAR VOLUME 95.6 fl (80.0-96.0); MONO # 0.8 10^3/uL (0.0-0.8); MONO % 5.2 % (0.0-5.0); NEUTROPHILS # 12.1 10^3/uL (1.5-8.5); NEUTROPHILS % 81.2 % (36.0-66.0); PLATELET COUNT, AUTOMATED 384 10^3/uL (150-450); RED BLOOD COUNT 3.62 10^6/uL (4.30-6.10); WHITE BLOOD COUNT 14.9 10^3/uL (4.0-10.0)
[2020-02-12 08:25] LABS: APPEARANCE, URINE CLEAR (CLEAR); BACTERIA, URINE AUTO NEGATIVE (NEGATIVE); BILIRUBIN, URINE AUTO NEGATIVE (NEGATIVE); BLOOD, URINE BLOOD NEGATIVE (NEGATIVE); COLOR, URINE YELLOW (YELLOW); GLUCOSE, URINE (UA) AUTO NEGATIVE (NEGATIVE); GRANULAR CAST, URINE AUTO 1 /LPF; KETONE, URINE AUTO NEGATIVE (NEGATIVE); LEUKOCYTE ESTERASE, URINE AUTO TRACE (NEGATIVE); MUCUS, URINE SMALL (NEGATIVE); NITRITE, URINE AUTO NEGATIVE (NEGATIVE); PROTEIN, URINE AUTO NEGATIVE (NEGATIVE); RBC, URINE AUTO 2 /HPF (0-3); SPECIFIC GRAVITY URINE AUTO 1.013 (1.002-1.035); SQUAMOUS EPITHELIAL CELL UR AU 0 /HPF (0-6); UROBILINOGEN, URINE AUTO 0.2 mg/dL (0.0-2.0); WBC, URINE AUTO 13 /HPF (0-3)
[2020-02-13 08:09] VITALS: BP 78/60
[2020-02-13 08:30] LABS: BASO # 0.1 10^3/uL (0.0-0.2); BASO % 0.9 % (0.0-1.0); EOS # 0.1 10^3/uL (0.0-0.5); EOS % 0.8 % (0.0-3.0); HEMATOCRIT 35.7 % (42.0-52.0); HEMOGLOBIN 11.2 g/dl (13.5-17.5); LYMPH # 1.6 10^3/uL (1.5-5.0); LYMPH % 17.4 % (24.0-44.0); MEAN CORPUSCULAR HEMOGLOBIN 29.9 pg (27.0-33.0); MEAN CORPUSCULAR HGB CONC 31.4 g/dl (32.0-36.5); MEAN CORPUSCULAR VOLUME 95.2 fl (80.0-96.0); MONO # 0.9 10^3/uL (0.0-0.8); MONO % 10.2 % (0.0-5.0); NEUTROPHILS # 6.4 10^3/uL (1.5-8.5); PLATELET COUNT, AUTOMATED 303 10^3/uL (150-450); RED BLOOD COUNT 3.75 10^6/uL (4.30-6.10); WHITE BLOOD COUNT 9.1 10^3/uL (4.0-10.0)
--- NOTE | 2020-02-13 08:52 | MEDONCPDOC ---
Medical Oncology Office Note Date of Service: Feb 13, 2020 Diagnosis/Treatment History DIAGNOSES: 1. 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 2. History of stage IIIB, T3N2M0 squamous cell carcinoma of lung diagnosed June 2018 . 3. 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 Follows in [facility]. CURRENT THERAPY: Docetaxel single agent begun 11/21/2019 as salvage chemotherapy for rapidly progressing recurrent disease. Ramucirumab added 01/02/2020. TREATMENT HISTORY: Concurrent chemoradiation with weekly carboplatin/paclitaxel completed 06/2017 - 08/2017. Declined adjuvant durvalumab. 06/2018 paraesophageal node biopsy positive for recurrent carcinoma TURBT 2018, [facility]; declined BCG Carboplatin/nab-paclitaxel three cycles 04/04/2019-06/19/2019. Carboplatin/nab-paclitaxel/pembrolizumab one cycle 07/11/2019. Maintenance pembrolizumab 08/01/2019-11/19/2019, stopped for progression. COMORBIDITIES: Severe peripheral vascular disease GOUT AAA repair MOLECULAR/GENOMIC: -06/2018 para-esophageal biopsy: ALK/EGFR/KRAS negative; PD-L1 1% Interval History 69-year-old with metastatic lung cancer on ramucirumab and docetaxel chemotherapy. Reports shortness of breath and cough with whitish phlegm. Fat igue. Also had diarrhea last week only for 2 and half days for which he took antidiarrheal medications. No skin rash. Allergies Coded Allergies: No Known Allergies (Unverified , 11/14/19) Home Medications Active Scripts Dexamethasone (Dexamethasone) 4 Mg Tablet, 4 MG PO ASDIRECTED for 10 Days, #30 TAB 3 Refills TAKE 2 TABLETS BY MOUTH TWICE DAILY FOR 3 DAYS, STARTING 1 DAY BEFORE CHEMOTHERAPY. Prov:AKANKSHA HAMILTON MD 02/13/20 Prochlorperazine Maleate (Prochlorperazine Maleate) 10 Mg Tablet, 10 MG PO Q8H PRN for NAUSEA, #30 TAB 3 Refills Prov:Laura Ayala MD 11/19/19 Ondansetron HCl (Ondansetron HCl) 8 Mg Tablet, 8 MG PO Q6H PRN for NAUSEA, #30 TAB 3 Refills Prov:Laura Ayala MD 11/19/19 Reported Medications Cholecalciferol (Vitamin D3) (Vitamin D3) 1,000 Unit Tablet, 2000 UNITS PO DAILY 11/14/19 Allopurinol (Zyloprim) 300 Mg Tablet, 300 MG PO DAILY, TAB 11/14/19 Guaifenesin (Guaifenesin) 200 Mg Tablet, 200 MG PO Q8H PRN for COUGH 11/14/19 Simvastatin (Simvastatin) 40 Mg Tablet, 40 MG PO QHS 06/27/19 Metoprolol Tartrate (Metoprolol Tartrate) 25 Mg Tablet, 12.5 MG PO BID 05/09/19 Tamsulosin HCl (Flomax) 0.4 Mg Capsule, 0.4 MG PO DAILY, CAP 04/12/19 Docusate Sodium (Colace) 100 Mg Capsule, 100 MG PO BID PRN for CONSTIPATION 04/12/19 Past Medical History Past Medical History: Hypertension. BPH. Gout. Hypercholesterolemia. Abdominal aortic aneurysm greater than 5 cm. Family History: Father diagnosed with colon cancer age 54. Brother diagnosed with throat cancer. A sister of lung cancer age 61. A paternal uncle had some kind of cancer. A second paternal uncle had colon cancer. A paternal aunt lung cancer, possibly also colon cancer. Social History: 40 pack-year smoking history stopped 2017. Denies alcohol. 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 Legally many years. Lives in [place], [place]. Review of Systems General: Reports: Fatigue; Denies: Chills, Night Sweats, Malaise, Normal Appetite Constitutional: Reports: Weight Loss; Denies: Chills, Fever, Malaise, Night Sweats, Weakness, Fatigue, Lethargy, Normal appetite Eyes: Denies: Pain, Vision change, Conjunctivae inflammation, Eyelid inflammation, Redness HEENT: Reports: Head Aches; Denies: Ear Pain, Dysphagia, Sinus Congestion, Post Nasal Drip, Sore Throat, Epistaxis Skin: Denies: Rash, Lesions, Jaundice, Bruising Pulmonary: Reports: Dyspnea, Cough; Denies: Pleuritic Chest Pain Cardiovascular: Reports: Lt Headedness; Denies: Chest Pain, Palpitations, Orthopnea, Paroxysmal Noc. Dyspnea, Edema Gastrointestinal: Reports: Diarrhea, Hematochezia (secondary to hemorrhoids); Denies: Nausea, Vomiting, Abdominal Pain, Constipation, Melena Genitourinary: Denies: Dysuria, Frequency, Incontinence, Hematuria, Retention Hematologic: Denies: Bruising, Bleeding Excessively, Petecchia, Purpura, Enlarged Lymph Nodes Endocrine: Denies: Polydipsia, Polyphagia, Polyuria, Heat Intolerance, Cold Intolerance Musculoskeletal: Reports: Back pain; Denies: Neck pain, Shoulder pain, Arm pain, Hand pain, Leg pain, Foot pain, Joint pain, Muscle pain, Spasms, Gout, Joint sweling, Muscle stiffness, Midthoracic pain Neurological: Denies: Weakness, Numbness, Incoordination, Change in Speech, Confusion, Seizures Psych: Reports: Mood Normal; Denies: Anxiety, Depression, Memory Issues, Thoughts of Self Harm, Anger, Thoughts of harming Other Physical Examination General Exam: Positive: Alert, Cooperative, No Acute Distress, Oriented Times Three Eye Exam: Positive: PERRLA, Conjunctiva & lids normal, EOMI; Negative: Sclera icteric, Ptosis ENT EXAM: Positive: Atraumatic, Mucous membr. moist/pink, Pharynx Normal, Tongue Midline, Nares Patent; Negative: Pharyngeal Edema Neck Exam: Positive: Supple; Negative: JVD, Thyromegaly, Lymphadenopathy Chest Exam: Positive: Clear to auscultation, Normal air movement, Rhonchi (. Occasional); Negative: Rales, Wheezing Heart Exam: Positive: Rate Normal, Regular Rhythm, Normal S1, Normal S2; Negative: Gallops, Murmurs, Rubs Abdomen Exam: Positive: Normal bowel sounds, Soft; Negative: Tenderness, Hepatospenomegaly, Mass, Hernia Extremity Exam: Positive: Normal pulses; Negative: Clubbing, Cyanosis, Edema, Tenderness, Swelling Skin Exam: Positive: Nl turgor and temperature; Negative: Rash, Breakdown, Lesion, Pruritus Neuro Exam: Positive: Normal Gait, Normal Tone; Negative: Normal Speech Psych Exam: Positive: Mental status NL, Mood NL, Oriented x 3; Negative: Anxiety Ht / Wt Ht / Wt Height:5 Feet 8 Inches Weight: 76.100 Kg Vital Signs Vital Signs Date Time Temp Pulse Resp B/P (MAP) Pulse Ox O2 Delivery O2 Flow Rate FiO2 02/13/20 08:09 97.5 62 20 78/60 (66) 98 Room Air Laboratory Data Laboratory Tests Test 02/13/20 07:57 Laboratory Tests 02/13/20 07:57 Assessment/Plan 69-year-old with metastatic squamous cell carcinoma of the lung on docetaxel chemotherapy with ramucirumab. CT chest, abdomen and pelvis 12/25/2019 after 2 cycles of chemotherapy showed disease progression with increase in bilateral mediastinal and hilar adenopathy and increased size and number of pulmonary nodules. For docetaxel and bevacizumab chemotherapy today. Follow-up CT scan after this cycle of chemotherapy to assess response to treatment. I discussed that if CT should show disease progression, we will stop the current regimen and consider another chemotherapy regimen such as gemcitabine chemotherapy. An alternative would be referral to hospice care. If CT should show a positive response or stable disease, he will continue on the same regimen. CC TO: CC TO: Primary Care Provider: PCP,Unknown Referring Provider: Rachel Haque FLORENCE P. MD Feb 13, 2020 08:52
[2020-02-13 09:00] LABS: ALBUMIN 2.5 GM/DL (3.2-5.2); ALT/SGPT 10 U/L (12-78); BILIRUBIN,TOTAL 0.4 MG/DL (0.2-1.0); BLOOD UREA NITROGEN 8 MG/DL (7-18); CALCIUM LEVEL 8.9 MG/DL (8.8-10.2); CARBON DIOXIDE LEVEL 27 MEQ/L (21-32); CHLORIDE LEVEL 110 MEQ/L (98-107); GLOMERULAR FILTRATION RATE > 60.0 (>42); GLUCOSE, FASTING 125 MG/DL (70-100); SODIUM LEVEL 142 MEQ/L (136-145); TOTAL PROTEIN 6.3 GM/DL (6.4-8.2)
[2020-02-13 09:21] LABS: FREE T4 1.35 NG/DL (0.76-1.46); THYROID STIMULATING HORMONE 1.91 uIU/ML (0.358-3.740)
[2020-02-13 10:15] VITALS: BP 99/67
--- NOTE | 2020-02-13 10:46 | ONC.PHACK ---
CHEMO ADMIN CHECKLIST Order Contains Pt ID: Name, Order on Chemo Order Form?: Yes Order Form Includes ALL: Correct Tx Day, Correct Date, Correct Cycle Number Pt ID on Order form Matches: Pt ID on PHA Label Med on Chemo OrderForm Matches: PHA Label, Med Used for Preparation [facility] Feb 13, 2020 10:46
[2020-02-13 11:09] LABS: APPEARANCE, URINE HAZY (CLEAR); BACTERIA, URINE AUTO NEGATIVE (NEGATIVE); BILIRUBIN, URINE AUTO NEGATIVE (NEGATIVE); BLOOD, URINE BLOOD 1+ (NEGATIVE); COLOR, URINE AMBER (YELLOW); GLUCOSE, URINE (UA) AUTO NEGATIVE (NEGATIVE); KETONE, URINE AUTO NEGATIVE (NEGATIVE); LEUKOCYTE ESTERASE, URINE AUTO TRACE (NEGATIVE); MUCUS, URINE SMALL (NEGATIVE); NITRITE, URINE AUTO NEGATIVE (NEGATIVE); PROTEIN, URINE AUTO 1+ mg/dL (NEGATIVE); RBC, URINE AUTO 15 /HPF (0-3); SPECIFIC GRAVITY URINE AUTO 1.017 (1.002-1.035); SQUAMOUS EPITHELIAL CELL UR AU 1 /HPF (0-6); WBC, URINE AUTO 35 /HPF (0-3)
[~2020-03-05] VITALS: Ht 172.7 cm; Wt 70.8 kg
[~2020-03-05 08:08] MED LIST changes: +ACET-838 PO; +ACETAMINOPHEN 650 MG PO PO ONE; +ACETAMINOPHEN TAB 650MG DOSE (2X325MG) PO ONE; -ASPI81TA85 PO; +ASPI81TA86 PO; +CARBOPLATIN IV ONE; +D31000TA2 PO; +DEXA4TA PO; +DOCETAXEL IV ONE; +DOCETAXEL ONE; -ENAL20TA PO; +ENAL20TA11 PO; +FAMOTIDINE 20 MG IV IV ONE; +FILGRASTIM 480 MCG/0.8 ML SYRINGE (J1442) SC ONE; +FOSAPREPITANT DIMEGLUMINE ONE; +FOSAPREPITANT PERIPHERAL LINE 30 MIN INFUSION (PREMIX) IV ONE; +FOSAPREPITANT PERIPHERAL LINE 30 MIN INFUSION IV ONE; +GUAI20TA PO; +KCL 10MEQ/100ML SWI (KRUN) 100 ML IV ONE; +MAGN400T2 PO; +NACL ONE; -NON-325T5 PO; +NS 1,000 ML IV ONE; +NS IV ONE; +OLANZapine 10 MG PO PO ONE; +OLANZapine 10 MG TAB PO ONE; +ONDA8TAB10 PO; +OVER IV ONE; +PACLITAXEL IV ONE; +PACLITAXEL PROTEIN BOUND IV ONE; +PALONOSETRON 0.25MG/5ML VIAL (ALOXI)(J2469 PER 25MCG) (FOR ONCOLOGY) As Ordered ONE; +PALONOSETRON 0.25MG/5ML VIAL (ALOXI)(J2469 PER 25MCG) (FOR ONCOLOGY) IV ONE; +PALONOSETRON 250 MCG IV IV ONE; +PEGFILGRASTIM 6 MG/0.6ML SYR (NEULASTA) (J2505 PER 6MG) SC ONE; +PEGFILGRASTIM 6MG/0.6ML ONPRO KIT (J2505 PER 6MG) (FOR ONCOLOGY) As Ordered ONE; +PEGFILGRASTIM 6MG/0.6ML ONPRO KIT (J2505 PER 6MG) (FOR ONCOLOGY) SC ONE; +PEMBROLIZUMAB 200 MG in NS 100 ML IV ONE; +PEMBROLIZUMAB IV ONE; +PEMBROLIZUMAB OVER 30 MINUTES IV ONE; +PROC10TA4 PO; +RAMUCIRUMAB IV ONE; +RAMUCIRUMAB ONE; +SODIUM CHLORIDE 0.9% INJ 10 ML SYR IV PRN; +[UNRECOGNIZED DRUG - OTHER] IV ONE; +[UNRECOGNIZED DRUG - REMARK] IV ONE; +dexameTHASONE 10 MG IV IV ONE; +dexameTHASONE 4 MG/ML 1ML VIAL (J1100 PER 1MG) As Ordered ONE; +dexameTHASONE 4 MG/ML 1ML VIAL (J1100 PER 1MG) IV ONE; +diphenhydrAMINE 25MG CAP PO ONE; +diphenhydrAMINE 50 MG IV IV ONE; +diphenhydrAMINE 50MG/ML VIAL (J1200) As Ordered ONE
[2020-03-05 08:52] VITALS: BP 119/62
[2020-03-05] MEDS ORDERED: RAMUCIRUMAB IV ONE ×3 (09:00)
[2020-03-05 09:02] LABS: BASO % 0.2 % (0.0-1.0); HEMATOCRIT 39.8 % (42.0-52.0); HEMOGLOBIN 12.3 g/dl (13.5-17.5); LYMPH # 1.1 10^3/uL (1.5-5.0); MEAN CORPUSCULAR HEMOGLOBIN 29.2 pg (27.0-33.0); MEAN CORPUSCULAR HGB CONC 30.9 g/dl (32.0-36.5); MEAN CORPUSCULAR VOLUME 94.5 fl (80.0-96.0); MONO # 0.4 10^3/uL (0.0-0.8); MONO % 2.9 % (0.0-5.0); NEUTROPHILS # 13.4 10^3/uL (1.5-8.5); NEUTROPHILS % 89.2 % (36.0-66.0); PLATELET COUNT, AUTOMATED 422 10^3/uL (150-450); RED BLOOD COUNT 4.21 10^6/uL (4.30-6.10)
[2020-03-05 09:33] LABS: ALBUMIN 2.4 GM/DL (3.2-5.2); BILIRUBIN,TOTAL 0.4 MG/DL (0.2-1.0); CALCIUM LEVEL 10.2 MG/DL (8.8-10.2); CREATININE FOR GFR 1.71 MG/DL (0.70-1.30); GLOMERULAR FILTRATION RATE 42.2 (>42); POTASSIUM SERUM 3.8 MEQ/L (3.5-5.1); TOTAL PROTEIN 6.9 GM/DL (6.4-8.2)
--- NOTE | 2020-03-05 09:38 | MEDONCPDOC ---
Medical Oncology Office Note Date of Service: Mar 05, 2020 Diagnosis/Treatment History DIAGNOSES: 1. 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 2. History of stage IIIB, T3N2M0 squamous cell carcinoma of lung diagnosed June 2018 . 3. 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 Follows in [facility]. CURRENT THERAPY: Docetaxel single agent begun 11/21/2019 as salvage chemotherapy for rapidly progressing recurrent disease. Ramucirumab added 01/02/2020. TREATMENT HISTORY: Concurrent chemoradiation with weekly carboplatin/paclitaxel completed 06/2017 - 08/2017. Declined adjuvant durvalumab. 06/2018 paraesophageal node biopsy positive for recurrent carcinoma TURBT 2018, [facility]; declined BCG Carboplatin/nab-paclitaxel three cycles 04/04/2019-06/19/2019. Carboplatin/nab-paclitaxel/pembrolizumab one cycle 07/11/2019. Maintenance pembrolizumab 08/01/2019-11/19/2019, stopped for progression. Interval History 70-year-old man with metastatic squamous cell carcinoma currently on docetaxel chemotherapy with ramucirumab. The patient reports that he has been feeling weaker. He also has had choking fits when drinking liquids. No choking fits when drinking, eating solids. He reports increasing shortness of breath. He is mostly sedentary at home, but he does live by himself with his daughter coming once a week to assist him with laundry and grocery shopping for him. He has not been able to drive recently and he has a cousin drive him when he needs to go out of the house. He also reports poor taste sensation and has been losing weight. Allergies Coded Allergies: No Known Allergies (Unverified , 11/14/19) Home Medications Active Scripts Dexamethasone (Dexamethasone) 4 Mg Tablet, 4 MG PO ASDIRECTED for 10 Days, #30 TAB 3 Refills TAKE 2 TABLETS BY MOUTH TWICE DAILY FOR 3 DAYS, STARTING 1 DAY BEFORE CHEMOTHERAPY. Prov:AKANKSHA HAMILTON MD 02/13/20 Prochlorperazine Maleate (Prochlorperazine Maleate) 10 Mg Tablet, 10 MG PO Q8H PRN for NAUSEA, #30 TAB 3 Refills Prov:Laura Ayala MD 11/19/19 Ondansetron HCl (Ondansetron HCl) 8 Mg Tablet, 8 MG PO Q6H PRN for NAUSEA, #30 TAB 3 Refills Prov:Laura AyalaAiram ROYAL 11/19/19 Reported Medications Cholecalciferol (Vitamin D3) (Vitamin D3) 1,000 Unit Tablet, 2000 UNITS PO DAILY 11/14/19 Allopurinol (Zyloprim) 300 Mg Tablet, 300 MG PO DAILY, TAB 11/14/19 Guaifenesin (Guaifenesin) 200 Mg Tablet, 200 MG PO Q8H PRN for COUGH 11/14/19 Simvastatin (Simvastatin) 40 Mg Tablet, 40 MG PO QHS 06/27/19 Metoprolol Tartrate (Metoprolol Tartrate) 25 Mg Tablet, 12.5 MG PO BID 05/09/19 Tamsulosin HCl (Flomax) 0.4 Mg Capsule, 0.4 MG PO DAILY, CAP 04/12/19 Docusate Sodium (Colace) 100 Mg Capsule, 100 MG PO BID PRN for CONSTIPATION 04/12/19 Past Medical History Past Medical History: Hypertension. BPH. Gout. Hypercholesterolemia. Abdominal aortic aneurysm greater than 5 cm. Family History: Father diagnosed with colon cancer age 54. Brother diagnosed with throat cancer. A sister of lung cancer age 61. A paternal uncle had some kind of cancer. A second paternal uncle had colon cancer. A paternal aunt lung cancer, possibly also colon cancer. Social History: 40 pack-year smoking history stopped 2017. Denies alcohol. 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 Lives alone. Legally many years. Lives in [place], [place]. Review of Systems General: Reports: Fatigue; Denies: Chills, Night Sweats, Malaise, Normal Appetite Constitutional: Reports: Weight Loss; Denies: Chills, Fever, Malaise, Night Sweats, Weakness, Fatigue, Lethargy, Normal appetite Eyes: Denies: Pain, Vision change, Conjunctivae inflammation, Eyelid inflammation, Redness HEENT: Reports: Head Aches, Other Symptoms (poor taste sensation); Denies: Ear Pain, Dysphagia, Sinus Congestion, Post Nasal Drip, Sore Throat, Epistaxis Skin: Denies: Rash, Lesions, Jaundice, Bruising Pulmonary: Reports: Dyspnea, Cough; Denies: Pleuritic Chest Pain Cardiovascular: Reports: Lt Headedness; Denies: Chest Pain, Palpitations, Orthopnea, Paroxysmal Noc. Dyspnea, Edema Gastrointestinal: Reports: Diarrhea, Hematochezia (secondary to hemorrhoids); Denies: Nausea, Vomiting, Abdominal Pain, Constipation, Melena Genitourinary: Denies: Dysuria, Frequency, Incontinence, Hematuria, Retention Hematologic: Denies: Bruising, Bleeding Excessively, Petecchia, Purpura, Enlarged Lymph Nodes Endocrine: Denies: Polydipsia, Polyphagia, Polyuria, Heat Intolerance, Cold Intolerance Musculoskeletal: Reports: Back pain; Denies: Neck pain, Shoulder pain, Arm pain, Hand pain, Leg pain, Foot pain, Joint pain, Muscle pain, Spasms, Gout, Joint sweling, Muscle stiffness, Midthoracic pain Neurological: Denies: Weakness, Numbness, Incoordination, Change in Speech, Confusion, Seizures Psych: Reports: Mood Normal; Denies: Anxiety, Depression, Memory Issues, Thoughts of Self Harm, Anger, Thoughts of harming Other Physical Examination General Exam: Positive: Alert, Cooperative, Mild Distress (when speaking.), Oriented Times Three Eye Exam: Positive: PERRLA, Conjunctiva & lids normal, EOMI; Negative: Sclera icteric, Ptosis ENT EXAM: Positive: Atraumatic, Mucous membr. moist/pink, Tongue Midline, Nares Patent Neck Exam: Positive: Supple; Negative: JVD, Thyromegaly, Lymphadenopathy Chest Exam: Positive: Clear to auscultation, Normal air movement, Rhonchi (. Occasional), Diminished (slightly decreased breath sounds, particularly on the left base); Negative: Rales, Wheezing Heart Exam: Positive: Tachycardic, Regular Rhythm, Normal S1, Normal S2; Negative: Rate Normal, Gallops, Murmurs, Rubs Abdomen Exam: Positive: Normal bowel sounds, Soft; Negative: Tenderness, Hepatospenomegaly, Mass, Hernia Extremity Exam: Positive: Normal pulses; Negative: Clubbing, Cyanosis, Edema, Tenderness, Swelling Skin Exam: Positive: Nl turgor and temperature; Negative: Rash, Breakdown, Lesion, Pruritus Neuro Exam: Positive: Normal Tone; Negative: Normal Gait (came in a wheelchair.), Normal Speech Psych Exam: Positive: Mental status NL, Mood NL, Oriented x 3; Negative: Anxiety Ht / Wt Ht / Wt Height:5 Feet 8 Inches Weight: 70.800 Kg Vital Signs Vital Signs Date Time Temp Pulse Resp B/P (MAP) Pulse Ox O2 Delivery O2 Flow Rate FiO2 03/05/20 08:52 97.8 72 16 119/62 (81) 96 Room Air Laboratory Data Laboratory Tests Test 03/05/20 08:27 Laboratory Tests 03/05/20 08:27 Assessment/Plan 69-year-old with metastatic squamous cell carcinoma of the lung on docetaxel chemotherapy with ramucirumab suboptimal performance status ECOG 2-3. CT chest, abdomen and pelvis 12/25/2019 after 2 cycles of chemotherapy showed disease progression with increase in bilateral mediastinal and hilar adenopathy and increased size and number of pulmonary nodules. CT chest, abdomen and pelvis, 02/20/2020 showed disease progression with worsening pulmonary metastatic disease and a new left pleural effusion. Results discussed with the patient. I recommended discontinuing the current regimen because this is not working. This is also causing him side effects such as poor taste sensation and weakness. I discussed that docetaxel chemotherapy with ramucirumab is considered the most effective second line treatment known at this time. He could go on another chemotherapy regimen but this would likely not be of any benefit to him and would only cause toxicities. I discussed a referral to hospice. He wanted to discuss this with his daughter first. I also discussed thoracentesis for symptomatic relief of left-sided pleural effusion. He wanted to hold off on this. Await decision on hospice and thoracentesis. CC TO: CC TO: Primary Care Provider: PCP,Unknown Referring Provider: Rachel Haque FLORENCE P. MD Mar 05, 2020 09:38
[2020-03-05 09:45] LABS: FREE T4 1.56 NG/DL (0.76-1.46); THYROID STIMULATING HORMONE 3.99 uIU/ML (0.358-3.740)
[2020-03-05] MEDS ORDERED: OVER IV ONE ×2 (10:30)
[2020-03-05] MEDS ORDERED: DOCETAXEL IV ONE ×2 (10:30)
[2020-03-05] MEDS ORDERED: PEGFILGRASTIM 6MG/0.6ML ONPRO KIT (J2505 PER 6MG) (FOR ONCOLOGY) SC ONE (11:30)
--- NOTE | 2020-03-13 06:16 | MEDONC ---
DATE OF VISIT: 01/02/2020 DIAGNOSIS: Non-small cell squamous cell lung cancer on Ramucirumab and Docetaxel chemotherapy. HISTORY OF PRESENT ILLNESS: Mr. Jean-Baptiste has been receiving Docetaxel chemotherapy. He reports that his breathing has been slightly better since starting chemotherapy. However he continues to have a lot of phlegm for which he was prescribed Scopolamine patch but this was not helpful and he therefore discontinued this. He was having increased shortness of breath on Scopolamine patch but now his breathing has been slightly better. He reports poor appetite as he has had poor taste sensation and his weight has been going down. No fevers, no night sweats. He reports headaches for which he is on analgesics. He also reports that he recently had CT scan of the brain for this. He reports dizziness when getting up fast but otherwise no dizziness, no chest pain. He has a cough with whitish phlegm at present. He has no nausea, no vomiting, no abdominal pains, no bone pains, no diarrhea. He had constipation recently but this has improved with stool softeners. No urinary problems other than scant urine. He was advised to increase his fluid intake for this. He has had mild hemoptysis but this has improved since being off Aspirin and blood thinner. No mucositis, no edema and no skin rash. PHYSICAL EXAMINATION: Vital signs: Weight is 76.8 kilograms, blood pressure 93/70, heart rate 67 per minute, temperature 97.4, oxygen saturation 94% on room-air. HEENT: Pinkish conjunctivae, anicteric sclera. Normocephalic, atraumatic. No oral mucositis. No oral mucosal lesions. Lymphs: No palpable cervical nodes. Lungs: Fair air entry, no rales, no rhonchi, no wheeze. Heart: S1, S2 regular. Abdomen: Soft, nontender, no guarding, positive bowel sounds, no palpable masses. Extremities: No calf swelling, no calf tenderness, no pedal edema, no cyanosis. IMPRESSION/PLAN: Mr. Robertson is scheduled to receive Docetaxel and Ramucirumab chemotherapy today. He tells me he recently had a CT scan the results of which are not available to me at this time but we will obtain the results. We will monitor urinalysis while on Ramucirumab because of risk for proteinuria. MTDD
[2020-04-02 15:46] LABS: ALBUMIN 2.6 GM/DL (3.2-5.2); BILIRUBIN,TOTAL 0.4 MG/DL (0.2-1.0); CALCIUM LEVEL 10.1 MG/DL (8.8-10.2); CREATININE FOR GFR 1.34 MG/DL (0.70-1.30); FREE T4 1.36 NG/DL (0.76-1.46); GLOMERULAR FILTRATION RATE 55.9 (>42); THYROID STIMULATING HORMONE 2.93 uIU/ML (0.358-3.740); TOTAL PROTEIN 7.2 GM/DL (6.4-8.2)
== END 2020-03-11 08:08 | disposition home or self-care (01) ==
LOC: M ONCM 08:08
PROVIDERS: ATTEND Internal Medicine Medical Oncology
DX: Z51.11 Encounter for antineoplastic chemotherapy (principal); C34.92 Malignant neoplasm of unspecified part of left bronchus or lung; N32.9 Bladder disorder, unspecified; I71.3 Abdominal aortic aneurysm, ruptured; I10 Essential (primary) hypertension; M10.9 Gout, unspecified; N40.1 Benign prostatic hyperplasia with lower urinary tract symptoms; E78.00 Pure hypercholesterolemia, unspecified; Z79.899 Other long term (current) drug therapy; M25.561 Pain in right knee; M53.86 Other specified dorsopathies, lumbar region; M54.5 Low back pain; R59.9 Enlarged lymph nodes, unspecified
CPT/HCPCS: 36415; 36430; 36591; 70491; 71275; 72110; 73560; 74177; 80053; 81001; 82378; 84439; 84443; 85025; 85027; 85049; 85055; 86850; 86900; 86901; 86920; 96360; 96361; 96365; 96366; 96367; 96372; 96375; 96377; 96413; 96415; 96417; G0463; J1100; J1200; J1442; J1453; J1642; J2469; J2505; J9045; J9171; J9264; J9271; J9308; P9016; Q9963; Q9967